=== PATIENT | female | born 1960 | race Caucasian/White ===

== ENCOUNTER → 2017-10-17 | Outpatient (CLI) | payer OTHER, SELFPAY | PROVIDERS: Family Provider Family Medicine; Visit Provider Nurse Practitioner | DX: I48.0 Paroxysmal atrial fibrillation (principal) | CPT/HCPCS: 93306 ==

== ENCOUNTER → 2017-12-24 09:39 | Outpatient (CLI) | payer OTHER, SELFPAY ==
--- NOTE | 2017-12-24 09:43 | MM_ITS ---
MM Dig screening mamm BI w/CAD CAD Screening COMPARISON: Digital mammograms to 2015 and 12/21/2016 INDICATION: There is a history of breast cancer patient's grandmother diagnosed after menopause. TECHNIQUE: Standard CC and MLO images were obtained. R2 CAD reviewed. FINDINGS: Prominent diffuse fibroglandular densities are seen throughout both breasts. There are couple of mole markers left breast. There is a possible change in asymmetric density inner quadrant right breast only definitely seen on the cc view. Given the patient return for spot compression view and 90 degrees lateral view there are no suspicious microcalcifications. IMPRESSION: Moderate diffuse breast density with possible asymmetric density right breast BI-RADS Category: 0 Need Additional Imaging Evaluation RECOMMENDED FOLLOW-UP: IMM - IMMEDIATE FOLLOW-UP RECOMMENDED (A letter has been sent to the patient regarding results of the study.)
== END ==
PROVIDERS: Family Provider Family Medicine; PCP Family Medicine; Visit Provider Obstetrics & Gynecology Gynecology
DX: Z12.31 Encounter for screening mammogram for malignant neoplasm of breast (principal)
CPT/HCPCS: 77067

== ENCOUNTER → 2018-05-10 14:52 | Outpatient (CLI) | payer OTHER, SELFPAY | PROVIDERS: PCP Family Medicine; Visit Provider Internal Medicine Clinical Cardiac Electrophysiology | DX: I48.0 Paroxysmal atrial fibrillation (principal) | CPT/HCPCS: 93005 ==

== ENCOUNTER → 2019-06-26 08:09 | Outpatient (CLI) | payer SELFPAY ==
--- NOTE | 2019-06-26 08:11 | CT_ITS ---
PROCEDURE: CT HEART W CALCIUM SCORE CLINICAL HISTORY: SCREENING COMPARISON: No exams were available for comparison TECHNIQUE: Axial images obtained with sagittal and coronal reformats. All CT scans at the facility use one or more dose reduction, viz: automated exposure control, ma/kV adjustment per patient size (including targeted exams where dose is matched to indication, i.e. head), or iterative reconstruction technique. FINDINGS: The coronary artery calcium score is 2 indicating minimal plaque burden and low cardiovascular disease risk Incidental note is made of a small hiatal hernia. Old granulomatous disease is noted. IMPRESSION: Minimal plaque burden with low cardiovascular disease risk Dictated by: Monty Holder MD 06/26/2019 17:47 Signed by: <Electronically signed by Monty Holder MD in [place]> 06/26/2019 17:47
== END ==
PROVIDERS: PCP Family Medicine; Visit Provider Internal Medicine Cardiovascular Disease
DX: Z13.6 Encounter for screening for cardiovascular disorders (principal)
CPT/HCPCS: 75571

== ENCOUNTER 2019-12-02 21:16 | Observation (INO) ==
[2019-12-02 21:50] LABS: Basophils # 0.1 K/mm3 (0-0.2); Basophils % 0.8 % (0.1-2.0); Eosinophils # 0.4 K/mm3 (0.0-0.4); Eosinophils % 3.2 % (0.1-12.0); Hematocrit 40.2 % (37.0-47.0); Lymphocytes # 3.4 K/mm3 (0.7-4.5); Lymphocytes % 29.5 % (10-50); Mean Corpuscular HGB Conc 32.2 g/dL (31.8-35.4); Mean Corpuscular Volume 88.9 fl (81-99); Monocytes # 0.6 K/mm3 (0.1-1.0); Monocytes % 5.1 % (1.7-9.3); Neutrophils % 61.4 % (37.0-80.0); Platelet Count 429 K/mm3 (142-424); Red Blood Count 4.53 M/mm3 (4.20-5.40); Red Cell Distribution Width 13.9 % (11.5-17.5); White Blood Count 11.4 K/mm3 (4.8-10.8)
[2019-12-02 22:04] LABS: Anion Gap 13.2 mEq/L (5-15); Blood Urea Nitrogen 15 mg/dL (7-18); Calcium 9.2 mg/dL (8.5-10.1); Carbon Dioxide 29 mmol/L (21.0-32.0); Chloride 104 mmol/L (98-107); Glucose 114 mg/dL (74-106); Sodium 143 mmol/L (136-145)
--- NOTE | 2019-12-02 22:58 | Emergency Department Note ---
ED Disposition Clinical Impression: Chest pain Qualifiers: Chest pain type: precordial pain Qualified Code(s): R07.2 - Precordial pain Adverse reaction to drug Qualifiers: Encounter type: initial encounter Qualified Code(s): T50.905A - Adverse effect of unspecified drugs, medicaments and biological substances, initial encounter Disposition: Admitted as Observation Condition on Discharge: Good Referrals: Jp Cuevas MD [Primary Care Provider] - - Critical Care Critical Care Time: No Attestation: On 12/02/19, the high probability of a clinically significant, sudden or life threatening deterioration of the following system(s) required my full and direct attention, intervention and personal management. The time I documented below is in addition to time spent performing reported procedures but includes the following listed in this critical care notation. Medical Decision Making - Medical Records Medical records reviewed: Yes: I reviewed the patient's medical records. - Ashutosh Inquiry Pt receiving controlled substance: No Vital Signs: 12/02/19 21:23 Temperature 98.0 F Temperature Source Oral Pulse Rate [Right Brachial] 64 Respiratory Rate 16 Blood Pressure [Right Arm] 167/82 H Blood Pressure Mean [Right Arm] 110 Blood Pressure Source [Right Arm] Automatic Cuff Blood Pressure Position [Right Arm] Sitting 02 Sat by Pulse Oximetry 99 Oxygen Delivery Method Room Air - Lab Data Lab results reviewed: Yes: I reviewed the patient's lab results. Lab Results 12/02/19 21:30: Influenza Type A Ag Negative, Influenza Type B Ag Negative 12/02/19 21:35: WBC 11.4 H, RBC 4.53, Hgb 13.0, Hct 40.2, MCV 88.9, MCH 28.6, MCHC 32.2, RDW 13.9, Plt Count 429 H, MPV 8.0, Neut % (Auto) 61.4, Lymph % (Auto) 29.5, [place] % (Auto) 5.1, Eos % (Auto) 3.2, Baso % (Auto) 0.8, Neut # (Auto) 7.0, Lymph # (Auto) 3.4, [place] # (Auto) 0.6, Eos # (Auto) 0.4, Baso # (Auto) 0.1 12/02/19 21:35: Sodium 143, Potassium 3.2 L, Chloride 104, Carbon Dioxide 29, Anion Gap 13.2, BUN 15, Creatinine 1.01, Estimated Creat Clear 70, Estimated GFR 56 L, Est GFR ( Amer) 68, Glucose 114 H, Calcium 9.2, Troponin I < 0.02 Result diagrams: 12/02/19 21:35 12/02/19 21:35 Orders (Tests/Meds): ED MEDICATIONS Generic Name Dose Route Start Last Admin Trade Name Freq PRN Reason Stop Dose Admin Sodium Chloride 8 ml 12/02/19 21:27 Sodium Chloride 0.9% 10ml Vial IV 01/01/20 21:26 NEEDED PRN dilute pepcid Discontinued Medications Generic Name Dose Route Start Last Admin Trade Name Freq PRN Reason Stop Dose Admin Aspirin 243 mg 12/02/19 21:47 12/02/19 22:07 Aspirin 81mg Chewable Tablet PO 12/02/19 21:48 243 mg ONCE ONE Administration Diphenhydramine HCl 25 mg 12/02/19 21:27 12/02/19 21:38 Benadryl 50mg/1ml Vial IV 12/02/19 21:28 25 mg ONCE ONE Administration Famotidine 20 mg 12/02/19 21:27 12/02/19 21:37 Pepcid 20mg/2ml Vial IV 12/02/19 21:28 20 mg ONCE ONE Administration Methylprednisolone Sodium Succinate 125 mg 12/02/19 21:27 12/02/19 21:37 Solu-Medrol 125mg/2ml Vial IV 12/02/19 21:28 125 mg ONCE ONE Administration ORDERS Category Date Time Status Chest XR 2 view (NOT portable) [XR chest 2V] Stat Exams 12/02/19 21:28 Taken Troponin I Q3H Lab 12/03/19 01:00 Ordered Troponin I Q3H Lab 12/03/19 04:00 Ordered - ECG Data Tracing #1 Normal Sinus Rhythm: Yes Ischemic changes: non-specific ST-T wave changes Tracing #2 Normal Sinus Rhythm: Yes Ischemic changes: non-specific ST-T wave changes - Physician Consults Physician Consulted: faith Reason -: Admission Chest Pain HPI - General Chief Complaint: Allergic Reaction Stated Complaint: Possible Reaction to Medication Time Seen by Provider: 12/02/19 21:30 Mode of Arrival: Family Vehicle Source of Information: Patient, Spouse, Medical Record Limitations: No Limitations Description of Symptoms (Recalled from ER Triage Doc. by RN): pt spoke with dr cuevas who recommended er eval for possible allergic reaction; pt is alert, o riented. states she has been taking tamiflu for 5 days and has progressively worsening tightness/swelling in her throat. denies any other new meds. pt states she has a history of allergies to pcn. - History of Present Illness HPI narrative: pt with feeling of throat fullness assoc with chest tightness over the last few days - no known heart disease but has htn - has been on jesusita and has cough for last few weeks and on tamiflu for exposure to flu - had relief with ntg - no tongue swelling reported MD complaint: chest pain indicative of cardiac Onset (ago): hour(s) Duration: now resolved Activity at onset: during rest Pain location: substernal Quality: heaviness Pain radiation: neck Relieving factors: nitroglycerin Risk Factors for CAD: Hypertension, Family Hx of CAD Treatments prior to or on arrival for Cardiac Chest Pain: none - TAMIKA Score for Non-Stemi Age of Patient: 50-59 years old Heart Rate: 50-69 bpm Systolic Blood Pressure: 160-199 mmHg Serum Creatinine: 0.80-1.19 mg/dl CHF [place] Class: I-No CHF Other Risk Factors: None Non-Stemi Risk Score: 61 - Related Data On Oral Contraceptives: No Home Medications Medication Instructions Recorded Confirmed Fluticasone Propionate 1 spray INHALATION DAILY 02/02/19 12/02/19 Metoclopramide HCl [Reglan 5mg 5 mg PO TID 02/02/19 12/02/19 Tablet] hydroCHLOROthiazide [HCTZ 12.5mg 12.5 mg PO DAILY 02/02/19 12/02/19 capsule] Sod Picosulf/Mag Ox/Citric AC 1 packet PO DAILY 09/24/19 12/02/19 [Prepopik] Aspirin 81 mg PO DAILY 09/29/19 12/02/19 Levothyroxine Sodium [Synthroid 75 mcg PO DAILY 09/29/19 12/02/19 75mcg (0.075mg) tablet] Loratadine [Claritin 10mg Tablet] 10 mg PO DAILY 09/29/19 12/02/19 Nebivolol HCl [Bystolic] 10 mg PO DAILY 09/29/19 12/02/19 Ramipril 10 mg PO DAILY 09/29/19 12/02/19 Miscellaneous [Unknown Home 20 mg PO BID 09/30/19 12/02/19 Medication] Allergies Allergy/AdvReac Type Severity Reaction Status Date / Time Penicillins [PENICILLINS] Allergy Unknown Verified 10/10/19 09:59 [facility] History - Hepatitis A Screen Drug use history?: No High risk sexual behaviors?: No History of sexually transmitted infection?: No Currently employed?: No Childcare worker?: No Do you have indoor plumbing?: Yes Do you have electricity?: Yes Attestation statement:: This patient has been screened for Hepatitis A risk factors. I have reviewed the patient's past medical history: Yes Medical History: Reports:: Atrial Fibrillation, Hypertension Denies:: Cancer, Diabetes Mellitus Type 1, Diabetes Mellitus Type 2, Internal Pacemaker, MRSA, Seizures Other Medical History: Denies: Blood Transfusion Reaction Laterality Cases: Bilateral: Tonsillectomy Other Surgeries: Yes: Colonoscopy. No: Pacemaker Amputation: No Fractures: Yes (SHOULDERS AND BACK) - Social History Smoking Status: Never smoker Alcohol Intake: never Substance Use Type: other Occupational Status: employed, other Housing: house Household Members: spouse Family Hx:: No significant family history ROS Obtained: Yes All systems reviewed & no additional complaints - Constitutional Constitutional: Denies fever(s) - Eyes Eyes: Denies change in vision - ENT Ears, Nose, Mouth, and Throat: Denies sore throat - Cardiovascular Cardiovascular: Reports chest pain at rest, Denies dyspnea - Respiratory Respiratory: No cough - Gastrointestinal Gastrointestingal: Denies: vomiting - Genitourinary Female Genitourinary: Denies hematuria - Musculoskeletal Musculoskeletal: Denies joint pain - Integumentary/Breasts Skin/Breast: Denies rash - Neurologic Neurologic: Denies focal weakness, Denies seizure-like activity Physical Exam - General General appearance: alert - Head Head exam: normocephalic - Eye Eye exam: Present: PERRL, EOMI - ENT ENT exam: Present: mucous membranes moist, other (tongue ok ) - Neck Neck exam: Present: trachea midline - Respiratory Respiratory exam: Present: normal lung sounds bilaterally. Absent: respiratory distress - Cardiovascular Cardiovascular exam: Present: regular rate, systolic murmur, +S4 - Abdominal Exam Abdominal exam: Present: soft - Extremities Exam Extremities exam: Present: full ROM - Neurological Exam Neurological exam: Present: alert, CN II-XII intact - Psychiatric Psychiatric exam: Present: normal affect - Skin Skin exam: Absent: rash
[2019-12-02 23:25] LABS: Microscopic, Urine URINE MICROSCOPIC (MICROSCOPIC)
[2019-12-02 23:27] LABS: Appearance,Urine CLEAR (Clear); Bilirubin,Urine Negative (Negative); Blood, Urine TRACE-L (Negative); Color,Urine YELLOW (Yellow); Glucose,Urine (UA) Negative (Negative); Ketones,Urine Negative (Negative); Leukocyte Esterase,Urine Negative (Negative); Protein,Urine Negative (Negative); Specific Gravity, Urine 1.015 (1.005-1.030); Urobilinogen,Urine 0.2 EU/dl (0.2)
[2019-12-02 23:35] LABS: Bacteria,Urine Trace /lpf; RBC,Urine Occasional #/hpf (0-3); Squamous Epithelial Cell,Urine Occasional #/hpf (0-5); WBC,Urine Occasional #/hpf (0-3)
[2019-12-03 04:20] LABS: Basophils % 0.2 % (0.1-2.0); Eosinophils % 0.2 % (0.1-12.0); Hematocrit 37.3 % (37.0-47.0); Hemoglobin 11.9 g/dL (12.2-16.2); Lymphocytes % 13.1 % (10-50); Mean Corpuscular HGB Conc 31.8 g/dL (31.8-35.4); Mean Corpuscular Volume 88.7 fl (81-99); Mean Platelet Volume 8.2 fl (7.4-10.4); Monocytes # 0.1 K/mm3 (0.1-1.0); Monocytes % 1.7 % (1.7-9.3); Neutrophils # 6.6 K/mm3 (1.8-7.8); Neutrophils % 84.8 % (37.0-80.0); Platelet Count 411 K/mm3 (142-424); Red Blood Count 4.21 M/mm3 (4.20-5.40); Red Cell Distribution Width 13.7 % (11.5-17.5); White Blood Count 7.8 K/mm3 (4.8-10.8)
[2019-12-03 04:32] LABS: Anion Gap 15.6 mEq/L (5-15); Calcium 8.6 mg/dL (8.5-10.1); Chol/HDL Ratio 3.8 (1-3.5)
--- NOTE | 2019-12-03 07:15 | Pharmacy Consult Notes ---
[facility] Pharmacy VTE Monitoring - Patient Demographics Admission date: 12/03/19 Report Date: 12/03/19 Time: 07:14 Allergies/Adverse Reactions: Patient Allergies Penicillins [PENICILLINS] Allergy (Unknown, Verified 10/10/19 09:59) Height: 1.63 m Weight: 73.7 kg Patient Problems: Current Active Problems Chest pain (Acute) Adverse reaction to drug (Acute) - VTE Risk Labs: VTE Related Lab Results Hgb 11.9 g/dL (12.2-16.2) L 12/03/19 04:10 Hct 37.3 % (37.0-47.0) 12/03/19 04:10 Plt Count 411 K/mm3 (142-424) 12/03/19 04:10 BUN 12 mg/dL (7-18) 12/03/19 04:10 Creatinine 0.99 mg/dL (0.55-1.02) 12/03/19 04:10 Estimated Creat Clear 72 mL/min (50-200) 12/03/19 04:10 Was VTE Risk Assessment Performed: Yes VTE Score: 3 VTE Risk Level: Low Risk - Prophylaxis VTE Prophylaxis Ordered?: Yes Types of VTE Prophylaxis: TEDS Knee High Location of Applied Device: Bilateral Lower Extremeties
--- NOTE | 2019-12-03 08:05 | History & Physical Report ---
*Admission Date: 12/03/19 *Chief complaint: chest pressure, cough *History of present illness: Ms. Espinoza is a 59-year-old female with a history of hypothyroidism, hypertension, and A. fib who began feeling poorly approximately a week ago. She states her boss had the flu, therefore she started Tamiflu for prophylaxis. She did have some chills but no fever approximately a week ago and has had some sinus congestion and a sore throat. She has also had a cough that has not been productive. She states the cough and the chest pressure began to worsen and she felt like her throat was swelling. She states she called to make a doctor's appointment and was going to see Dr. cuevas today, however last night, she could not lay down due to shortness of breath and called Dr. Cuevas golf tournament consultant. She was worried she may be having a reaction to the Tamiflu. She was told to present to the emergency room. In the ER, she was given 3 aspirin, Benadryl, and nitroglycerin. Her chest pressure did resolve, but she is unsure which medication helped. She feels a little bit better this morning. Her shortness of breath has improved and as has her chest pressure. Her chest x-ray did show a right basilar pneumonia. [facility] History I have reviewed the patient's past medical history: Yes Medical History: Reports:: Atrial Fibrillation, Hypertension Denies:: Cancer, Diabetes Mellitus Type 1, Diabetes Mellitus Type 2, Internal Pacemaker, MRSA, Seizures *Have you ever received a pneumonia vaccine?: Yes *Have you received a flu vaccine this season?: Yes Other Medical History: Reports: Hypothyroidism, Other (Avascular necrosis right shoulder ). Denies: Blood Transfusion Reaction Laterality Cases: Right: Other, Bilateral: Tonsillectomy Other Surgeries: Yes: Colonoscopy, Tubal Ligation, Other (RIGHT SHOULDER REPAIR). No: Pacemaker Amputation: No Fractures: Yes (SHOULDERS AND BACK) - *Social History Educational Level: Completed High School Smoking Status: Never smoker Alcohol Intake: never Substance Use Type: other *Occupational Status:: employed Housing: house Household Members: spouse *Travel in the last 8 weeks: None Family Hx:: Cancer, Coronary Artery Disease, Diabetes, Thyroid Disorder Review of Systems - Constitutional Reports body ache(s), Reports chills, Reports headache(s), Reports weakness, Denies fever(s) - Eyes Denies blurry vision, Denies double vision - ENT Reports nasal congestion, Reports sore throat - *Cardiovascular Reports chest pain, Reports shortness of breath, Denies rapid, pounding, or irregular heartbeat - *Respiratory Reports cough, Reports shortness of breath - *Gastrointestinal Reports nausea, Denies abdominal pain, Denies loose stools, Denies vomiting - *Genitourinary Denies difficulty urinating, Denies painful urination - *Musculoskeletal Reports body aches, Denies joint pain - *Neurologic Reports headache(s), Reports dizziness, Reports weakness, Denies localized weakness, Denies seizure-like activity Meds Home Medications Medication Instructions Recorded Confirmed Type hydroCHLOROthiazide [HCTZ 12.5mg 12.5 mg PO DAILY 02/02/19 12/03/19 History capsule] Aspirin 81 mg PO DAILY 09/29/19 12/03/19 History Levothyroxine Sodium [Synthroid 75 mcg PO DAILY 09/29/19 12/03/19 History 75mcg (0.075mg) tablet] Nebivolol HCl [Bystolic] 10 mg PO DAILY 09/29/19 12/03/19 History Ramipril 10 mg PO DAILY 09/29/19 12/03/19 History Flecainide Acetate [Tambocor 50mg 50 mg PO BID 12/03/19 12/03/19 History tablet] Glucosamine/D3/Boswellia [place] 1 each PO BID 12/03/19 12/03/19 History [Osteo Bi-Flex Tablet] Allergies Allergy/AdvReac Type Severity Reaction Status Date / Time Penicillins [PENICILLINS] Allergy Unknown Verified 10/10/19 09:59 Exam Vital signs and Labs for Last 24 Hours: Temp Pulse Resp BP Pulse Ox 98.0 F 58 L 18 117/62 99 12/03/19 05:48 12/03/19 05:48 12/03/19 05:48 12/03/19 05:48 12/03/19 05:48 Laboratory Results - last 24 hr 12/02/19 21:30: Influenza Type A Ag Negative, Influenza Type B Ag Negative 12/02/19 21:35: WBC 11.4 H, RBC 4.53, Hgb 13.0, Hct 40.2, MCV 88.9, MCH 28.6, MCHC 32.2, RDW 13.9, Plt Count 429 H, MPV 8.0, Neut % (Auto) 61.4, Lymph % (Auto) 29.5, [place] % (Auto) 5.1, Eos % (Auto) 3.2, Baso % (Auto) 0.8, Neut # (Auto) 7.0, Lymph # (Auto) 3.4, [place] # (Auto) 0.6, Eos # (Auto) 0.4, Baso # (Auto) 0.1 12/02/19 21:35: Sodium 143, Potassium 3.2 L, Chloride 104, Carbon Dioxide 29, Anion Gap 13.2, BUN 15, Creatinine 1.01, Estimated Creat Clear 70, Estimated GFR 56 L, Est GFR ( Amer) 68, Glucose 114 H, Calcium 9.2, Troponin I < 0.02 12/02/19 22:01: Urine Color Yellow, Urine Appearance Clear, Urine pH 7.0, Ur Specific [place] 1.015, Urine Protein Negative, Urine Glucose (UA) Negative, Urine Ketones Negative, Urine Blood Trace-l, Urine Nitrate Negative, Urine Bilirubin Negative, Urine Urobilinogen 0.2, Ur Leukocyte Esterase Negative, Urine RBC Occasional, Urine WBC Occasional, Ur Squamous Epith Cells Occasional, Urine Bacteria Trace 12/03/19 00:55: Troponin I < 0.02 12/03/19 04:10: Troponin I < 0.02 12/03/19 04:10: WBC 7.8 D, RBC 4.21, Hgb 11.9 L, Hct 37.3, MCV 88.7, MCH 28.2, MCHC 31.8, RDW 13.7, Plt Count 411, MPV 8.2, Neut % (Auto) 84.8 H, Lymph % (Auto) 13.1, [place] % (Auto) 1.7, Eos % (Auto) 0.2, Baso % (Auto) 0.2, Neut # (Auto) 6.6, Lymph # (Auto) 1.0, [place] # (Auto) 0.1, Eos # (Auto) 0.0, Baso # (Auto) 0.0 12/03/19 04:10: Sodium 144, Potassium 3.6, Chloride 106, Carbon Dioxide 26, Anion Gap 15.6 H, BUN 12, Creatinine 0.99, Estimated Creat Clear 72, Estimated GFR 58 L, Est GFR ( Amer) 70, Glucose 144 H D, Calcium 8.6, Triglycerides 47, Cholesterol 175, LDL Cholesterol 120, VLDL Cholesterol 9, HDL Cholesterol 46, Cholesterol/HDL Ratio 3.8 H I & O for Last 24 hours: Intake & Output 11/30/19 12/01/19 12/02/19 12/03/19 11:59 11:59 11:59 11:59 Intake Total 1000 / 1000 Balance 1000 / 1000 Weight 162 lb 7.691 oz - Constitutional no acute distress - *Routine HEENT Exam Head: Present: normocephalic Eye: Present: EOMI, PERRL ENT: Present: mucous membranes dry - *Routine Neck Exam Present: supple. Absent: lymphadenopathy - *Routine Respiratory Exam Present: decreased breath sounds (right base), CTA bilaterally - *Routine Cardiovascular Exam Present: RRR - *Routine Abdominal Exam Present: soft, normoactive bowel sounds. Absent: tenderness - *Routine Extremities Exam Absent: cyanosis, clubbing, edema - *Routine Skin Exam Present: warm. Absent: rash - *Routine Neurological Exam Present: alert, oriented X3 H&P: Result - Impressions CXR - Patchy infiltrate in the right lung base Assessment and Plan (1) Chest pain Current visit: Yes Status: Acute Qualifiers: Chest pain type: precordial pain Qualified Code(s): R07.2 - Precordial pain Category: Medical Code(s): R07.9 - Chest pain, unspecified (2) Pneumonia Current visit: Yes Status: Acute Category: Medical Code(s): J18.9 - Pne umonia, unspecified organism (3) Adverse reaction to drug Current visit: Yes Status: Acute Qualifiers: Encounter type: initial encounter Qualified Code(s): T50.905A - Adverse effect of unspecified drugs, medicaments and biological substances, initial encounter Category: Medical Code(s): T50.905A - Adverse effect of unspecified drugs, medicaments and biological substances, initial encounter (4) Hypokalemia Current visit: Yes Status: Resolved Category: Medical Code(s): E87.6 - Hypokalemia (5) Hypertension Current visit: Yes Status: Chronic Category: Medical Code(s): I10 - Essential (primary) hypertension (6) History of atrial fibrillation Current visit: Yes Status: Chronic Category: Medical Code(s): Z86.79 - Personal history of other diseases of the circulatory system - Assessment and plan all Dx Assessment and Plan for all problems:: The patient does feel better after receiving steroids, Benadryl, aspirin, and nitro in the emergency room. Her chest pressure has resolved and her shortness of breath has improved. Her chest x-ray did show a right-sided pneumonia, which would explain the elevated white blood cell count and the cough for the past week. It is unclear whether her other symptoms were due to a reaction to the Tamiflu, or the pneumonia. Patient will need to be started on antibiotics. Will discuss with Dr. Cuevas. She may be able to be discharged home today on oral antibiotics. Her white blood cell count has normalized as has her potassium. Her oxygen has been stable on room air. Cardiology has been consulted and an echo has been ordered by the emergency room physician.
--- NOTE | 2019-12-03 09:20 | Consult Report ---
History of Present Illness Consult date: 12/03/19 Requesting physician: Jp Nguyen Consult reason: chest pain, shortness of breath Chief complaint: SOB and chest pain Additional Medical History:: 1. palps 2. afib 3. thyroid disorder 4. htn History of present illness: This is a 59-year-old white female who presented to the emergency department with complaints of shortness of breath, chest pain, and cough. The patient does have a history of hypertension, atrial fibrillation and hypothyroidism. She states for the last week she has not been feeling well. Her boss was diagnosed with the flu and she was started on Tamiflu for prophylaxis. She states that she has been having chills and a nonproductive cough. She states that her throat has been sore as well. The patient thought maybe she was having a re action to the Tamiflu and decided to come into the emergency department because she was now having shortness of breath and chest pain as well. The patient reports that she gets significantly short of breath and has a cough that is nonproductive. When she takes deep breath she has having pain in her chest. She states that this is a heavy and pressure sensation. She states last night she could not lie flat because of the shortness of breath and decided to come into the emergency department. She was treated with 3 aspirin, Benadryl and nitroglycerin. She did have resolution of her chest pressure and shortness of breath at that time. She states that she is still a little short of breath at times and has some chest pressure with coughing still but it is much better. The patient did have a right basilar pneumonia on chest x-ray and is being treated with antibiotics per her primary care provider. She denies any edema, fever, nausea, vomiting, diarrhea. [facility] History I have reviewed the patient's past medical history: Yes Medical History: Reports:: Atrial Fibrillation, Hypertension Denies:: Cancer, Diabetes Mellitus Type 1, Diabetes Mellitus Type 2, Internal Pacemaker, MRSA, Seizures *Have you ever received a pneumonia vaccine?: Yes *Have you received a flu vaccine this season?: Yes Other Medical History: Reports: Hypothyroidism, Other (Avascular necrosis right shoulder ). Denies: Blood Transfusion Reaction Laterality Cases: Right: Other, Bilateral: Tonsillectomy Other Surgeries: Yes: Colonoscopy, Tubal Ligation, Other (RIGHT SHOULDER REPAIR). No: Pacemaker Amputation: No Fractures: Yes (SHOULDERS AND BACK) - *Social History Educational Level: Completed High School Smoking Status: Never smoker Alcohol Intake: never Substance Use Type: other *Occupational Status:: employed Housing: house Household Members: spouse *Travel in the last 8 weeks: None Family Hx:: Cancer, Coronary Artery Disease, Diabetes, Thyroid Disorder Meds Home Medications Medication Instructions Recorded Confirmed Type hydroCHLOROthiazide [HCTZ 12.5mg 12.5 mg PO DAILY 02/02/19 12/03/19 History capsule] Aspirin 81 mg PO DAILY 09/29/19 12/03/19 History Levothyroxine Sodium [Synthroid 75 mcg PO DAILY 09/29/19 12/03/19 History 75mcg (0.075mg) tablet] Nebivolol HCl [Bystolic] 10 mg PO DAILY 09/29/19 12/03/19 History Ramipril 10 mg PO DAILY 09/29/19 12/03/19 History Flecainide Acetate [Tambocor 50mg 50 mg PO BID 12/03/19 12/03/19 History tablet] Glucosamine/D3/Boswellia Madison 1 each PO BID 12/03/19 12/03/19 History [Osteo Bi-Flex Tablet] Oseltamivir Phosphate 75 mg PO DAILY 12/03/19 12/03/19 History Allergies Allergy/AdvReac Type Severity Reaction Status Date / Time Penicillins [PENICILLINS] Allergy Unknown Verified 10/10/19 09:59 Review of Systems - Review of Systems Review of systems:: pertinent systems reviewed and negative unless documented below - Constitutional Reports body ache(s), Reports chills, Reports fatigue - *Cardiovascular Reports chest pain, Reports chest pain at rest - *Respiratory Reports chest congestion, Reports cough, Reports shortness of breath, Reports shortness of breath with activity - *Neurologic Reports headache(s), Reports dizziness, Reports weakness, Denies localized weakness, Denies seizure-like activity Exam Vital signs and Labs for Last 24 Hours: Temp Pulse Resp BP Pulse Ox 98.0 F 73 19 132/61 99 12/03/19 08:00 12/03/19 08:00 12/03/19 08:00 12/03/19 08:00 12/03/19 08:00 Laboratory Results - last 24 hr 12/02/19 21:30: Influenza Type A Ag Negative, Influenza Type B Ag Negative 12/02/19 21:35: WBC 11.4 H, RBC 4.53, Hgb 13.0, Hct 40.2, MCV 88.9, MCH 28.6, MCHC 32.2, RDW 13.9, Plt Count 429 H, MPV 8.0, Neut % (Auto) 61.4, Lymph % (Auto) 29.5, Dixie % (Auto) 5.1, Eos % (Auto) 3.2, Baso % (Auto) 0.8, Neut # (Auto) 7.0, Lymph # (Auto) 3.4, Dixie # (Auto) 0.6, Eos # (Auto) 0.4, Baso # (Auto) 0.1 12/02/19 21:35: Sodium 143, Potassium 3.2 L, Chloride 104, Carbon Dioxide 29, Anion Gap 13.2, BUN 15, Creatinine 1.01, Estimated Creat Clear 70, Estimated GFR 56 L, Est GFR ( Amer) 68, Glucose 114 H, Calcium 9.2, Troponin I < 0.02 12/02/19 22:01: Urine Color Yellow, Urine Appearance Clear, Urine pH 7.0, Ur Specific [place] 1.015, Urine Protein Negative, Urine Glucose (UA) Negative, Urine Ketones Negative, Urine Blood Trace-l, Urine Nitrate Negative, Urine Bilirubin Negative, Urine Urobilinogen 0.2, Ur Leukocyte Esterase Negative, Urine RBC Occasional, Urine WBC Occasional, Ur Squamous Epith Cells Occasional, Urine Bacteria Trace 12/03/19 00:55: Troponin I < 0.02 12/03/19 04:10: Troponin I < 0.02 12/03/19 04:10: WBC 7.8 D, RBC 4.21, Hgb 11.9 L, Hct 37.3, MCV 88.7, MCH 28.2, MCHC 31.8, RDW 13.7, Plt Count 411, MPV 8.2, Neut % (Auto) 84.8 H, Lymph % (Auto) 13.1, Dixie % (Auto) 1.7, Eos % (Auto) 0.2, Baso % (Auto) 0.2, Neut # (Auto) 6.6, Lymph # (Auto) 1.0, Dixie # (Auto) 0.1, Eos # (Auto) 0.0, Baso # (Auto) 0.0 12/03/19 04:10: Sodium 144, Potassium 3.6, Chloride 106, Carbon Dioxide 26, Anion Gap 15.6 H, BUN 12, Creatinine 0.99, Estimated Creat Clear 72, Estimated GFR 58 L, Est GFR ( Amer) 70, Glucose 144 H D, Calcium 8.6, Triglycerides 47, Cholesterol 175, LDL Cholesterol 120, VLDL Cholesterol 9, HDL Cholesterol 46, Cholesterol/HDL Ratio 3.8 H I & O for Last 24 hours: Intake & Output 11/30/19 12/01/19 12/02/19 12/03/19 23:59 23:59 23:59 23:59 Intake Total 1000 / 1000 Balance 1000 / 1000 Weight 160 lb 162 lb 7.691 oz Narrative: EKG is sinus rhythm with a rate of 74 and poor R wave progression. Preliminary EF on echocardiogram is 50 to 60%. Awaiting official report. - Constitutional no acute distress, average body habitus - *Routine HEENT Exam Head: Present: normocephalic, atraumatic Eye: Present: EOMI, PERRL ENT: Present: mucous membranes moist - *Routine Neck Exam Present: supple, full ROM, normal carotid upstroke. Absent: JVD, carotid bruit, lymphadenopathy - *Routine Respiratory Exam Present: decreased breath sounds, rhonchi - *Routine Cardiovascular Exam Present: RRR, Normal S1, Normal S2. Absent: murmur - *Routine Abdominal Exam Present: soft, normoactive bowel sounds. Absent: tenderness, distended, rebound - *Routine Extremities Exam Present: full ROM, pulses intact, normal capillary refill. Absent: cyanosis, clubbing, edema - *Routine Skin Exam Present: intact, warm. Absent: erythema, rash - *Routine Neurological Exam Present: alert, oriented X3, CN II-XII intact. Absent: sensory deficit, motor deficit - Routine Psychiatric Exam Present: normal affect, normal thought process - Detailed Eye Exam Eyelids: Left normal inspection Assessment and Plan (1) Shortness of breath Current visit: Yes Status: Acute Category: Medical Code(s): R06.02 - Shortness of breath (2) Cough Current visit: Yes Status: Acute Category: Medical Code(s): R05 - Cough (3) Chest pain Current visit: Yes Status: Acute Qualifiers: Chest pain type: precordial pain Qualified Code(s): R07.2 - Precordial pain Category: Medical Code(s): R07.9 - Chest pain, unspecified (4) Pneumonia Current visit: Yes Status: Acute Category: Medical Code(s): J18.9 - Pneumonia, unspecified organism (5) Adverse reaction to drug Current visit: Yes Status: Acute Qualifiers: Encounter type: initial encounter Qualified Code(s): T50.905A - Adverse effect of unspecified drugs, medicaments and biological substances, initial encounter Category: Medical Code(s): T50.905A - Adverse effect of unspecified drugs, medicaments and biological substances, initial encounter (6) Hypokalemia Current visit: Yes Status: Resolved Category: Medical Code(s): E87.6 - Hypokalemia (7) Hypertension Current visit: Yes Status: Chronic Category: Medical Code(s): I10 - Essential (primary) hypertension (8) History of atrial fibrillation Current visit: Yes Status: Chronic Category: Medical Code(s): Z86.79 - Personal history of other diseases of the circulatory system - Assessment and plan all Dx Assessment and Plan for all problems:: Plan: 1. The patient was admitted to the hospital with shortness of breath, chest pain and a cough. The patient has been diagnosed with right basilar pneumonia and is being treated with antibiotics per her primary care provider. Will defer. 2. The patient has ruled out for an HI with 3- troponins. 3. Her echocardiogram does show preliminary EF of 50 to 60%. We are awaiting official dictation. There appears to be no wall motion abnormalities. 4. No plans for invasive cardiac testing as she has ruled out and her ejection fraction is normal. 5. Her blood pressure is well controlled. 6. Her LDL goal is less than 100. 7. The patient states that she does have a history of atrial fibrillation when she was toxic with her thyroid. She remains in sinus rhythm at this time. She follows with a molding machine tender, Dr. Jo, at [facility] will defer treatment of this to her regular molding machine tender. 8. No further recommendations at this time from a cardiac standpoint. The patient symptoms are most likely from her pneumonia. We do recommend that she follows up with her regular molding machine tender in 1 to 2 weeks. She states that she already has an appointment scheduled around February 18th. Thank you for the opportunity to help participate in the care of this patient.
--- NOTE | 2019-12-03 11:15 | Pharmacy Consult Notes ---
[facility] Pharmacy VTE Monitoring - Patient Demographics Admission date: 12/03/19 Report Date: 12/03/19 Time: 11:12 Allergies/Adverse Reactions: Patient Allergies Penicillins [PENICILLINS] Allergy (Unknown, Verified 10/10/19 09:59) Height: 1.63 m Weight: 73.7 kg Patient Problems: Current Active Problems Chest pain (Acute) Adverse reaction to drug (Acute) Pneumonia (Acute) Hypertension (Chronic) History of atrial fibrillation (Chronic) Shortness of breath (Acute) Cough (Acute) - VTE Risk Labs: VTE Related Lab Results Hgb 11.9 g/dL (12.2-16.2) L 12/03/19 04:10 Hct 37.3 % (37.0-47.0) 12/03/19 04:10 Plt Count 411 K/mm3 (142-424) 12/03/19 04:10 BUN 12 mg/dL (7-18) 12/03/19 04:10 Creatinine 0.99 mg/dL (0.55-1.02) 12/03/19 04:10 Estimated Creat Clear 72 mL/min (50-200) 12/03/19 04:10 Was VTE Risk Assessment Performed: Yes VTE Score: 3 VTE Risk Level: Low Risk - Prophylaxis VTE Prophylaxis Ordered?: Yes Types of VTE Prophylaxis: TEDS Knee High Location of Applied Device: Bilateral Lower Extremeties Pharmacologic Type: Other
--- NOTE | 2019-12-04 08:11 | Progress Note ---
Internal Medicine - PN: Subj *Date: 12/04/19 *Time: 08:08 Interval history: The patient feels well this morning. She did cough up a small and a sputum and this was sent for analysis. She would like to go home today. When she was admitted she was placed on carvedilol. I will let her resume her nebivolol at home. She is to discontinue the ramipril. She will receive a prescription for losartan 25 mg a day. We will follow-up on her blood pressure in the office next week, at the beginning of the week. She will discontinue the Tamiflu. Exam Vital signs and Labs for Last 24 Hours: Temp Pulse Resp BP Pulse Ox 98.0 F 74 16 117/62 95 12/04/19 04:00 12/04/19 04:00 12/04/19 04:00 12/04/19 04:00 12/04/19 04:00 I & O for Last 24 hours: Intake & Output 12/01/19 12/02/19 12/03/19 12/04/19 11:59 11:59 11:59 11:59 Intake Total 1360 / 1360 2941 / 2941 Balance 1360 / 1360 2941 / 2941 Weight 162 lb 7.691 oz 169 lb 5.04 oz Microbiology Reports for the Last 24 Hours: Microbiology 12/03/19 18:10 Sputum - Expectorated Sputum Gram Stain - Final - Constitutional no acute distress - *Routine HEENT Exam Head: Present: normocephalic ENT: Present: mucous membranes moist - *Routine Respiratory Exam Present: CTA bilaterally - *Routine Cardiovascular Exam Present: RRR (No ectopics) - *Routine Extremities Exam Absent: edema - *Routine Neurological Exam Present: alert, oriented X3 Assessment and Plan (1) Pneumonia Current visit: Yes Status: Acute Category: Medical Code(s): J18.9 - Pneumonia, unspecified organism (2) Shortness of breath Current visit: Yes Status: Acute Category: Medical Code(s): R06.02 - Shortness of breath (3) Cough Current visit: Yes Status: Acute Category: Medical Code(s): R05 - Cough (4) Chest pain Current visit: Yes Status: Acute Qualifiers: Chest pain type: precordial pain Qualified Code(s): R07.2 - Precordial pain Category: Medical Code(s): R07.9 - Chest pain, unspecified (5) Adverse reaction to drug Current visit: Yes Status: Acute Qualifiers: Encounter type: initial encounter Qualified Code(s): T50.905A - Adverse effect of unspecified drugs, medicaments and biological substances, initial encounter Category: Medical Code(s): T50.905A - Adverse effect of unspecified drugs, medicaments and biological substances, initial encounter (6) Hypokalemia Current visit: Yes Status: Resolved Category: Medical Code(s): E87.6 - Hypokalemia (7) Hypertension Current visit: Yes Status: Chronic Category: Medical Code(s): I10 - Essential (primary) hypertension (8) History of atrial fibrillation Current visit: Yes Status: Chronic Category: Medical Code(s): Z86.79 - Personal history of other diseases of the circulatory system - Assessment and plan all Dx Assessment and Plan for all problems:: See above narrative.
[2019-12-04 08:22] LABS: Anion Gap 11.2 mEq/L (5-15); Calcium 8.3 mg/dL (8.5-10.1)
[2019-12-04 08:40] LABS: Basophils % 0.3 % (0.1-2.0); Eosinophils # 0.1 K/mm3 (0.0-0.4); Eosinophils % 0.3 % (0.1-12.0); Hematocrit 37.4 % (37.0-47.0); Hemoglobin 11.6 g/dL (12.2-16.2); Lymphocytes # 3.9 K/mm3 (0.7-4.5); Lymphocytes % 22.9 % (10-50); Mean Corpuscular HGB Conc 30.9 g/dL (31.8-35.4); Mean Corpuscular Volume 89.3 fl (81-99); Mean Platelet Volume 7.7 fl (7.4-10.4); Monocytes # 0.6 K/mm3 (0.1-1.0); Monocytes % 3.6 % (1.7-9.3); Neutrophils # 12.3 K/mm3 (1.8-7.8); Neutrophils % 72.9 % (37.0-80.0); Platelet Count 400 K/mm3 (142-424); Red Blood Count 4.19 M/mm3 (4.20-5.40); White Blood Count 16.9 K/mm3 (4.8-10.8)
[2019-12-04 09:19] VITALS: BP 128/57
[2019-12-04 09:52] LABS: Lymphocytes % 25 % (10-50); Monocytes % 1 % (2-9); Neutrophils % 74 % (42-76); RBC Morphology Normal; Total Cells Counted 100
--- NOTE | 2019-12-04 13:15 | Discharge Summary ---
General - General Admission date:: 12/03/19 Discharge date: 12/04/19 HPI HPI: Ms. Espinoza is a 59-year-old female with a history of hypothyroidism, hypertension, and A. fib who began feeling poorly approximately a week ago. She states her boss had the flu, therefore she started Tamiflu for prophylaxis. She did have some chills but no fever approximately a week ago and has had some sinus congestion and a sore throat. She has also had a cough that has not been productive. She states the cough and the chest pressure began to worsen and she felt like her throat was swelling. She states she called to make a doctor's appointment and was going to see Dr. cuevas today, however last night, she could not lay down due to shortness of breath and called Dr. Cuevas superintendent transmission. She was worried she may be having a reaction to the Tamiflu. She was told to present to the emergency room. In the ER, she was given 3 aspirin, Benadryl, and nitroglycerin. Her chest pressure did resolve, but she is unsure which medication helped. She feels a little bit better this morning. Her shortness of breath has improved and as has her chest pressure. Her chest x-ray did show a right basilar pneumonia. Hospital Course Hospital Course: The patient did feel better after receiving steroids, Benadryl, aspirin, and and nitro in the emergency room. Her chest pressure had resolved and her shortness of breath improved. Her chest x-ray showed a right-sided pneumonia and her white blood cell count was initially elevated, therefore she was started on Zithromax. It was unclear whether her initial symptoms were due to a reaction to the Tamiflu, the ramipril, or the pneumonia. Cardiology was consulted and an echo was ordered. Cardiology saw the patient and was ruled out for an VT with 3- troponins. Her pulmonary echo showed an EF of 50 to 60%. They had no further recommendations from a cardiac standpoint and felt she could be discharged home. The patient was kept overnight for monitoring and felt much better the next day. She was able to cough up a small amount of sputum that was sent for analysis but is still pending. When she was initially admitted, she was placed on carvedilol. It was felt she was stable to be discharged home and she could resume her nebivolol. Dr. Cuevas did discontinue her ramipril and sent a prescription for losartan 25 mg daily. Her Tamiflu was discontinued and she will follow-up in the office to recheck her blood pressure next week. She will also be discharged on continued Zithromax for the pneumonia Objective Vital signs: Temp Pulse Resp BP Pulse Ox 97.5 F L 72 18 128/57 L 97 12/04/19 08:00 12/04/19 08:00 12/04/19 08:00 12/04/19 08:00 12/04/19 08:00 Narrative: - Constitutional no acute distress - *Routine HEENT Exam Head: Present: normocephalic Eye: Present: EOMI, PERRL ENT: Present: mucous membranes dry - *Routine Neck Exam Present: supple. Absent: lymphadenopathy - *Routine Respiratory Exam Present: decreased breath sounds (right base), CTA bilaterally - *Routine Cardiovascular Exam Present: RRR - *Routine Abdominal Exam Present: soft, normoactive bowel sounds. Absent: tenderness - *Routine Extremities Exam Absent: cyanosis, clubbing, edema - *Routine Skin Exam Present: warm. Absent: rash - *Routine Neurological Exam Present: alert, oriented X3 Results Labs on day of discharge: Labs from last 24 hours 12/04/19 12/04/19 08:05 08:05 WBC 16.9 H D RBC 4.19 L Hgb 11.6 L Hct 37.4 MCV 89.3 MCH 27.6 MCHC 30.9 L RDW 14.0 Plt Count 400 MPV 7.7 Neut % (Auto) 72.9 Lymph % (Auto) 22.9 [place] % (Auto) 3.6 Eos % (Auto) 0.3 Baso % (Auto) 0.3 Neut # (Auto) 12.3 H Lymph # (Auto) 3.9 [place] # (Auto) 0.6 Eos # (Auto) 0.1 Baso # (Auto) 0.0 Total Counted 100 Neutrophils % (Manual) 74 Lymphocytes % (Manual) 25 Monocytes % (Manual) 1 L Platelet Estimate Normal RBC Morphology Normal Sodium 144 Potassium 3.2 L Chloride 108 H Carbon Dioxide 28 Anion Gap 11.2 BUN 13 Creatinine 0.92 Estimated Creat Clear 81 Estimated GFR 63 Est GFR ( Amer) 76 Glucose 121 H Calcium 8.3 L Preliminary micro results at discharge 12/03/19 18:10 Sputum Culture - Preliminary Sputum - Expectorated Sputum DS: Diagnosis - Discharge Diagnosis (1) Pneumonia Status: Acute (2) Shortness of breath Status: Acute (3) Cough Status: Acute (4) Chest pain Status: Acute (5) Adverse reaction to drug Status: Acute (6) Hypokalemia Status: Resolved (7) Hypertension Status: Chronic (8) History of atrial fibrillation Status: Chronic Discharge Plan - Patient Discharge Instructions ACTIVITY: Continue current activity Patient Instructions: DI for Pneumonia -- Adult, DI for Chest Pain - Follow up Plan Follow up with: Jp Cuevas MD [Primary Care Provider] - 12/10/19 11:15 am Disposition: Home, Self-M[facility] Medications: Home Medications Medication Instructions Recorded Confirmed Type hydroCHLOROthiazide [HCTZ 12.5mg 12.5 mg PO DAILY 02/02/19 12/03/19 History capsule] Aspirin 81 mg PO DAILY 09/29/19 12/03/19 History Levothyroxine Sodium [Synthroid 75 mcg PO DAILY 09/29/19 12/03/19 History 75mcg (0.075mg) tablet] Nebivolol HCl [Bystolic] 10 mg PO DAILY 09/29/19 12/03/19 History Flecainide Acetate [Tambocor 50mg 50 mg PO BID 12/03/19 12/03/19 History tablet] Glucosamine/D3/Boswellia Madison 1 each PO BID 12/03/19 12/03/19 History [Osteo Bi-Flex Tablet] Azithromycin [Azithromycin 500mg 500 mg PO DAILY #2 tab 12/04/19 Rx Tab] Losartan Potassium [Cozaar 25mg 25 mg PO DAILY #30 tab 12/04/19 Rx Tablets] Prescriptions/Medication Reconciliation: New Azithromycin [Azithromycin 500mg Tab] 500 mg PO DAILY #2 tab Losartan Potassium [Cozaar 25mg Tablets] 25 mg PO DAILY #30 tab Continued hydroCHLOROthiazide [HCTZ 12.5mg capsule] 12.5 mg PO DAILY Nebivolol HCl [Bystolic] 10 mg PO DAILY Levothyroxine Sodium [Synthroid 75mcg (0.075mg) tablet] 75 mcg PO DAILY Aspirin 81 mg PO DAILY Flecainide Acetate [Tambocor 50mg tablet] 50 mg PO BID Glucosamine/D3/Boswellia Madison [Osteo Bi-Flex Tablet] 1 each PO BID Discontinued Oseltamivir Phosphate 75 mg PO DAILY Ramipril 10 mg PO DAILY - Problem Reconciliation Problems Reviewed?: Yes
--- NOTE | 2019-12-04 15:32 | Electrocardiograph Report ---
APPROVED REPORT Exam: Resting ECG HR:74 bpm ECG Measurements Heart Rate 74 AXES MS 198 P 55 QRSd 84 QRS 22 QT 364 T32 QTc 404 <Conclusion> Normal sinus rhythm Low voltage QRS Late r wave progression Abnormal ECG Electronically signed by : Librado Flynn, 12/04/2019 15:32:28
--- NOTE | 2019-12-04 15:35 | Cardiology Report ---
APPROVED REPORT EXAM: Comprehensive 2D, Doppler, and color-flow Echocardiogram Churn Operator: Pamela Helms RT(R) Ht: 5 ft 5 in Wt: 160lbs BSA: 1.80 BP: 167/82 mmHg Indications: CP, Allergic reaction to tamiflu, sob, hx of AFIB, HTN 2D Dimensions LVOT 1.75 cm (M/F) 1.5-2.5 M-Mode Dimensions RVDd 2.73 cm (0.9-2.6)LVDd 4.38 cm (3.5-5.7) LVDs 2.94 cm (3.5-5.7)IVSd 0.68 cm (0.6-1.1) PWd 0.86 cm (0.6-1.1)EF (Teich) 61.60% FS 32.90% EDV (Teich) 86.80 mL ESV (Teich) 33.30 mL LV Diastology E/A Ratio 1.08 Mitral Valve MV A Velocity 103.00 (40-130 cm/s) Left Ventricle Left atrium is mildly enlarged, left ventricle is normal size, left ventricle wall thickness is upper limit of the normal, there is preserved left ventricular systolic function, visually estimated ejection fraction 55% with no regional wall motion abnormality, diastolic parameters are within normal range. Right Ventricle Right atrium is normal size, right ventricle is mildly enlarged with normal contractility. Aortic Valve Aortic valve is grossly normal, there is no aortic stenosis aortic insufficiency. Mitral Valve Mitral valve is grossly normal, there is mild mitral regurgitation. Tricuspid Valve Tricuspid valve is grossly normal, there is mild tricuspid regurgitation, calculated right ventricular systolic pressure is 34 mmHg. Pulmonic Valve Pulmonic valve is poorly visualized. Great Vessels Aortic root is normal size. Pericardium No significant pericardial effusion noted. Conclusion 1. Mildly enlarged left atrium, normal left ventricular size, visually estimated ejection fraction 55% with no regional wall motion abnormality, diastolic parameters are within normal range. 2. Mildly enlarged right ventricle with normal contractility. 3. Mild mitral and tricuspid regurgitation. Calculated right ventricular systolic pressure is 34 mmHg. 4. No significant pericardial effusion noted. Electronically signed by : Jong More, 12/04/2019 15:35:14
== END 2019-12-04 10:16 | disposition home or self-care (01) ==
LOC: 2ND 21:16 → ER 21:16 → 2ND 12-03 00:18
PROVIDERS: ADMIT Family Medicine; ATTEND Family Medicine
CPT/HCPCS: 36415; 71020; 71046; 80048; 80061; 81001; 84484; 85007; 85025; 87070; 87205; 87275; 87276; 93005; 93306; 96365; 96375; 99284; G0378; J0456

== ENCOUNTER → 2019-12-09 12:15 | Outpatient (CLI) | payer OTHER, SELFPAY ==
--- NOTE | 2019-12-09 12:28 | XR_ITS ---
PROCEDURE: XR CHEST 2V CLINICAL HISTORY: PNEUMONIA Right lower lobe pneumonia COMPARISON: XR CHEST 2V from 12/02/2019 FINDINGS: The cardiomediastinal silhouette and pulmonary vascularity are within normal limits. Previously noted increased markings in the right lower lobe have. There remains some minimal atelectatic change in the right CP angle. No acute bony abnormalities. IMPRESSION: Improved right basilar infiltrate Dictated by: Monty Holder MD 12/09/2019 14:04 Electronically signed by Monty Holder MD in [place] 12/09/2019 14:04
== END ==
LOC: RAD 12:17
PROVIDERS: PCP Family Medicine; Visit Provider Family Medicine
DX: J18.9 Pneumonia, unspecified organism (principal)
CPT/HCPCS: 71046

== ENCOUNTER → 2019-12-18 12:52 | Outpatient (CLI) | payer OTHER, SELFPAY ==
--- NOTE | 2019-12-18 12:53 | US_ITS ---
PROCEDURE: US THYROID CLINICAL INDICATION: GOITER Neck swelling, patient on thyroid medications COMPARISON: THY US THYROID from 11/16/2014 FINDINGS: Right lobe: 1.0 x 2.8 x 1.1 centimeters Left lobe: 0.7 x 2.8 x 0.9 centimeters Isthmus: 4.1 millimeters Additional findings: There is diffuse heterogeneity of the thyroid echotexture. Nodule in the inferior left thyroid lobe 5.8 x 7.4 x 5.9 millimeters is noted and a 2nd nodule adjacent to it 6.9 x 5. 4 x 5.4 millimeters is noted. These are predominantly hyper echoic with some peripheral and internal increased color Doppler blood flow. IMPRESSION: Heterogeneous thyroid with 2 separate subcentimeter nodules left thyroid lobe. Dictated by: Zhou Espinoza 12/18/2019 13:55 Electronically signed by Zhou Espinoza in [place] 12/18/2019 13:55
== END ==
LOC: RAD 12:52
PROVIDERS: PCP Family Medicine; Visit Provider Family Medicine
DX: E04.9 Nontoxic goiter, unspecified (principal)
CPT/HCPCS: 76536

== ENCOUNTER 2020-04-25 15:23 | Emergency (ER) | payer OTHER, SELFPAY ==
[2020-04-25 15:24] VITALS: BP 154/85; PULSE 78; RESP 19; TEMP 36.8; O2SAT 98; BMI 26.6
--- NOTE | 2020-04-25 16:36 | HMH.EDUTC ---
[facility] [place] Disposition Clinical Impression: Lower extremity pain Qualifiers: Laterality: left Qualified Code(s): M79.605 - Pain in left leg Disposition: Home, Self-Care Condition on Discharge: Good Instructions: Phlebitis/DVT (Alternative Therapy), Deep Vein Thrombosis, DI for Deep Vein Thrombosis Additional Instructions: You was given outpatient order for Venous Doppler they will call you in the morning with what time to be here to have study done. Make sure that you bring the order with your *Follow up with your family doctor for further treatment and evaluation of problem Return if needed Straight to ER if any life threatening symptoms Referrals: Jp Nguyen MD [Primary Care Provider] - As needed Time of Disposition: 16:56 Medical Decision Making - Ashutosh Inquiry Pt receiving controlled substance: No Ashutosh was queried for this patient: No Vital Signs: 04/25/20 15:24 04/25/20 17:15 Temperature 98.2 F 98.2 F Temperature Source Oral Oral Pulse Rate 78 Pulse Rate [Radial] 78 Respiratory Rate 19 19 Blood Pressure 154/85 H Blood Pressure [Right Arm] 154/85 H Blood Pressure Mean [Right Arm] 108 Blood Pressure Source Automatic Cuff Blood Pressure Source [Right Arm] Automatic Cuff Blood Pressure Position Sitting Blood Pressure Position [Right Arm] Sitting 02 Sat by Pulse Oximetry 98 Oxygen Delivery Method Room Air Room Air Orders (Tests/Meds): ED MEDICATIONS Discontinued Medications Generic Name Dose Route Start Last Admin Trade Name Freq PRN Reason Stop Dose Admin Enoxaparin Sodium 110 mg 04/25/20 16:52 04/25/20 17:06 Lovenox 120mg/0.8ml Syringe SQ 04/25/20 16:53 110 mg ONCE ONE Administration - Physician Consults Physician Consulted: Dr Buck Covering for Dr Nguyen Time: 16:44 Reason -: Other Comment/Response: Spoke with Dr Buck and informed him of patient complaint and findings Agreed and advised give her 1.5mg/kg of Lovenox x 1 dose and order for venous doppler that can be completed in the morning with results called to Dr Nguyen - Reevaluation(s) Time: 16:57 Reevaluation #1: Lovenox dosed per pharmacy per Dr Buck request for 1.5mg/kg x 1 dose [facility] [place] HPI - General Stated complaint: possible blood clot/swelling L leg Time Seen by Provider: 04/25/20 16:37 Mode of Arrival: Ambulatory Source of Information: Patient Limitations: No Limitations Description of Symptoms (Recalled from Triage Doc. by RN): possible blood clot in left leg. feels drunk HEENT Symptoms (Recalled from RN notes): No Resp Symptoms (Recalled from RN notes): No Skin Symptoms (Recalled from RN notes): Yes MS Symptoms (Recalled from RN notes): Yes Functional Status (Recalled from RN notes): wnl - History of Present Illness Provider Complaint: Patient states that about 2 hours ago she noticed a bruised like area on her left lower leg area States that daughter looked at it and told her that she needs to get it checked for blood clot States that she came in to get it checked States that she has been getting adjusted to her new medication that her doctor changed her too and at times it makes her feel a little drunk. - Related Data Home Medications Medication Instructions Recorded Confirmed hydroCHLOROthiazide [HCTZ 12.5mg 12.5 mg PO DAILY 02/02/19 12/03/19 capsule] Aspirin 81 mg PO DAILY 09/29/19 12/03/19 Levothyroxine Sodium [Synthroid 75 mcg PO DAILY 09/29/19 12/03/19 75mcg (0.075mg) tablet] Nebivolol HCl [Bystolic] 10 mg PO DAILY 09/29/19 12/03/19 Flecainide Acetate [Tambocor 50mg 50 mg PO BID 12/03/19 12/03/19 tablet] Glucosamine/D3/Boswellia [place] 1 each PO BID 12/03/19 12/03/19 [Osteo Bi-Flex Tablet] Previous Rx's Medication Instructions Recorded Azithromycin [Azithromycin 500mg 500 mg PO DAILY #2 tab 12/04/19 Tab] Losartan Potassium [Cozaar 25mg 25 mg PO DAILY #30 tab 12/04/19 Tablets] Allergies Allergy/AdvReac Type Severity Reaction Stat
[2020-04-25 17:15] VITALS: BP 154/85; PULSE 78; RESP 19; TEMP 36.8; O2SAT 98
== END 2020-04-25 17:16 | disposition home or self-care (01) ==
PROVIDERS: Emergency Provider Nurse Practitioner; PCP Family Medicine
DX: M79.662 Pain in left lower leg (principal); I48.20 Chronic atrial fibrillation, unspecified; E03.9 Hypothyroidism, unspecified; I10 Essential (primary) hypertension; Z88.0 Allergy status to penicillin; Z90.09 Acquired absence of other part of head and neck; Z79.899 Other long term (current) drug therapy
CPT/HCPCS: 96372; 99201

== ENCOUNTER → 2020-04-26 08:44 | Outpatient (CLI) | payer OTHER, SELFPAY ==
--- NOTE | 2020-04-26 | CA_ITS ---
APPROVED REPORT Left Lower Extremity Venous Study for DVT. 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 Indications Lower Extremity Pain: Medications Aspirin 81 MG Vein Imaging CFV (L): compressive, spontaneous, phasic, augmentation SFJ (L): compressive, spontaneous, phasic, augmentation FEM (L): compressive, spontaneous, phasic, augmentation POP (L): compressive, spontaneous, phasic, augmentation DFV (L): compressive, spontaneous, phasic, augmentation PTV (L): compressive, spontaneous, phasic, augmentation GSV (L): compressive, spontaneous, phasic, augmentation SSV (L): compressive, spontaneous, phasic, augmentation Peroneals (L):compressive, spontaneous, phasic, augmentation GAS (L): compressive, spontaneous, phasic, augmentation Findings LLE negative for DVT/SVT. Vessels fully compressible. No reflux noted. Conclusion No evidence of DVT or superficial thrombophlebitis in the veins scanned of the left lower extremity. Electronically signed by : Monty Holder MD 04/26/2020 17:06:38
== END ==
LOC: RT 08:49
PROVIDERS: PCP Family Medicine; Visit Provider Nurse Practitioner
DX: M79.605 Pain in left leg (principal)
CPT/HCPCS: 93971

== ENCOUNTER → 2020-10-25 13:49 | Outpatient (CLI) | payer OTHER, SELFPAY | LOC: RT 13:51 | PROVIDERS: PCP Family Medicine; Visit Provider Family Medicine | DX: I47.1 Supraventricular tachycardia (principal) | CPT/HCPCS: 93225; 93226 ==

== ENCOUNTER → 2021-04-25 11:26 | Outpatient (CLI) | payer BC, SELFPAY | PROVIDERS: Visit Provider Surgery | DX: Z01.812 Encounter for preprocedural laboratory examination (principal); Z11.52 Encounter for screening for COVID-19; Z12.11 Encounter for screening for malignant neoplasm of colon; Z86.010 Personal history of colon polyps | CPT/HCPCS: U0003 ==

== ENCOUNTER 2021-04-27 07:22 | Day surgery (SDC) | payer BC, SELFPAY ==
[2021-04-21 13:01] VITALS: BMI 25.7
[2021-04-27 07:16] VITALS: BP 158/65; PULSE 74; RESP 18; TEMP 36.3; O2SAT 98
[2021-04-27 07:33] VITALS: O2SAT 98
--- NOTE | 2021-04-27 07:46 | P.PN_ITS ---
[facility] Anesthesia Checklist - Patient Identification Patient Identification: Arm Band - Structural Data Admitted From: Home Planned Operative Procedure/s: colonoscopy Consent for Planned Operative Procedure(s) Verified: Yes Verified Documents: Surgical Consent, History and Physical - NPO Status Verified Time NPO: 00:00 - Additional verifications Anesthesia Reactions: No Hx Blood Transfusions: No Blood Transfusion Reaction: No - Airway Assessment C-Spine Mobility Assessed: Yes (mp2) TMJ Mobility Assessed: Yes Dentition: Good Dentition - Neurological Assessment Level of Consciousness: Awake, Alert - Anesthesia Plan Anesthesia Risk discussed: Yes Anesthesia Plan: Verified ASA Class: III Anesthesia Type: MAC [facility] History I have reviewed the patient's past medical history: Yes Medical History: Reports:: Atrial Fibrillation, Hypertension Denies:: Cancer, Diabetes Mellitus Type 1, Diabetes Mellitus Type 2, Internal Pacemaker, MRSA, Seizures *Have you ever received a pneumonia vaccine?: Yes *Have you received a flu vaccine this season?: No Other Medical History: Reports: Hypothyroidism, Other. Denies: Blood Transfusion Reaction Anesthesia experience/problems:: nac Laterality Cases: Right: Other, Bilateral: Tonsillectomy Other Surgeries: Yes: Colonoscopy, Tubal Ligation, Other (RIGHT SHOULDER REPAIR). No: Pacemaker Amputation: No Fractures: Yes (SHOULDERS AND BACK) - *Social History Last grade of school completed: High school graduate Smoking Status: Never smoker Alcohol Intake: never Substance Use Type: other *Occupational Status:: other Housing: house Household Members: spouse *Travel in the last 8 weeks: None Family Hx:: Cancer, Coronary Artery Disease, Diabetes, Thyroid Disorder
[2021-04-27 08:06] VITALS: BP 80/40; PULSE 60; RESP 18; TEMP 36.8; O2SAT 94
--- NOTE | 2021-04-27 08:07 | HMH.SCOPE ---
- Procedure: Date: 04/27/21 Patient Date of :: 1960 Procedure Performed:: Total colonoscopy to terminal ileum with polypectomy by snare and biopsy forceps Indications:: Patient presents for follow-up colonoscopy. I had performed colonoscopy on her in 2007 and she had a tubular adenoma in the descending colon. Follow-up colonoscopy in 2013 revealed no evidence of any polyps but she did have a suboptimal preparation and 5-year follow-up colonoscopy was recommended. There is a family history and her grandmother of colon cancer. Colonoscopy performed on 09/30/2019 revealed approximately a 10 mm polyp at the hepatic flexure which was removed with hot snare and residual polyp removed with cold biopsy forceps. This returned consistent with sessile serrated adenoma. This area was marked with Rin ink. Given the 10 mm sessile serrated adenoma near the hepatic flexure as well as the family history presumed of colon cancer I would advocate a follow-up colonoscopy in approximately 18 months. Patient does have a history of atrial fibrillation apparently. I have cared for her as well for diverticulosis. Performing Provider:: Dillon Urena MD Referring Provider:: Heath Nguyen MD Sedation:: MAC sedation Procedure:: Patient was taken to endoscopy procedure room. She was positioned in a lateral decubitus position. Adequate intravenous sedation was achieved with anesthesia titration of propofol. Variable stiffness Olympus colonoscope was inserted via the anus and advanced to the cecum with some minor difficulty due to some floppiness and redundancy of the sigmoid colon. Colonic preparation was good and visualization was good. Ileocecal valve and appendiceal orifice were clearly identified. Colon scope was advanced into the terminal ileum which appeared grossly normal. Colonoscope was withdrawn through the colon with careful surveillance. At the region of the previous tattooing with Rin ink there was a small adenomatous appearing polyp removed with cold cutting snare. In the transverse colon there was a diminutive irregularity which was removed with biopsy forceps, possible lymphoid aggregate versus polyp. Rectosigmoid region revealed a couple of hyperplastic appearing polyps removed with cold biopsy forceps. Colonoscope was withdrawn. Of note, she did have some degree of pandiverticulosis. Findings:: Mild pandiverticulosis Adenomatous polyp near the hepatic flexure Possible transverse colon polyp, probable lymphoid aggregate Hyperplastic appearing rectosigmoid polyps Recommendations:: Likely repeat colonoscopy 3 years Complications:: None immediately apparent Estimated blood obtained (mL): 2
[2021-04-27 08:16] VITALS: BP 101/67; PULSE 69; RESP 18; O2SAT 94
[2021-04-27 08:26] VITALS: BP 106/88; PULSE 67; RESP 18; O2SAT 99
[2021-04-27 08:36] VITALS: BP 128/72; PULSE 64; RESP 18; O2SAT 99
== END 2021-04-27 08:38 | disposition home or self-care (01) ==
PROVIDERS: PCP Family Medicine; Visit Provider Surgery
PROC: 0DJD8ZZ Inspection of Lower Intestinal Tract, Via Natural or Artificial Opening Endoscopic (ICD-10-PCS; CPT 45385; principal; 2021-04-27 07:30)
DX: Z12.11 Encounter for screening for malignant neoplasm of colon (principal); Z86.010 Personal history of colon polyps; K57.30 Diverticulosis of large intestine without perforation or abscess without bleeding; K63.5 Polyp of colon; I48.91 Unspecified atrial fibrillation; I10 Essential (primary) hypertension; E03.9 Hypothyroidism, unspecified; Z80.9 Family history of malignant neoplasm, unspecified; Z82.49 Family history of ischemic heart disease and other diseases of the circulatory system; Z83.3 Family history of diabetes mellitus; Z83.49 Family history of other endocrine, nutritional and metabolic diseases; Z88.0 Allergy status to penicillin
CPT/HCPCS: 45385; 45380

== ENCOUNTER → 2021-07-26 12:12 | Outpatient (CLI) | payer BC, SELFPAY | LOC: SL 12:13 | PROVIDERS: PCP Family Medicine; Visit Provider Family Medicine | DX: G47.33 Obstructive sleep apnea (adult) (pediatric) (principal); I10 Essential (primary) hypertension; R06.83 Snoring | CPT/HCPCS: G0399 ==

== ENCOUNTER → 2021-09-28 11:37 | Outpatient (CLI) | payer OTHER, SELFPAY ==
[2021-09-28 12:10] LABS: Adenovirus,PCR Not Detected (NotDetected); Bordetella Pertussis Not Detected (NotDetected); Chlamydophila Pneumoniae, PCR Not Detected (NotDetected); Coronavirus 19, PCR Not Detected (NotDetected); Coronavirus 229E Not Detected (NotDetected); Coronavirus NL63 Not Detected (NotDetected); Coronavirus OC43 Not Detected (NotDetected); Coronovirus HKU1,PCR Not Detected (NotDetected); Human Metapneumovirus Not Detected (NotDetected); Influenza A, PCR Not Detected (NotDetected); Influenza AH1, 2009 Not Detected (NotDetected); Influenza AH1, PCR Not Detected (NotDetected); Influenza AH3,PCR Not Detected (NotDetected); Influenza B, PCR Not Detected (NotDetected); Mycoplasma Pneumoniae, PCR Not Detected (NotDetected); Parainfluenza 1, PCR Not Detected (NotDetected); Parainfluenza 2, PCR Not Detected (NotDetected); Parainfluenza 3, PCR Not Detected (NotDetected); Parainfluenza 4, PCR Not Detected (NotDetected); Respiratory Syncytial Virus Not Detected (NotDetected)
[2021-09-28 12:29] LABS: Basophils # 0.1 K/mm3 (0-0.2); Basophils % 0.6 % (0.1-2.0); Eosinophils # 0.2 K/mm3 (0.0-0.4); Eosinophils % 1.9 % (0.1-12.0); Hematocrit 36.9 % (37.0-47.0); Lymphocytes # 2.4 K/mm3 (0.7-4.5); Lymphocytes % 22.8 % (10-50); Mean Corpuscular HGB Conc 32.6 g/dL (31.8-35.4); Mean Corpuscular Hemoglobin 28.7 pg (27.0-31.2); Mean Corpuscular Volume 88.1 fl (81-99); Mean Platelet Volume 8.1 fl (7.4-10.4); Monocytes # 0.9 K/mm3 (0.1-1.0); Monocytes % 8.5 % (1.7-9.3); Neutrophils # 7.1 K/mm3 (1.8-7.8); Neutrophils % 66.3 % (37.0-80.0); Platelet Count 468 K/mm3 (142-424); Red Blood Count 4.19 M/mm3 (4.20-5.40); Red Cell Distribution Width 14.3 % (11.5-17.5); White Blood Count 10.7 K/mm3 (4.8-10.8)
[2021-09-28 16:45] LABS: Rhinovirus/Enterovirus Detected (NotDetected)
== END ==
PROVIDERS: PCP Family Medicine; Visit Provider Physician Assistant
DX: Z20.822 Contact with and (suspected) exposure to COVID-19 (principal); B34.1 Enterovirus infection, unspecified
CPT/HCPCS: 36415; 85025; 87581; 87632; 87798; C9803; U0003; U0005

== ENCOUNTER → 2022-09-06 12:36 | Outpatient (CLI) | payer OTHER, SELFPAY ==
--- NOTE | 2022-09-06 12:45 | XR_ITS ---
FINAL REPORT CLINICAL HISTORY: COUGH/CONGESTION COMPARISON: 12/09/2019 FINDINGS: A single view of the chest was obtained. The heart is normal in size. The mediastinum is unremarkable. The lungs are clear. There is no pleural effusion. There is no pneumothorax. There is no acute osseous abnormality. A right shoulder prosthesis is noted. IMPRESSION: No acute cardiopulmonary process. Reviewed, Interpreted and Dictated by Tawanda Banerjee MD Transcribed by Breann Foy Authenticated and [facility]
[2022-09-06 13:04] LABS: Adenovirus,PCR Not Detected (NotDetected); Bordetella Pertussis Not Detected (NotDetected); Chlamydophila Pneumoniae, PCR Not Detected (NotDetected); Coronavirus 19, PCR Not Detected (NotDetected); Coronavirus 229E Not Detected (NotDetected); Coronavirus NL63 Not Detected (NotDetected); Coronavirus OC43 Not Detected (NotDetected); Coronovirus HKU1,PCR Not Detected (NotDetected); Human Metapneumovirus Not Detected (NotDetected); Influenza A, PCR Not Detected (NotDetected); Influenza AH1, 2009 Not Detected (NotDetected); Influenza AH1, PCR Not Detected (NotDetected); Influenza AH3,PCR Not Detected (NotDetected); Influenza B, PCR Not Detected (NotDetected); Mycoplasma Pneumoniae, PCR Not Detected (NotDetected); Parainfluenza 1, PCR Not Detected (NotDetected); Parainfluenza 2, PCR Not Detected (NotDetected); Parainfluenza 3, PCR Not Detected (NotDetected); Parainfluenza 4, PCR Not Detected (NotDetected); Respiratory Syncytial Virus Not Detected (NotDetected); Rhinovirus/Enterovirus Not Detected (NotDetected)
[2022-09-06 13:12] LABS: Basophils # 0.1 K/mm3 (0-0.2); Basophils % 0.7 % (0.1-2.0); Eosinophils # 0.5 K/mm3 (0.0-0.4); Eosinophils % 4.4 % (0.1-12.0); Hematocrit 40.1 % (37.0-47.0); Hemoglobin 12.6 g/dL (12.2-16.2); Lymphocytes # 2.3 K/mm3 (0.7-4.5); Lymphocytes % 21.1 % (10-50); Mean Corpuscular HGB Conc 31.4 g/dL (31.8-35.4); Mean Corpuscular Hemoglobin 29.1 pg (27.0-31.2); Mean Corpuscular Volume 92.6 fl (81-99); Mean Platelet Volume 7.8 fl (7.4-10.4); Monocytes # 0.6 K/mm3 (0.1-1.0); Monocytes % 5.1 % (1.7-9.3); Neutrophils # 7.6 K/mm3 (1.8-7.8); Neutrophils % 68.8 % (37.0-80.0); Platelet Count 428 K/mm3 (142-424); Red Blood Count 4.33 M/mm3 (4.20-5.40); Red Cell Distribution Width 14.5 % (11.5-17.5); White Blood Count 11.1 K/mm3 (4.8-10.8)
== END ==
PROVIDERS: PCP Family Medicine; Visit Provider Family Medicine
DX: J40 Bronchitis, not specified as acute or chronic (principal)
CPT/HCPCS: 36415; 71045; 85025; 87581; 87632; 87798; C9803; U0003; U0005

== ENCOUNTER → 2022-11-29 10:20 | Outpatient (CLI) | payer OTHER, SELFPAY ==
--- NOTE | 2022-11-29 10:24 | CA_ITS ---
FINAL REPORT TECHNIQUE: Color Doppler, duplex Doppler and compression sonography of the right lower extremity venous system was performed. CLINICAL HISTORY: HTN, HLD. Right leg is sore and tight x couple of weeks. Pain is in the posterior right calf that is worse at night. She denies trauma. FINDINGS: There is no evidence of deep venous thrombosis from the level of the groin to the calf. The veins are patent and compressible. There is a fluid collection measuring 5.7 cm in length. It is uncertain if this represents a ganglion cyst, popliteal cyst, or other fluid collection. IMPRESSION: No evidence of deep venous thrombosis right lower extremity. Fluid collection as detailed above. Reviewed, Interpreted and Dictated by Dillon Castellano III, MD Transcribed by Violetta Levine Authenticated and [facility]
== END ==
LOC: RT 10:21
PROVIDERS: PCP Family Medicine; Visit Provider Family Medicine
DX: M79.604 Pain in right leg (principal)
CPT/HCPCS: 93971

== ENCOUNTER → 2022-12-18 12:05 | Outpatient (CLI) | payer OTHER, SELFPAY ==
[2022-12-18 12:56] LABS: Basophils # 0.1 K/mm3 (0-0.2); Basophils % 1.2 % (0.1-2.0); Eosinophils # 0.3 K/mm3 (0.0-0.4); Eosinophils % 4.1 % (0.1-12.0); Hematocrit 41.4 % (37.0-47.0); Hemoglobin 13.3 g/dL (12.2-16.2); Lymphocytes % 23.9 % (10-50); Mean Corpuscular HGB Conc 32.2 g/dL (31.8-35.4); Mean Corpuscular Hemoglobin 29.2 pg (27.0-31.2); Mean Corpuscular Volume 90.6 fl (81-99); Mean Platelet Volume 7.5 fl (7.4-10.4); Monocytes # 0.6 K/mm3 (0.1-1.0); Monocytes % 6.7 % (1.7-9.3); Neutrophils # 5.4 K/mm3 (1.8-7.8); Neutrophils % 64.1 % (37.0-80.0); Platelet Count 427 K/mm3 (142-424); Red Blood Count 4.56 M/mm3 (4.20-5.40); Red Cell Distribution Width 14.6 % (11.5-17.5); White Blood Count 8.4 K/mm3 (4.8-10.8)
[2022-12-18 13:26] LABS: Chloride 104 mmol/L (98-107); Potassium 4.4 mmoL/L (3.5-5.1); Sodium 142 mmol/L (136-145)
[2022-12-18 13:29] LABS: Anion Gap 9.4 mEq/L (5-15); Blood Urea Nitrogen 13 mg/dl (7-17); Calcium 9.4 mg/dl (8.4-10.2); Carbon Dioxide 33 mmol/L (22.0-30.0); Estimated Glomerular Filt Rate 73 ml/min (>60); GFR (African American) 88 ML/MIN (>60); Glucose 87 mg/dl (74-100); Magnesium 2.2 mg/dl (1.6-2.3)
[2022-12-18 14:01] LABS: Thyroid Stimulating Hormone 1.88 uIU/mL (0.465-4.68)
== END ==
PROVIDERS: PCP Family Medicine; Visit Provider Nurse Practitioner
DX: I48.0 Paroxysmal atrial fibrillation (principal)
CPT/HCPCS: 36415; 80048; 83735; 84443; 85025

== ENCOUNTER → 2022-12-27 11:05 | Outpatient (CLI) | payer OTHER, SELFPAY ==
--- NOTE | 2022-12-27 | ECG_ITS ---
APPROVED REPORT Exam: Resting ECG HR:64 bpm ECG Measurements Heart Rate 64 AXES FL 199 P 66 QRSd 111 QRS 65 QT 376 T 66 QTc 385 Conclusion SINUS RHYTHM LOW QRS VOLTAGE IN PRECORDIAL LEADS [QRS DEFLECTION < 1.0 mV IN CHEST LEADS] INCOMPLETE RIGHT BUNDLE BRANCH BLOCK [90+ ms QRS DURATION, TERMINAL R IN V1/V2, 40+ ms S IN I/aVL/V4/V5/V6] BORDERLINE ECG UNCONFIRMED REPORT Electronically signed by : Librado Flynn MD 12/27/2022 20:18:56
== END ==
PROVIDERS: PCP Family Medicine; Visit Provider Nurse Practitioner
DX: R00.2 Palpitations (principal)
CPT/HCPCS: 93005

== ENCOUNTER → 2023-01-05 08:41 | Outpatient (CLI) | payer OTHER, SELFPAY ==
--- NOTE | 2023-01-05 08:46 | XR_ITS ---
FINAL REPORT CLINICAL HISTORY: MELGOZA CYST COMPARISON: None FINDINGS: Three views of the right knee reveal no evidence of fracture or dislocation. The bony alignment is normal. There is fktv-cy-tfjoyefk degenerative change. There is lateral compartment narrowing. There is small joint effusion. No localized soft tissue abnormality is identified. IMPRESSION: Degenerative change and small joint effusion with no acute bony abnormality. Reviewed, Interpreted and Dictated by Dillon Castellano III, MD Transcribed by Dayna Matthew Authenticated and [facility]
== END ==
LOC: RAD 08:43
PROVIDERS: PCP Family Medicine; Visit Provider Orthopaedic Surgery
DX: M25.561 Pain in right knee (principal)
CPT/HCPCS: 73562

== ENCOUNTER 2023-01-05 09:58 | Outpatient (RCR) | payer OTHER, SELFPAY | END 2023-01-05 10:57 | disposition home or self-care (01) | LOC: PT 09:58 | PROVIDERS: Visit Provider Orthopaedic Surgery | DX: M71.21 Synovial cyst of popliteal space [Baker], right knee (principal) | CPT/HCPCS: 97760 ==

== ENCOUNTER → 2023-03-01 08:52 | Outpatient (CLI) | payer OTHER, SELFPAY ==
[2023-03-01 11:14] LABS: Folate > 20.00 ng/mL; Vitamin B12 > 1000 pg/mL (239-931)
== END ==
PROVIDERS: PCP Family Medicine; Visit Provider Specialist
DX: R53.1 Weakness (principal); E83.10 Disorder of iron metabolism, unspecified
CPT/HCPCS: 36415; 82607; 82746; 84443

== ENCOUNTER → 2023-03-07 07:49 | Outpatient (CLI) | payer OTHER, SELFPAY ==
--- NOTE | 2023-03-07 07:49 | MR_ITS ---
FINAL REPORT TECHNIQUE: Multiplanar MR without contrast CLINICAL HISTORY: Worsening of headache, migraine headaches FINDINGS: Diffusion sequences show no signal abnormality to indicate acute infarct. There are a few scattered punctate white matter signal changes in both hemispheres, predominantly subcortical which are nonspecific but of doubtful clinical significance. No mass, hemorrhage or edema is seen. Ventricles are normal. Major vascular flow voids are intact. IMPRESSION: No mass or acute process. Minimal white matter signal changes of doubtful significance. Reviewed, Interpreted and Dictated by Jp Sheriff MD Transcribed by Violetta Levine Authenticated and . [facility]
== END ==
LOC: RAD 07:49
PROVIDERS: PCP Family Medicine; Visit Provider Specialist
DX: G43.709 Chronic migraine without aura, not intractable, without status migrainosus (principal)
CPT/HCPCS: 70551

== ENCOUNTER → 2023-03-09 13:07 | Outpatient (CLI) | payer OTHER, SELFPAY | PROVIDERS: PCP Family Medicine; Visit Provider Specialist | DX: G47.33 Obstructive sleep apnea (adult) (pediatric) (principal) | CPT/HCPCS: 94762 ==

== ENCOUNTER → 2023-04-09 10:16 | Outpatient (CLI) | payer OTHER, SELFPAY ==
[2023-04-09 12:28] LABS: Ferritin 11.2 ng/ml (11.1-264)
== END ==
PROVIDERS: PCP Family Medicine; Visit Provider Specialist
DX: E83.10 Disorder of iron metabolism, unspecified (principal)
CPT/HCPCS: 36415; 82728

== ENCOUNTER → 2023-05-16 11:37 | Outpatient (CLI) | payer OTHER, SELFPAY ==
[2023-05-16 12:57] LABS: Thyroid Stimulating Hormone 1.05 uIU/mL (0.465-4.68)
[2023-05-17 10:13] LABS: Triiodothyronine (T3) Free 2.7 pg/mL (2.0-4.4)
== END ==
PROVIDERS: PCP Family Medicine; Visit Provider Specialist
DX: R79.89 Other specified abnormal findings of blood chemistry (principal); E03.9 Hypothyroidism, unspecified
CPT/HCPCS: 36415; 84439; 84443; 84481

== ENCOUNTER 2023-07-25 08:30 | Outpatient (RCR) | payer OTHER, SELFPAY | END 2023-07-25 08:35 | disposition home or self-care (01) | LOC: PT 08:30 | PROVIDERS: PCP Family Medicine; Visit Provider Orthopaedic Surgery Sports Medicine | DX: M54.2 Cervicalgia (principal); M25.511 Pain in right shoulder; Z96.611 Presence of right artificial shoulder joint | CPT/HCPCS: 97010; 97014; 97110; 97140; 97163; 97164; G0283 ==

== ENCOUNTER 2023-09-13 14:00 | Outpatient (RCR) | payer OTHER, SELFPAY | END 2023-09-13 15:00 | disposition home or self-care (01) | LOC: PT 14:00 | PROVIDERS: PCP Family Medicine; Visit Provider Orthopaedic Surgery | DX: M25.561 Pain in right knee (principal); Z96.651 Presence of right artificial knee joint | CPT/HCPCS: 97010; 97014; 97016; 97110; 97140; 97163; 97164; 97530; 97535; G0283 ==

== ENCOUNTER 2024-01-08 15:24 | Outpatient (CLI) | payer OTHER, SELFPAY ==
[2024-01-08 16:46] LABS: Ferritin 51.3 ng/ml (11.1-264)
== END 2024-01-08 23:59 ==
LOC: LAB 15:25
PROVIDERS: PCP Family Medicine; Visit Provider Specialist
DX: E83.10 Disorder of iron metabolism, unspecified (principal)
CPT/HCPCS: 36415; 82728

== ENCOUNTER 2024-06-20 07:18 | Day surgery (SDC) | payer OTHER, SELFPAY ==
[2024-06-19 09:39] VITALS: BMI 29.7
[2024-06-20] VITALS (7 sets, daily range): BP systolic 80–122; BP diastolic 48–66; PULSE 54–69; RESP 16–18; TEMP 36.2; O2SAT 92–100
--- NOTE | 2024-06-20 07:40 | P.PCN_ITS ---
Procedure: Date: 06/20/24 Patient Date of :: 1960 Procedure Performed:: Total colonoscopy to the terminal ileum with multiple polypectomy . Indications:: Patient is a 63-year-old female who presents for colonoscopy due to family history of colon cancer in her grandmother and personal history of polyps. I performed colonoscopy on her in 2007 and she had a tubular adenoma in the descending colon. Colonoscopy 2013 revealed no evidence of any polyps but she did have a suboptimal preparation. Colonoscopy 09/30/2019 revealed a 10 mm sessile serrated adenoma at the hepatic flexure which was marked with Rin ink. Colonoscopy 04/27/2021 revealed mild pandiverticulosis, there was a hepatic flexure tubular adenoma in the region of the previous tattoo removed with cold snare. . Performing Provider:: Dillon Urena MD Referring Provider:: Heath Nguyen MD . Sedation:: MAC sedation . Procedure:: Patient history was obtained and appropriate physical examination was performed. Patient's medications and allergies were reviewed. Informed consent was obtained after explaining the benefits, alternatives, and risks of the procedure including, but not limited to, bleeding, perforation, missed lesions, and adverse reaction to anesthesia medications. Patient was transported to endoscopy procedure room. Patient was connected to monitoring devices. Throughout the procedure the patient's blood pressure, pulse, and oxygen saturations were monitored continuously. Patient identification and planned procedure were verified by the staff. Patient was positioned in lateral decubitus position. Digital anorectal exam was performed. Variable stiffness Olympus colonoscope was inserted and advanced under direct visualization to the cecum. Adequacy of the colonic preparation was noted. The colonoscope was advanced a short distance into the terminal ileum. The colonoscope was then slowly withdrawn while carefully examining the color, texture, anatomy, and integrity of the mucosoa circumferent ially. Within the rectum retroflexion was performed. Colonoscope was then withdrawn. Impression: There was some minor redundancy to the sigmoid colon which required abdominal pressure. Colonic preparation was good with good visualization achieved with irrigation and suctioning of residual particulate fluid. In the hepatic flexure at the region of previous tattoo there was a sessile several millimeter polyp removed with cold snare. In the proximal transverse colon in this region there was a tiny diminutive adenomatous appearing polyp removed with biopsy forceps. In the descending colon and in the proximal sigmoid colon there were a couple of polyps removed with a variety of technique using either cold snare or biopsy forceps. In the rectosigmoid region there was a diminutive hyperplastic appearing polyp removed with biopsy forceps. There was minor pandiverticulosis. There were minimal prolapsing internal hemorrhoids. . Findings:: Mild pandiverticulosis Polyps as noted above, 7 polyps removed. Minimal internal hemorrhoids . Recommendations:: Repeat colonoscopy 2 to 3 years pending pathology given propensity for development of polyps and family history of colon cancer Complications:: None immediately apparent Estimated blood obtained (mL): 1 Colonoscopy Component Colonoscopy Component Was a colonoscopy performed during today's procedure?: Yes Recommended follow up colonoscopy of at least 10 years?: No If no, follow up colonoscopy recommended in ___ years?: See above Reason for not recommending >/= 10 yr follow-up interval?: See above
--- NOTE | 2024-06-20 07:49 | P.PNANES_ITS ---
[facility] Disclaimer: The information contained in this section may have been updated after the patient was seen, as this information can be updated by other users. Medical History History of migraine History of hypertension History of osteoarthritis History of atrial fibrillation Personal history of other diseases of the circulatory system History of high blood pressure Surgical History History of total knee replacement History of tonsillectomy History of right shoulder replacement History of tubal ligation History of colonoscopy Family History Other Asthma COPD (chronic obstructive pulmonary disease) Family history of coronary artery disease Family history of diabetes mellitus Hypertension Social History (Updated 06/20/24 @ 07:37 by Marianne Zayas RN) Smoking Status: Never smoker alcohol intake: never substance use type: denies use and other current occupational status: unemployed Travel in the last 8 weeks: None household members: spouse housing: house 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 current occupational exposures/hazards: No caffeine: Yes [facility] Anesthesia Checklist Patient Identification Patient Identification: Arm Band and Verbal (Name & ) Structural Data Admitted From: Home Planned Operative Procedure/s: Colonoscopy Consent for Planned Operative Procedure(s) Verified: Yes Verified Documents: Surgical Consent and History and Physical NPO Status Verified Time NPO: 07:15 (sprite) Chart Verification Results Verified: CBC, BMP, ECG and Chest Xray Additional verifications Patient : No Anesthesia Reactions: No Hx Blood Transfusions: No Blood Transfusion Reaction: No Cardiovascular Assessment Heart Sounds: S1 & S2 Pulse Rhythm: Irregular Peripheral Edema: No Airway Assessment Mallampati Score:: Class II C-Spine Mobility Assessed: Yes (FROM demonstrated) TMJ Mobility Assessed: Yes Dentition: Good Dentition (Nothing loose per pt.) Neurological Assessment Level of Consciousness: Awake, Alert, Appropriate and Follows Commands Hx Seizures: No Numbness or tingling in extremities: No Anesthesia Plan Anesthesia Risk discussed: Yes Anesthesia Plan: Verified ASA Class: III Anesthesia Type: MAC
[2024-06-20] MEDS: LACTATED RINGERS 1000ML 1,000 ML 25 ML IV (07:53)
--- NOTE | 2024-06-20 08:42 | P.PNANES_ITS ---
[facility] Anesthesia Record Part I Anesthesia Record I Intake, IV Amount: 300 Hydration: Adequate Estimated blood loss (mL): 1 Urine output (mL): 0 Blood Products used (#): none Blood Pressure: 80/48 SaO2: 92 Pulse Rate: 66 Airway Patency: Patent Respiratory Rate: 16 Temperature: 97.1 F Patient is:: Drowsy and Stable Stable to PACU at:: 08:44
== END 2024-06-20 09:17 | disposition home or self-care (01) ==
PROVIDERS: PCP Family Medicine; Visit Provider Surgery
PROC: 0DJD8ZZ Inspection of Lower Intestinal Tract, Via Natural or Artificial Opening Endoscopic (ICD-10-PCS; CPT 45385; principal; 2024-06-20 08:30)
DX: Z09 Encounter for follow-up examination after completed treatment for conditions other than malignant neoplasm (principal); Z86.010 Personal history of colon polyps; Z80.0 Family history of malignant neoplasm of digestive organs; D12.7 Benign neoplasm of rectosigmoid junction; D12.4 Benign neoplasm of descending colon; D12.3 Benign neoplasm of transverse colon; D12.5 Benign neoplasm of sigmoid colon; K57.90 Diverticulosis of intestine, part unspecified, without perforation or abscess without bleeding; K64.8 Other hemorrhoids
CPT/HCPCS: 45385; 45380; J7120

== ENCOUNTER 2024-10-27 18:39 | Emergency (ER) | payer OTHER, SELFPAY ==
[2024-10-27 18:49] VITALS: BP 139/77; PULSE 82; RESP 14; TEMP 36.7; O2SAT 96; BMI 29.9
[2024-10-27 19:15] VITALS: BP 149/75; PULSE 79; O2SAT 97
--- NOTE | 2024-10-27 19:27 | CT_ITS ---
PROCEDURE INFORMATION: Exam: CTA Abdomen and Pelvis With Contrast Exam date and time: 10/27/2024 8:46 PM Age: 64 years old Clinical indication: Other: Brisk vaginal bleeding postmenopausal TECHNIQUE: Imaging protocol: Computed tomographic angiography of the abdomen and pelvis with contrast. Exam focused on the arteries. 3D rendering (Not supervised by radiologist): MIP and/or 3D reconstructed images were created by the technologist. Radiation optimization: All CT scans at this facility use at least one of these dose optimization techniques: automated exposure control; mA and/or kV adjustment per patient size (includes targeted exams where dose is matched to clinical indication); or iterative reconstruction. Contrast material: ISO 370; Contrast volume: 80 ml; Contrast route: INTRAVENOUS (IV); COMPARISON: CT HEART W CALCIUM SCORE 06/26/2019 8:15 AM FINDINGS: Diaphragm: Moderate-sized sliding-type hiatal hernia. Aorta: Mild atherosclerotic calcification of the aorta. No aneurysm or dissection. Celiac trunk and mesenteric arteries: No occlusion or significant stenosis. Renal arteries: No occlusion or significant stenosis. Accessory right renal artery noted. Right iliac arteries: No occlusion or significant stenosis. Left iliac arteries: No occlusion or significant stenosis. Liver: No mass. Gallbladder and biliary ducts: Unremarkable. No calcified stones. No ductal dilation. Pancreas: Unremarkable. No mass. No ductal dilation. Spleen: Unremarkable. No splenomegaly. Adrenal glands: Unremarkable. No mass. Kidneys and ureters: Unremarkable. No solid mass. No hydronephrosis. Stomach and bowel: Unremarkable. No obstruction. No mucosal thickening. Appendix: The appendix is visualized and appears normal. Intraperitoneal space: Unremarkable. No free air. No significant fluid collection. Lymph nodes: Unremarkable. No enlarged lymph nodes. Urinary bladder: Unremarkable. No mass. Reproductive: Unremarkable as visualized. Bones/joints: No acute fracture. Soft tissues: Unremarkable. IMPRESSION: No acute abnormality. Chronic findings as noted.
[2024-10-27 19:47] LABS: Basophils # 0.1 K/mm3 (0-0.2); Basophils % 0.4 % (0.1-2.0); Eosinophils # 0.3 K/mm3 (0.0-0.4); Eosinophils % 2.6 % (0.1-12.0); Hematocrit 40.4 % (37.0-47.0); Hemoglobin 13.1 g/dL (12.2-16.2); Lymphocytes # 2.1 K/mm3 (0.7-4.5); Mean Corpuscular HGB Conc 32.4 g/dL (31.8-35.4); Mean Corpuscular Hemoglobin 29.2 pg (27.0-31.2); Mean Corpuscular Volume 90.2 fl (81-99); Mean Platelet Volume 9.6 fl (7.4-10.4); Monocytes # 0.8 K/mm3 (0.1-1.0); Monocytes % 7.3 % (1.7-9.3); Neutrophils # 8.2 K/mm3 (1.8-7.8); Neutrophils % 71.4 % (37.0-80.0); Platelet Count 377 K/mm3 (142-424); Red Blood Count 4.48 M/mm3 (4.20-5.40); Red Cell Distribution Width 13.8 % (11.5-17.5); White Blood Count 11.5 K/mm3 (4.8-10.8)
--- NOTE | 2024-10-27 19:58 | HMH.EDGENADL ---
Discharge Plan Disposition Patient Disposition: Home, Self-Care Chief Complaint: Vaginal Bleeding Prescriptions Prescriptions: No Action albuterol sulfate 90 mcg/actuation HFA aerosol inhaler 2 inh INHALATION TID PRN (Reason: soa) carvedilol [Coreg] 12.5 mg tablet 12.5 mg PO BID Patient Comments: TAKE 1 & 1/2 TABLETS BY MOUTH IN THE MORNING AND 1 TABLET IN THE EVENING levocetirizine [24HR Allergy Relief] 5 mg tablet 5 mg PO DAILY escitalopram oxalate [Lexapro] 5 mg tablet 5 mg PO DAILY Patient Comments: TAKE 1 TABLET BY MOUTH ONCE DAILY cholecalciferol (vitamin D3) 75 mcg (3,000 unit) tablet 75 mcg PO DAILY valsartan-hydrochlorothiazide 320-25 mg tablet 1 tab PO DAILY metoclopramide HCl 5 mg tablet 5 mg PO QACHS Xarelto 20 mg tablet 20 mg PO DAILY ondansetron 4 mg tablet,disintegrating 4 mg PO NEEDED PRN (Reason: Acid Reflux) Patient Comments: DISSOLVE 1 TABLET IN MOUTH THREE TIMES DAILY rosuvastatin 10 mg tablet 10 mg PO DAILY ibuprofen [IBU] 600 mg tablet 600 mg PO QID PRN (Reason: Acid Reflux) Patient Comments: TAKE 1 TABLET BY MOUTH 4 TIMES DAILY NEEDED esomeprazole magnesium [Nexium] 40 mg capsule,delayed release(DR/EC) 40 mg PO NEEDED PRN (Reason: Acid Reflux) Patient Comments: TAKE 1 CAPSULE BY MOUTH ONCE DAILY iron,carbonyl-vitamin C 100-250 mg tablet 1 tab PO DAILY Qty: 90 3RF Ubrelvy 100 mg tablet 100 mg PO ONCE MDD 200 mg daily PRN (Reason: migraine headache) Qty: 10 6RF Rx Instructions: 1 tablet as needed for migraine. May repeat after 2 hours if persistent headache. trazodone 50 mg tablet 50 mg PO HS MDD 50 mg Qty: 30 5RF Rx Instructions: 25 mg po 2 hours before bedtime, may increase up to 50 mg po qhs levothyroxine 75 mcg tablet 88 mcg PO DAILY flecainide 50 MG tablet 50 mg PO BID [id number] serr 1 EACH tablet 1 each PO BID Referrals Follow up/Referrals: Jp Nguyen MD [Primary Care Provider] - See instructions Activity Restrictions/Add. Instructions Additional Instructions/Restrictions: Call your family doctor to establish care for this visit to the emergency department and schedule follow-up within 48 hours to ensure improvement. If you have any worsening of your condition or any other concerning signs or symptoms, return to the emergency department or your primary care doctor for further evaluation. Call [employer]PER[employer]OR to schedule follow-up appointment in order to do further evaluation. Clinical Impressions Clinical Impression: Abnormal vaginal bleeding Print Language Print Language: Tanzanian Discharge ED Provider: Ethan Roy General Adult HPI General Chief complaint: Vaginal Bleeding Stated complaint: Vaginal bleeding Time Seen by Provider: 10/27/24 19:02 Mode of Arrival: Ambulatory Source of Information: Patient Limitations: No Limitations Description of Symptoms (Recalled from ER Triage Doc. by RN): pt reports heavy vaginal bleeding since 1700. pt states when she sits down to urinate blood is just dripping heavily into the toilet. The blood is bright red and clots are present. pt c/o lower back pain that radiates around her abd. pt states the pain is cramping and 3/10. pt reports she has had intermittant vaginal bleeding throughout the last year. pt reports she had her uterus scraped by Dr. Yen in June of this year, she has not had any vaginal bleeding since. pt also reports some dizziness over the last few days. pt is currently on xarelto. pt has a hx of a tubal. pt states she took primphase about 20 years ago to put her into menopause. History of Present Illness HPI narrative: Please note that above description of symptoms, in this electronic medical record under categorization of recalled from ER triage doctor by RN are reflective of an initial nursing assessment, however, is not reflective of my full history and physical exam that was personally taken and clarified. Consequentially, this preceding description of symptoms, which may include the patient's categorized chief complaint in the EMR, do not reflect my personal clinical impression, and the ultimate description of history of present illness and patient stated complaints should be deferred to this section of the note. Unless stated otherwise or congruent with this section of the note, additional signs, symptoms, or incongruence should be interpreted as inaccurate with my clinical impression. Related Data Home Medications ?Medication ?Instructions ?Recorded ?Confirmed flecainide 50 mg tablet 50 mg PO BID Heart rhythm 12/03/19 07/04/24 glucosamine [id number] 1 each PO BID Supplement 12/03/19 07/04/24 ish 1,500 mg-400 unit-100 mg tablet levothyroxine 75 mcg tablet 88 mcg PO DAILY thyroid 04/04/21 07/04/24 valsartan 320 1 tab PO DAILY blood pressure 04/04/21 07/04/24 mg-hydrochlorothiazide 25 mg tablet albuterol sulfate 90 mcg/actuation 2 inh inhalation TID PRN soa 08/24/21 07/04/24 aerosol inhaler metoclopramide HCl 5 mg tablet 5 mg PO QACHS bloating 08/24/21 07/04/24 esomeprazole magnesium 40 mg 40 mg PO NEEDED PRN Acid Reflux 04/04/23 07/04/24 capsule,delayed release (Nexium) ibuprofen 600 mg tablet (IBU) 600 mg PO QID PRN Acid Reflux 04/04/23 07/04/24 ondansetron 4 mg disintegrating 4 mg PO NEEDED PRN Acid Reflux 04/04/23 07/04/24 tablet rivaroxaban 20 mg tablet (Xarelto) 20 mg PO DAILY 04/04/23 07/04/24 rosuvastatin 10 mg tablet 10 mg PO DAILY 04/04/23 07/04/24 carvedilol 12.5 mg tablet (Coreg) 12.5 mg PO BID 07/24/23 07/04/24 escitalopram oxalate 5 mg tablet 5 mg PO DAILY 07/24/23 07/04/24 (Lexapro) levocetirizine 5 mg tablet (24HR 5 mg PO DAILY 07/24/23 07/04/24 Allergy Relief) cholecalciferol (vitamin D3) 75 75 mcg PO DAILY 01/08/24 07/04/24 mcg (3,000 unit) tablet Previous Rx's ?Medication ?Instructions ?Recorded iron,carbonyl 100 mg-vitamin C 250 1 tab PO DAILY Iron deficieny #90 05/16/23 mg tablet tabs ubrogepant 100 mg tablet (Ubrelvy) 100 mg PO ONCE PRN migraine 04/08/24 headache #10 tabs trazodone 50 mg tablet 50 mg PO HS Anxiety, insomnia, RLS 07/04/24 #30 tabs Allergies Allergy/AdvReac Type Severity Reaction Status Date / Time Penicillins (PENICILLINS) Allergy Unknown Verified 07/03/24 16:44 [facility] Disclaimer: The information contained in this section may have been updated after the patient was seen, as this information can be updated by other users. Medical History History of migraine History of hypertension History of osteoarthritis History of atrial fibrillation Personal history of other diseases of the circulatory system History of high blood pressure Surgical History History of total knee replacement History of tonsillectomy History of right shoulder replacement History of tubal ligation History of colonoscopy Family History Other Asthma COPD (chronic obstructive pulmonary disease) Family history of coronary artery disease Family history of diabetes mellitus Hypertension Social History Smoking Status: Never smoker alcohol intake: never substance use type: denies use and other current occupational status: unemployed Travel in the last 8 weeks: None household members: spouse housing: house 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 current occupational exposures/hazards: No caffeine: Yes Have you lived/traveled outside US in past 30 days?: No Contact w/someone who lives/traveled outside US past 30 days?: No Exposure to someone with infectious disease in past 14 days?: No Do you have a fever (greater than 100.4 F or 38 C)?: No Have you tested positive for COVID-19: No Exposed to someone with COVID-19 in past 14 days?: No Do you have a sore throat?: No Do you have a cough?: No Do you have any weakness?: No Do you have any diarrhea?: No Are you experiencing any unusual bleeding?: No Do you have any muscle aches/pain?: No Do you have any abdominal pain?: No Are you experiencing loss of taste or smell?: No Other Medical History Have you received the Flu Vaccine for this season: Yes Have you received the Pneumonia Vaccine: Yes ROS Obtained: Yes All systems reviewed & no additional complaints except as documented Physical Exam General General appearance: alert Head Head exam: atraumatic and normocephalic Eye Eye exam: Present normal appearance, PERRL and EOMI Neck Neck exam: Present normal inspection, full ROM and trachea midline Respiratory Respiratory exam: Absent respiratory distress, wheezes, stridor, accessory muscle use or prolonged expiratory phase Cardiovascular Cardiovascular exam: Present other (Pulses equal symmetric in upper and lower extremities) Abdominal Exam Abdominal exam: Present soft; Absent distention, tenderness or pulsatile mass Extremities Exam Extremities exam: Absent edema Neurological Exam Neurological exam: Present alert, oriented X3 and CN II-XII intact; Absent motor sensory deficit Skin Skin exam: Present warm and dry; Absent diaphoresis or erythema Medical Decision Making Medical Records Medical records reviewed: Yes I reviewed the patient's medical records. Screening: Per USPSTF and CDC recommendations, given the prevalence of disease in our region, it is our hospital?s policy to screen for HIV and viral Hepatitis for all patients aged 18 and over and those with ongoing risk factors. Ashutosh Inquiry Pt receiving controlled substance: No Ashutosh was queried for this patient: No Vital Signs: 10/27/24 18:49 10/27/24 19:15 10/27/24 20:51 Temperature 98.1 F Temperature Source Oral Pulse Rate 79 75 Pulse Rate [Left] 82 Respiratory Rate 14 Blood Pressure 149/75 H Blood Pressure [Right Arm] 139/77 Blood Pressure Mean [Right Arm] 97 Blood Pressure Source [Right Arm] Automatic Cuff Blood Pressure Position [Right Arm] Sitting 02 Sat by Pulse Oximetry 96 97 98 Oxygen Delivery Method Room Air 10/27/24 21:00 Temperature Temperature Source Pulse Rate 69 Pulse Rate [Left] Respiratory Rate Blood Pressure 153/82 H Blood Pressure [Right Arm] Blood Pressure Mean [Right Arm] Blood Pressure Source [Right Arm] Blood Pressure Position [Right Arm] 02 Sat by Pulse Oximetry 98 Oxygen Delivery Method Lab Data Lab Results 10/27/24 17:41: Lactate 1.4 10/27/24 19:04: WBC 11.5 H, RBC 4.48, Hgb 13.1, Hct 40.4, MCV 90.2, MCH 29.2, MCHC 32.4, RDW 13.8, Plt Count 377, MPV 9.6, Neut % (Auto) 71.4, Lymph % (Auto) 18.0, [place] % (Auto) 7.3, Eos % (Auto) 2.6, Baso % (Auto) 0.4, Neut # (Auto) 8.2 H, Lymph # (Auto) 2.1, [place] # (Auto) 0.8, Eos # (Auto) 0.3, Baso # (Auto) 0.1, PT 11.7, INR 1.05, APTT 33.4 H, Sodium 137, Potassium 3.5, Chloride 101, Carbon Dioxide 30, Anion Gap 9.5, BUN 12, Creatinine 1.10 H, Estimated Creat Clear 67, Estimated GFR 50 L, Est GFR ( Amer) 61, Glucose 116 H, Calcium 9.4, Total Bilirubin 0.4, AST 38 H, ALT 36, Alkaline Phosphatase 131 H, Total Protein 6.7, Albumin 4.0, Globulin 2.7, Albumin/Globulin Ratio 1.5 10/27/24 20:00: Urine Color Red, Urine Appearance Cloudy, Urine pH 6.0, Ur Specific [place] 1.020, Urine Protein Trace, Urine Glucose (UA) Negative, Urine Ketones Negative, Urine Blood 3+ A, Urine Nitrate Negative, Urine Bilirubin Negative, Urine Urobilinogen 0.2, Ur Leukocyte Esterase Negative, Urine RBC Tntc 10/27/24 19:04 10/27/24 19:04 Orders (Tests/Meds): ED MEDICATIONS Discontinued Medications Generic Name Dose Route Start Last Admin Trade Name Freq PRN Reason Stop Dose Admin Iopamidol 80 ml 10/27/24 20:44 10/27/24 20:47 Iopamidol-370 (76%);100ml Bottle IV 10/27/24 20:45 80 ml ONCE ONE Administration Iopamidol 80 ml 10/27/24 20:46 Iopamidol-370 (76%);100ml Bottle IV 10/27/24 20:47 ONCE ONE Sodium Chloride 50 ml 10/27/24 20:44 10/27/24 20:47 0.9 % Sodium Chloride 50 Ml Vial IV 10/27/24 20:45 50 ml ONCE ONE Administration Sodium Chloride 10 ml 10/27/24 20:44 10/27/24 20:47 Sodium Chloride 0.9% 10ml Syr (Rad Only) IV 10/27/24 20:45 10 ml ONCE ONE Administration Sodium Chloride 10 ml 10/27/24 20:46 Sodium Chloride 0.9% 10ml Syr (Rad Only) IV 10/27/24 20:47 ONCE ONE Sodium Chloride 50 ml 10/27/24 20:46 0.9 % Sodium Chloride 50 Ml Vial IV 10/27/24 20:47 ONCE ONE ORDERS Category Date Time Status CT angio abdomen pelvis Stat Cat Scan 10/27/24 19:27 Taken Complete Blood Count Auto Diff Stat Lab 10/27/24 19:04 Completed Comprehensive Metabolic Panel Stat Lab 10/27/24 19:04 Completed HIV Combo Stat Lab 10/27/24 19:04 Received Hemoglobin A1C Stat Lab 10/27/24 19:04 Received Hep C Ab with Reflex to RNA Stat Lab 10/27/24 19:04 Received Lactic Acid Stat Lab 10/27/24 17:41 Completed PT INR [Prothrombin Time INR] Stat Lab 10/27/24 19:04 Completed PTT [Activated Partial Thrombo Time] Stat Lab 10/27/24 19:04 Completed Urinalysis and Microscopic Stat Lab 10/27/24 20:00 Completed Medical Decision Narrative: 64-year-old female history of A-fib on Xarelto presenting with vaginal bleeding. She states that she started bleeding earlier this morning and has been pretty persistent throughout the day. Passing large clots. No syncope, chest pain, shortness of breath, nausea, vomiting, pain, but intermittent cramping in her lower abdomen. Because she is on Xarelto came in for further evaluation. History was obtained via conversation with patient. On arrival, patient hemodynamically stable, alert, oriented x4, appropriate, GCS 15, moving all extremities spontaneously, pupils equal and reactive to light. Full physical exam performed and significant for very clinically well-appearing female no acute distress. She is normotensive, nontachycardic speaking in full sentences and abdomen exam is benign. Pelvic exam performed and patient does have small amount of blood at cervical os. Cervical os is closed. No evidence of vaginal laceration. She is not actively passing large clots or hemorrhaging by any means. Differential includes polyp, malignancy, AVM, among others. Patient placed on continuous cardiac monitoring and continuous pulse ox with initial blood pressure 153/82, heart rate 69, saturation 98% on room air. Toradol considered, but patient not actively having cramping or any acute distress, so held off at this time especially given bleeding. Workup independently interpreted and significant for nonactionable hematologic workup. White cell count 11.5, hemoglobin 13.1, platelets are normal. Coags are normal. Patient's chemistry with mild LACY creatinine 1.1, otherwise nonactionable. Urine is without concern for UTI. On independent interpretation of imaging, no active bleed. Globular uterus. See radiology read for full review of final results. On reevaluation, patient still resting comfortably, has not saturated all the way through pants that she has been wearing or diaper that she has been wearing. Given patient presentation, workup, history, this most likely represents abnormal uterine bleeding in postmenopausal patient, likely benign versus malignant process of the uterus. Because patient at baseline without signs or symptoms of clinical decompensation, deemed appropriate for discharge. Results were relayed to patient who voiced understanding and were agreeable to outpatient management and follow up. I discussed my clinical impression with patient and answered all questions. At this time, the evidence for any other entities in the differential is insufficient to warrant any further testing or ED observation. This was explained as well. Advisory was given that persistent or worsening symptoms require further evaluation. I confirmed the understanding of this discussion. Moccasin Sewer disclaimer Much of this encounter note is an electronic chief drafter spoken language to printed text. Electronic chief drafter of the spoken language may permit errors. Although I have reviewed the note, some errors may still exist. Critical Care Critical Care Time Critical Care Time: No
[2024-10-27 20:03] LABS: Microscopic, Urine URINE MICROSCOPIC (MICROSCOPIC)
--- NOTE | 2024-10-27 20:04 | PC.NURSE ---
Pelvic exam done with RN assistance. Pt tolerated well
[2024-10-27 20:05] LABS: Activated Partial Thrombo Time 33.4 seconds (22.8-30.6)
[2024-10-27 20:23] LABS: Bilirubin,Urine Negative (Negative); Blood, Urine 3+ (Negative); Glucose,Urine (UA) Negative (Negative); Ketones,Urine Negative (Negative); Leukocyte Esterase,Urine Negative (Negative); Nitrate,Urine Negative (Negative); Protein,Urine TRACE (Negative); Urobilinogen,Urine 0.2 EU/dl (0.2)
[2024-10-27 20:27] LABS: Color,Urine Red (Yellow)
[2024-10-27 20:28] LABS: Appearance,Urine Cloudy (Clear)
[2024-10-27 20:38] LABS: Chloride 101 mmol/L (98-107); Potassium 3.5 mmoL/L (3.5-5.1); Sodium 137 mmol/L (136-145)
[2024-10-27 20:40] LABS: Lactic Acid 1.4 mmol/L (0.7-2.1)
[2024-10-27 20:41] LABS: Alanine Aminotransferase 36 U/L (12-78); Albumin/Globulin Ratio 1.5 (1.1-1.8); Alkaline Phosphatase 131 U/L (38-126); Anion Gap 9.5 mEq/L (5-15); Aspartate Amino Transferase 38 U/L (14-36); Bilirubin,Total 0.4 mg/dl (0.2-1.3); Blood Urea Nitrogen 12 mg/dl (7-17); Carbon Dioxide 30 mmol/L (22.0-30.0); Creatinine Clearance Estimated 67 mL/min (50-200); Estimated Glomerular Filt Rate 50 ml/min (>60); GFR (African American) 61 ML/MIN (>60); Globulin 2.7 g/dL (1.3-3.2); Total Protein,Serum 6.7 g/dl (6.3-8.2)
[2024-10-27 20:42] LABS: Calcium 9.4 mg/dl (8.4-10.2); Glucose 116 mg/dl (74-100)
[2024-10-27 20:44] LABS: RBC,Urine TNTC #/hpf (0-3)
[2024-10-27] MEDS: SODIUM CHLORIDE 0.9% 10ML SYR (RAD ONLY) 10 ML IV (20:47)
[2024-10-27] MEDS: IOPAMIDOL-370 (76%);100ML BOTTLE 80 ML IV (20:47)
[2024-10-27] MEDS: 0.9 % SODIUM CHLORIDE 50 ML VIAL IV (20:47)
[2024-10-27 20:51] VITALS: PULSE 75; O2SAT 98
[2024-10-27 20:52] LABS: INR 1.05 (0.9-1.1); Prothrombin Time 11.7 seconds (10.1-12.5)
[2024-10-27 21:00] VITALS: BP 153/82; PULSE 69; O2SAT 98
[2024-10-27 21:17] VITALS: BP 151/90; PULSE 65; RESP 16; TEMP 36.6; O2SAT 98
--- NOTE | 2024-10-27 21:19 | PC.NURSE ---
IV removed. Catheter tip intact. Bleeding controlled.
[2024-10-27 21:20] LABS: HIV Combo NEGATIVE (Negative)
[2024-10-27 22:09] LABS: Hemoglobin A1C 5.8 % (4.0-6.0)
[2024-10-29 06:13] LABS: HCV Ab Non Reactive (Non Reactive)
== END 2024-10-27 21:33 | disposition home or self-care (01) ==
PROVIDERS: Emergency Provider Emergency Medicine; PCP Family Medicine
DX: N93.9 Abnormal uterine and vaginal bleeding, unspecified (principal); M54.50 Low back pain, unspecified; R42 Dizziness and giddiness
CPT/HCPCS: 74174; 80053; 81001; 83036; 83605; 85025; 85610; 85730; 86803; 87389; 99285; Q9967

== ENCOUNTER 2024-10-30 13:49 | Outpatient (CLI) | payer OTHER, SELFPAY ==
--- NOTE | 2024-10-30 13:54 | US_ITS ---
PROCEDURE: US TRANSVAGINAL CLINICAL INDICATION: MASK FORMER bleeding COMPARISON: CT CT ANGIO ABDOMEN PELVIS from 10/27/2024 FINDINGS: Transvaginal sonographic images of the pelvis were obtained. UTERUS: 6.8 cm x 3.5 cmx 3.4 cm with a combined endometrial thickness of 13.8mm. The endometrium appears thickened up to 2.0 cm There appears to be clot within the cervix. LEFT OVARY: Not visualized transvaginally or transabdominally RIGHT OVARY: Not visualized transvaginally or transabdominally Both ovaries are not visualized. There is no fluid in the cul-de-sac. IMPRESSION: 1. Axial uterus normal in shape and size. The endometrium appears thickened. Suggest endometrial sampling. Difficult exam due to the axial position of the uterus. 2. There appears to be some clot within the cervix. 3. The ovaries were not visualized and attempts were made to see them transvaginally and transabdominally. 4. No fluid in the cul-de-sac Dictated by: Alex Fraser MD 10/31/2024 10:38 Alex Fraser MD in [place] 10/31/2024 10:38
== END 2024-10-30 23:59 | disposition home or self-care (01) ==
LOC: RAD 13:50
PROVIDERS: PCP Family Medicine; Visit Provider Obstetrics & Gynecology
DX: N93.9 Abnormal uterine and vaginal bleeding, unspecified (principal)
CPT/HCPCS: 76830

== ENCOUNTER 2024-11-04 12:51 | Outpatient (CLI) | payer OTHER, SELFPAY ==
--- NOTE | 2024-11-04 13:03 | ECG_ITS ---
APPROVED REPORT Exam: Resting ECG HR:59 bpm ECG Measurements Heart Rate 59 AXES UT 203 P 67 QRSd 109 QRS 8 QT 390 T 32 QTc 389 Conclusion SINUS BRADYCARDIA LOW QRS VOLTAGE IN PRECORDIAL LEADS [QRS DEFLECTION < 1.0 mV IN CHEST LEADS] POSSIBLE ANTERIOR MYOCARDIAL INFARCTION , PROBABLY OLD [30 ms Q WAVE IN V3/V4, OR R < 0.2 mV IN V4] BORDERLINE ECG UNCONFIRMED REPORT Electronically signed by : Librado Flynn MD 11/08/2024 08:34:03
[2024-11-04 13:11] VITALS: BMI 66.0
== END 2024-11-04 23:59 | disposition home or self-care (01) ==
LOC: PREOP 12:51
PROVIDERS: PCP Family Medicine; Visit Provider Obstetrics & Gynecology
DX: R00.1 Bradycardia, unspecified (principal); R94.31 Abnormal electrocardiogram [ECG] [EKG]
CPT/HCPCS: 93005

== ENCOUNTER 2024-11-06 08:23 | Day surgery (SDC) | payer OTHER, SELFPAY ==
[2024-11-04 13:20] VITALS: BMI 29.9
[2024-11-04 13:37] LABS: Chloride 103 mmol/L (98-107); Potassium 3.5 mmoL/L (3.5-5.1); Sodium 140 mmol/L (136-145)
[2024-11-04 13:40] LABS: Anion Gap 10.5 mEq/L (5-15); Blood Urea Nitrogen 10 mg/dl (7-17); Carbon Dioxide 30 mmol/L (22.0-30.0); Creatinine Clearance Estimated 74 mL/min (50-200); Estimated Glomerular Filt Rate 63 ml/min (>60); GFR (African American) 77 ML/MIN (>60)
[2024-11-04 13:41] LABS: Calcium 9.1 mg/dl (8.4-10.2); Glucose 99 mg/dl (74-100)
[2024-11-06] VITALS (9 sets, daily range): BP systolic 136–159; BP diastolic 61–92; PULSE 68–85; RESP 16–18; TEMP 36.1–36.3; O2SAT 95–98
--- NOTE | 2024-11-06 09:02 | EXP.ANES.CKL ---
[facility] Disclaimer: The information contained in this section may have been updated after the patient was seen, as this information can be updated by other users. Medical History Afib PMB (postmenopausal bleeding) History of migraine History of hypertension History of osteoarthritis History of atrial fibrillation Personal history of other diseases of the circulatory system History of high blood pressure Surgical History History of total knee replacement History of tonsillectomy History of right shoulder replacement History of tubal ligation History of colonoscopy Family History Other Asthma COPD (chronic obstructive pulmonary disease) Family history of coronary artery disease Family history of diabetes mellitus Hypertension Social History (Updated 11/06/24 @ 08:49 by Tana Bocanegra RN) Smoking Status: Never smoker alcohol intake: never substance use type: denies use and other current occupational status: retired Travel in the last 8 weeks: None household members: spouse housing: house 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 current occupational exposures/hazards: No caffeine: Yes Have you lived/traveled outside US in past 30 days?: No Contact w/someone who lives/traveled outside US past 30 days?: No Exposure to someone with infectious disease in past 14 days?: No Do you have a fever (greater than 100.4 F or 38 C)?: No Have you tested positive for COVID-19: Yes Exposed to someone with COVID-19 in past 14 days?: No Do you have a sore throat?: No Do you have a cough?: No Do you have any weakness?: No Are you experiencing any nausea/vomitting?: No Do you have any diarrhea?: No Are you experiencing any unusual bleeding?: No Do you have any muscle aches/pain?: No Do you have any abdominal pain?: No Are you experiencing loss of taste or smell?: No [facility] Anesthesia Checklist Patient Identification Patient Identification: Arm Band, Family and Verbal (Name & ) Structural Data Admitted From: Home Planned Operative Procedure/s: Hysteroscopy, D&C, Myosure Consent for Planned Operative Procedure(s) Verified: Yes Verified Documents: Surgical Consent and History and Physical NPO Status Verified Time NPO: 21:00 Chart Verification Results Verified: CBC, BMP, ECG and Chest Xray Additional verifications Patient : No Anesthesia Reactions: No Hx Blood Transfusions: No Blood Transfusion Reaction: No Cardiovascular Assessment Heart Sounds: S1 & S2 Pulse Rhythm: Irregular Peripheral Edema: No Airway Assessment Mallampati Score:: Class II C-Spine Mobility Assessed: Yes (FROM demonstrated) TMJ Mobility Assessed: Yes Dentition: Good Dentition (Nothing loose per pt.) Neurological Assessment Level of Consciousness: Awake, Alert, Appropriate and Follows Commands Hx Seizures: No Numbness or tingling in extremities: No Anesthesia Plan Anesthesia Risk discussed: Yes Anesthesia Plan: Verified ASA Class: III Anesthesia Type: General
[2024-11-06] MEDS: LACTATED RINGERS 1000ML 1,000 ML 25 ML IV (09:58)
--- NOTE | 2024-11-06 10:54 | EXP.ANES.I ---
[facility] Anesthesia Record Part I Anesthesia Record I Intake, IV Amount: 700 Hydration: Adequate Estimated blood loss (mL): 10 Urine output (mL): 50 Blood Pressure: 159/83 SaO2: 95 Pulse Rate: 77 Airway Patency: Patent Respiratory Rate: 16 Temperature: 97.3 F Patient is:: Awake Stable to PACU at:: 10:50
--- NOTE | 2024-11-06 11:47 | EXP.OP.NOTE ---
Date of procedure: 11/06/24 Pre-op Diagnosis:: 1. Postmenopausal bleeding 2. Thickened endometrial stripe Post-op Diagnosis:: 1. Postmenopausal bleeding 2. Thickened endometrial stripe 3. Cervical polyp Procedure performed:: Hysteroscopy, dilation, and MyoSure polypectomy with MyoSure endometrial curettage Surgeon:: Karissa Adrian DO NETBACKUP ENGINEER:: Eric Vallejo Anesthesia: GETA Estimated blood loss (mL): 5 Operative findings:: Findings: -EUA revealed an 6-week anteverted uterus with regular contour. No significant prolapse or support defects noted. -Hysteroscopy revealed a very thin atrophic endometrial lining. There was 1 small cervical polyp noted upon entry. Operative note:: The patient was taken back to the OR where general anesthesia was obtained.? She was placed in the dorsal lithotomy position using candycane stirrups and sterilely prepped and draped in the usual fashion.? A timeout was performed.? A weighted speculum would not fit in the patients narrowed introidus and a right angle retractor and small joe were used to visualize this cervix, a single-tooth tenaculum was applied to the anterior lip of the cervix and the os was dilated to accomodate the myosure scope. Device set up, primed and zeroed. The hysterscope was inserted to the fundus, immediately a cavity filling polyp was noted. Images were obtained. Myosure was used to remove the three polyps described above. Total fluid deficit was less than 300mLs. Following complete removal of the polyps the MyoSure hysteroscope was removed.? The single-tooth tenaculum was removed and hemostasis was noted at the tenaculum sites.? All instruments were removed from the vagina.? All counts were correct, per nursing.? This was a combo case and at this time the sterile field was broken down and sit up for general surgery to complete their portion of the procedure. The patient was taken back to the OR where general anesthesia was obtained.? She was placed in the dorsal lithotomy position using yellow fin stirrups and sterilely prepped and draped in the usual fashion.? An in and out catheter was used to drain her bladder.? A timeout was performed.? A weighted speculum was used to visualize this cervix, a single-tooth tenaculum was applied to the anterior lip of the cervix. The cervix was only slightly dilated to allow entry to the ectocervix and hydrodisection was used to get the scope the rest of the way into the cavity. The hysterscope was inserted findings as described above. Images were obtained of the cavity. The tubal ostia easily visible.? Decision was made to proceed with the MyoSure for endometrial curettings and cervical polypectomy. Device set up, primed and zeroed. At the conclusion of the procedure there was a fluid deficit of approximately 100 mLs. Total myosure cutting time was 45seconds. MyoSure hysteroscope was removed.? The single-tooth tenaculum was removed and hemostasis was noted at the tenaculum sites.? All instruments were removed from the vagina.? All counts were correct, per nursing.? This concluded the procedure, the patient was awakened from anesthesia, and transferred to the PACU in stable condition. Condition: stable Disposition: same day Specimens:: Endometrial curettings and cervical polyp Complications:: None
--- NOTE | 2024-11-10 13:11 | EXP.ANES.II ---
[facility] Anesthesia Record Part II Anesthesia Record Part II Discharge Time: 11:20 Destination: Surgical Day Care (OP Surgery) PACU nurse assessment reviewed?: Yes Patient Condition:: Good Anesthesia Complications:: None Swallowing reflex intact?: Yes Airway Patency: Patent Cyanosis?: No Blood Pressure: 148/79 SaO2: 97 Respiratory Rate: 16 Pulse Rate: 68 Temperature: 97 F Mental Status: Alert & Oriented Pain level:: 0 Nausea and/or vomitting:: None Intake, IV Amount: 0 Hydration: Adequate
[2024-11-10 13:12] VITALS: BP 148/79; PULSE 68; RESP 16; TEMP 36.1; O2SAT 97
== END 2024-11-06 12:03 | disposition home or self-care (01) ==
PROVIDERS: PCP Family Medicine; Visit Provider Obstetrics & Gynecology
PROC: (CPT 58558; principal; 2024-11-06 10:15)
DX: N92.4 Excessive bleeding in the premenopausal period (principal); N84.1 Polyp of cervix uteri
CPT/HCPCS: 58558; 80048; J1100; J1595; J2250; J2405; J3010; J7120

== ENCOUNTER 2024-12-31 12:10 | Outpatient (CLI) | payer OTHER, SELFPAY ==
[2024-12-31 12:45] LABS: Basophils % 0.5 % (0.1-2.0); Eosinophils # 0.2 K/mm3 (0.0-0.4); Eosinophils % 2.7 % (0.1-12.0); Hematocrit 37.6 % (37.0-47.0); Hemoglobin 11.9 g/dL (12.2-16.2); Lymphocytes # 2.1 K/mm3 (0.7-4.5); Lymphocytes % 25.4 % (10-50); Mean Corpuscular HGB Conc 31.6 g/dL (31.8-35.4); Mean Corpuscular Hemoglobin 28.3 pg (27.0-31.2); Mean Corpuscular Volume 89.3 fl (81-99); Mean Platelet Volume 9.2 fl (7.4-10.4); Monocytes # 0.7 K/mm3 (0.1-1.0); Monocytes % 8.7 % (1.7-9.3); Neutrophils % 62.5 % (37.0-80.0); Platelet Count 353 K/mm3 (142-424); Red Blood Count 4.21 M/mm3 (4.20-5.40); Red Cell Distribution Width 14.5 % (11.5-17.5); White Blood Count 8.1 K/mm3 (4.8-10.8)
[2024-12-31 13:29] LABS: Alanine Aminotransferase 28 U/L (12-78); Albumin Level 4.1 g/dl (3.5-5.0); Albumin/Globulin Ratio 1.9 (1.1-1.8); Alkaline Phosphatase 110 U/L (38-126); Anion Gap 9.5 mEq/L (5-15); Aspartate Amino Transferase 31 U/L (14-36); Blood Urea Nitrogen 17 mg/dl (7-17); Carbon Dioxide 30 mmol/L (22.0-30.0); Chloride 104 mmol/L (98-107); Estimated Glomerular Filt Rate 72 ml/min (>60); GFR (African American) 88 ML/MIN (>60); Globulin 2.2 g/dL (1.3-3.2); Glucose 91 mg/dl (74-100); Potassium 3.5 mmoL/L (3.5-5.1); Sodium 140 mmol/L (136-145); Total Protein,Serum 6.3 g/dl (6.3-8.2)
[2024-12-31 13:41] LABS: Bilirubin,Total 0.1 mg/dl (0.2-1.3)
[2024-12-31 13:46] LABS: HCG,Quantitative 4 mIU/ml (0-5.42)
== END 2024-12-31 23:59 | disposition home or self-care (01) ==
LOC: PREOP 12:11
PROVIDERS: PCP Family Medicine; Visit Provider Obstetrics & Gynecology
DX: N93.9 Abnormal uterine and vaginal bleeding, unspecified (principal)
CPT/HCPCS: 80053; 84702; 85025

== ENCOUNTER 2025-01-06 06:08 | Day surgery (SDC) | payer OTHER, SELFPAY ==
[2024-12-31 12:46] VITALS: BMI 31.1
[2025-01-06] VITALS (10 sets, daily range): BP systolic 130–148; BP diastolic 60–82; PULSE 61–86; RESP 12–18; TEMP 36.4–43; O2SAT 95–99
[2025-01-06] MEDS: CELECOXIB 100MG CAPSULE 400 MG PO (06:39)
[2025-01-06] MEDS: ACETAMINOPHEN 500MG TAB 1000 MG PO (06:40)
--- NOTE | 2025-01-06 07:20 | EXP.ANES.CKL ---
[facility] Disclaimer: The information contained in this section may have been updated after the patient was seen, as this information can be updated by other users. Medical History GERD (gastroesophageal reflux disease) Afib PMB (postmenopausal bleeding) History of migraine History of hypertension History of osteoarthritis History of atrial fibrillation Personal history of other diseases of the circulatory system History of high blood pressure Surgical History History of cervical polypectomy History of total knee replacement History of tonsillectomy History of right shoulder replacement History of tubal ligation History of colonoscopy Family History Other Asthma COPD (chronic obstructive pulmonary disease) Family history of coronary artery disease Family history of diabetes mellitus Hypertension Social History (Updated 01/06/25 @ 06:45 by Tana Bocanegra RN) Smoking Status: Never smoker alcohol intake: never substance use type: denies use and other current occupational status: retired Travel in the last 8 weeks: None household members: spouse housing: house 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 current occupational exposures/hazards: No caffeine: Yes Have you lived/traveled outside [place] in past 30 days?: No Contact w/someone who lives/traveled outside [place] past 30 days?: No Exposure to someone with infectious disease in past 14 days?: No Do you have a fever (greater than 100.4 F or 38 C)?: No Have you tested positive for COVID-19: No Exposed to someone with COVID-19 in past 14 days?: No Do you have a sore throat?: No Do you have a cough?: No Do you have any weakness?: No Are you experiencing any nausea/vomitting?: No Do you have any diarrhea?: No Are you experiencing any unusual bleeding?: No Do you have any muscle aches/pain?: No Do you have any abdominal pain?: No Are you experiencing loss of taste or smell?: No [facility] Anesthesia Checklist Structural Data Admitted From: Home Planned Operative Procedure/s: TVH, BSO Cysto. Verified Documents: Surgical Consent and History and Physical NPO Status Verified Time NPO: 00:00 Additional verifications Patient : No Anesthesia Reactions: No Hx Blood Transfusions: No Blood Transfusion Reaction: No Cephalosporin Allergy: No Previous Colonoscopy: Yes Airway Assessment Mallampati Score:: Class II C-Spine Mobility Assessed: Yes TMJ Mobility Assessed: Yes Dentition: Good Dentition Neurological Assessment Level of Consciousness: Awake, Alert, Appropriate and Follows Commands Hx Seizures: No Numbness or tingling in extremities: No Anesthesia Plan Anesthesia Risk discussed: Yes ASA Class: II Anesthesia Type: General
[2025-01-06] MEDS: CLINDAMYCIN PHOSPHATE/D5W 900 MG/50 ML PIGGYBACK 100 MG IV (07:24)
[2025-01-06] MEDS: METHYLENE BLUE 0.5% 10ML AMPULE 50 MG IV (07:55)
[2025-01-06] MEDS: LIDOCAINE 1% W/EPI 1:100,000 20ML VIAL 20 ML (07:55)
[2025-01-06] MEDS: GENTAMICIN SULFATE 400 MG in 0.9 % SODIUM CHLORIDE 100 ML 100 MG IV (08:00)
[2025-01-06] MEDS: METRONIDAZ/SOD CHL 500 MG/100 ML PIGGYBACK 100 MG IV (08:05)
[2025-01-06] MEDS: ROPIVACAINE 0.5% 30ML VIAL 150 MG (08:47)
--- NOTE | 2025-01-06 09:51 | EXP.ANES.I ---
[facility] Anesthesia Record Part I Anesthesia Record I Intake, IV Amount: 950 Hydration: Adequate Estimated blood loss (mL): 50 Urine output (mL): 50 Blood Products used (#): none Blood Pressure: 130/69 SaO2: 95 Pulse Rate: 73 Airway Patency: Patent Respiratory Rate: 16 Temperature: 97.5 F Patient is:: Drowsy and Stable Stable to PACU at:: 09:45
--- NOTE | 2025-01-06 10:14 | P.OP_ITS ---
Date of procedure: 01/06/25 Pre-op Diagnosis:: 1. Postmenopausal uterine bleeding 2. Benign endometrial biopsy Post-op Diagnosis:: 1. Postmenopausal uterine bleeding 2. Benign endometrial biopsy Procedure performed:: 1. Total vaginal hysterectomy 2. Diagnostic laparoscopy 3. Bilateral salpingo-oophorectomy 4. Cystoscopy Surgeon:: Karissa Adrian DO Compound Machine Operator(s):: Alex Fraser MD CLINICAL CONSULTANT:: Simeon Jordan Anesthesia: GETA Estimated blood loss (mL): 50 Operative findings:: Uterine EUA was significant for 6wk size uterus with regular borders at the fundus. There was a narrowed vaginal introitus without significant descent. No gross adnexal masses were appreciated. Operative note:: Pt was taken back to the OR where GETA was obtained without difficulty. SCDs w ere placed and found to be working. The patient was placed in dorsal lithotomy position using yellowfin stirrups. The vagina was prepped and draped in the normal sterile fashion. An in and out catheter was used to drain the bladder and 20 mL of methylene blue normal saline were inserted into the bladder. A weighted speculum and Rafael were used to visualize the cervix. Two Mclaughlin tenaculums were used to grasp the anterior and posterior ectocervix on the right and left. The bovie was used to make a circumferential incision at the cervicovaginal junction. A raytec was used to bluntly dissect the paracervical fascia from the cervix off the vaginal mucosa. Metzenbaum scissors and pickups were used to enter the colpotomy posteriorly and a long weighted speculum was placed. Abdominal entry was confirmed by the presence of the ovary and omentum. The left uterosacral ligament was grasped with a ann clamp, cut, and suture ligated with 0-Vicryl. This was tagged for later incorporation to the cuff. This process was repeated on the contralateral side. The anterior vaginal tissue was further dissected off the cervix. Pickups and Metzenbaum scissors were used to make the anterior colpotomy. A Rafael retractor was placed. Entry to the abdominal cavity was confirmed with the presence of omentum and the left ovary was visualized. The Enseal was used to dissect the broad ligament down the lateral aspect of the uterine body on the left side. The cardinal ligaments and uterine vessels were identified bilaterally, grasped with the Enseal, coagulated and transected. This process was repeated on the right. The utero-ovarian ligament was clamped, coagulated and transected on the left. At this time there was only a very small amount of the broad ligament and the round ligament noted to be attached on the right. The Enseal was used to take this down. The uterus was free and removed from the vagina, passed off the operative field and sent to pathology for evaluation. The right fallopian tube was grasped with an Allis. A sponge stick was placed to create a safe distance from the bowel and the Enseal was used to transect the mesosalpinx. Hemostasis noted. Fallopian tube pa ssed off the operative field. The left fallopian tube remnant was not easily or safely accessible and left in situ. The posterior peritoneum was fixed to the posterior vaginal cuff with a running locking stitch using 0 Vicryl. The vaginal cuff was then closed with 0 Vicryl [id number]. There is a small area of bleeding where the vaginal tissue was very thin and the suture tore through the posterior mucosa. This was reapproximated with a 2-0 Monocryl. Hemostasis was noted. 2 sugar cube Gelfoam blocks were placed at the apex of the vagina for added hemostasis secondary to the patient being on a blood thinner and not having good clotting capabilities. The area was observed for greater than 2 minutes, hemostasis was noted. Attention was turned abdominally for diagnostic laparoscopy with bilateral salpingo-oophorectomy. 10mL of Lidocaine with epinepherine was injected infraumbilically and a scalpel was used to make a 5 mm infraumbilical incision with the assistance from a randa bacon. The skin was tented and Optiview blunt trocar was introduced into the abdomen in the usual fashion. CO2 gas was connected with an initial pressure of 6 mmHg noted. Pneumoperitoneum was created to a pressure of 15 mmHg. The laparoscopic camera was inserted and a quick survey of the abdomen revealed grossly normal anatomy. The patient was placed in Trendelenburg. 10mLs of local anesthetic was injected and a 5mm incision was then made in the right lower quadrant with careful attention to avoid the rectus muscles and vasculature and under direct laparoscopic visualization a blunt trocar was introduced into the abdominal cavity. This process was repeated on the left side with an 11 mm trocar to allow adequate room for ovarian removal in an Endo Catch bag if needed. The bilateral ovaries were identified, there were noted to be very small and postmenopausal. The fallopian tube was identified, grasped, and removed from the pelvic sidewall. The ureters were visualized and noted to be distal to the operative field. Ureter visualization was difficult secondary to significant adipose tissue. The Ligasure was used to grasp the infundibulopelvic ligament. The IP ligament was grasped, coagulated, and transected. The LigaSure worked serially to remove the fallopian tube in its entirety. The ovary and fallopian tube complex were removed easily from the trocar and passed off the operative field to be sent to pathology for further evaluation. This process was repeated on the, the contralateral side. There was significant atrophy of the ovary, it was very small and postmenopausal appearing. The pelvis was inspected There was a small amount of bleeding noted at the left apex of the colpotomy. Surgical hemostatic clips were placed and this was made hemostatic. The pneumoperitoneum was reduced and the pedicles and vaginal cuff were thoroughly inspected and noted to be hemostatic. The pelvis was copiously irrigated and hemostasis appreciated. For added prophylaxis Surgicel powder was applied over the operative site. The Michael Bartholomew was used to place a 0 Vicryl stitch to close the fascial defect. Pneumoperitoneum reduced, and all ports removed. The 3 abdominal incisions were closed with a single simple interrupted suture using 4-0 Monocryl. Dermabond was applied to each skin incision. The [place] uterine manipulator was removed. All counts were correct x2, per nursing. The patient was extubated, stable, and transferred to the PACU. She will be discharged after meeting all DC criteria to include voiding, ambulating and tolerating PO independently. Cystoscopy Cystoscopy was performed with a 70 degree cystoscope and distended with normal saline. Inspection of the bladder showed a normal-looking, blue dyed, smooth bladder mucosa with no evidence of injury, suture, puckering, or other abnormalities.? Both ureteral meatuses were visualized and were noted to be expelling urine in routine fashion.? Cystoscope was removed. Sponge, instrument and needle counts were correct x3, per nursing. The patient was awakened from general anesthesia and transferred to the PACU in stable condition. Condition: stable Disposition: same day Specimens:: Uterine body, cervix, bilateral fallopian tubes and ovaries Complications:: None
--- NOTE | 2025-01-06 14:32 | P.PNANES_ITS ---
[facility] Anesthesia Record Part II Anesthesia Record Part II Discharge Time: 10:15 Destination: Surgical Day Care (OP Surgery) PACU nurse assessment reviewed?: Yes Patient Condition:: Good Anesthesia Complications:: None Swallowing reflex intact?: Yes Airway Patency: Patent Cyanosis?: No Blood Pressure: 131/71 SaO2: 98 Respiratory Rate: 12 Pulse Rate: 63 Temperature: 97.9 F Mental Status: Alert & Oriented Pain level:: 0 Nausea and/or vomitting:: None Intake, IV Amount: 0 Hydration: Adequate
== END 2025-01-06 10:50 | disposition home or self-care (01) ==
PROVIDERS: PCP Family Medicine; Visit Provider Obstetrics & Gynecology
PROC: (CPT 58260; principal; 2025-01-06 07:30)
DX: N87.9 Dysplasia of cervix uteri, unspecified (principal); D25.1 Intramural leiomyoma of uterus; N93.9 Abnormal uterine and vaginal bleeding, unspecified
CPT/HCPCS: 58260; 58661; 86850; 96374; J3490; J0736; J1100; J1580; J2250; J2405; J3010

== ENCOUNTER 2025-03-03 08:13 | Outpatient (CLI) | payer OTHER, SELFPAY ==
--- NOTE | 2025-03-03 08:16 | XR_ITS ---
FINAL REPORT TECHNIQUE: Bone densitometry calculations of the lumbar spine and left hip were obtained. CLINICAL HISTORY: SCREENING COMPARISON: None FINDINGS: Using L1-4, the bone mineral density of the spine is 0.998 g/cm2, corresponding to T-score of -0.4 and a Z score of 1.2. This is within the range of normal. Using the left hip, the bone mineral density of the femoral neck is 0.73 g/cm2, corresponding to a T-score of -1.8 and a Z-score of -0.7. This is within the range of osteopenia. Using the right hip, the bone mineral density of the femoral neck is 0.714 g/cm?, corresponding to a T-score of -1.9 and a Z-score of -0.7. This is within the range of osteopenia. NOTE: T-score: Standard deviation compared with peak bone mass of young adult mean. *Following the recommendations of the International Society of Bone densitometry, classification of hip BMD is based on the lower of two T-scores; total hip or femoral neck. IMPRESSION: 1. Bone mineral density of the lumbar spine within the range of normal. 2. Bone mineral density of the bilateral femoral necks within the range of osteopenia. Reviewed, Interpreted and Dictated by Effie Priest MD Transcribed by Johana Ross Authenticated and [facility]
== END 2025-03-03 23:59 | disposition home or self-care (01) ==
LOC: RAD 08:14
PROVIDERS: PCP Family Medicine; Visit Provider Family Medicine
DX: M85.89 Other specified disorders of bone density and structure, multiple sites (principal)
CPT/HCPCS: 77080

== ENCOUNTER 2025-05-25 16:37 | Outpatient (CLI) | payer OTHER, SELFPAY ==
--- OUTSIDE RECORDS SUMMARY | 2022-01-23 08:37 | XMS_ITS | Encounter Summary ---
Author Organization [facility] Address [address] [place] [address] Care Team Providers Care Senior Structural Engineer Name Role Phone Javi Nguyen MD Primary Care Provider [phone] Reason for Referral * Diagnostic Imaging (Routine) - Closed Specialty Diagnoses / Procedures Referred By Contac t Referred To Contact Radiology Diagnoses Osteopenia of left femoral neck Procedures DEXA Bone Density Axial Zhou Yen MD [address] [place] [address] Phone: tel: fax: [facility] [address] [place] [id number] Phone: tel: fax: Referral ID Status Reason Start Date Expiration Date Visits Re quested Visits Authorized [id number] Closed 01/23/2022 01/23/2023 1 1 Reason for Visit * Diagnostic Imaging (Routine) - Closed Specialty Diagnoses / Procedures Referred By Contac t Referred To Contact Radiology Diagnoses Osteopenia of left femoral neck Procedures DEXA Bone Density Axial Zhou Yen MD [address] [place] [address] Phone: tel: fax: [facility] [place] [id number] Phone: tel: fax: Referral ID Status Reason Start Date Expiration Date Visits Re quested Visits Authorized [id number] Closed 01/23/2022 01/23/2023 1 1 Encounter Details Date Type Department Care Team (Latest Contact Info) Description 01/23/2022 8:37 AM EDT Hospital Encounter [facility] [place] [phone] Osteopenia of left femoral neck Social History Tobacco Use Types Packs/Day Years Used Date Smoking Tobacco: Never Passive Smoke Exposure: Past Smokeless Tobacco: Never Alcohol Use Standard Drinks/Week Comments Never 0 (1 standard drink = 0.6 oz pur e alcohol) Exercise Vital Sign Answer Date Recorde d On average, how many days pe r week do you engage in moderate to strenuous exercise (like a brisk walk)? 0 days 08/01/2023 On average, how many minutes do you engage in exercise at this level? 0 min 08/01/2023 Hunger Vital Sign Answer Date Recorded Within the past 12 months, y ou worried that your food would run out before you got the money to buy more. Never true 08/01/20 23 Within the past 12 months, t he food you bought just didn't last and you didn't have money to get more. Never true 08/01/2023 Abuse Screen Answer Date Recorded Feels Unsafe at Home or Work/School no 07/17/2023 Feels Threatened by Someone no 06/29 Does Anyone Try to Keep You From Having Contact with Others or Doing Things Outside Your Home? no 07/17/2023 Physical Signs of Abuse Present no 07/17/2023 Housing Stability Answer Date Recorded Current Living Arrangements home 01/2023 Potentially Unsafe Housing Conditions none 08/01/2023 Disabilities Answer Date Recorded Difficulty Concentrating, Remembering or Making Decisions no 07/31/2023 Difficulty Managing Errands Independently no 07/31/2023 Education Answer Date Recorded Help with school or training? Not on file Preferred Language Slovak 08/01/2023 Comments No Sex and Gender Information Value Date Recorded Sex Assigned at Female 02/14/2025 9:54 AM EDT Legal Sex Female 10:56 AM EDT Gender Identity Not on file Sexual Orientation Not on file documented as of this encounter Plan of Treatment Upcoming Encounters Date Type Department Care Team (Late st Contact Info) Description 06/12/2025 8:40 AM EDT Office Visit [facility] [address] [place] [phone] Verito Castañeda, TECH INTERN [address] [facility] [address] [place] [address] 08/21/2025 8:40 AM EDT Office Visit [facility] [address] [facility] [address] [place] [address] Tor Mackey MD [address] [facility] [address] [place], [place] [id number] documented as of this encounter Procedures Procedure Name Priority Date/Time Associated Diagnosis Comments DEXA BONE DENSITY AXIAL Routine 01/23/2022 9:02 AM EDT Osteopenia of left femoral neck documented in this encounter Results * DEXA Bone Density Axial (01/23/2022 9:02 AM EDT) Anatomical Region Laterality Modality Wrist, Hip, L-spine N/A Bone Density Narrative 03/24/2022 9:39 AM EDT DEXA consistent with osteopenia us Zhou Yen MD IMG DXA ORDERABLES Final Result documented in this encounter Visit Diagnoses Diagnosis Osteopenia of left femoral neck documented in this encounter Care Teams Senior Structural Engineer Relationship Specialty Start Date End Date Javi Nguyen MD [address] [address] [place] [address] PCP - General 07/14/15 documented as of this encounter
--- OUTSIDE RECORDS SUMMARY | 2025-01-30 05:30 | XMS_ITS ---
Author Organization [facility] Address [address] [place] [id number] Care Team Providers Care Provider Scribe Name Role Phone Mary Jo Nguyen Primary Care Provider Allergies Allergen (clinical drug ingredient) Drug/Non Drug Allergy documented on EMR Reaction Allergy Type Onset Date Status Penicillin Unknown Drug Allergy Active Results Component Value Reference Range Notes CBC Venipuncture (in house) Reviewed date:02/03/2025 01:01:34 PM Interpretation: Performing Lab: Notes/Report: wbc 8.4 3.5 - 10 lymph 18.7 15 - 50 mid 6.0 2 - 15 gran 75.3 35 - 80 rbc 4.18 3.5 - 5.5 hgb 12.1 11.5 - 16.5 hct 36.9 35 - 55 mcv 88.4 75 - 100 mch 29.0 25 - 35 mchc 32.8 31 - 38 platlet 369 100 - 400 P-Comprehensive Metabolic Pa maria fernanda (CMP) Reviewed date:02/04/2025 04:31:32 PM Interpretation:K 3.4, glu 101 alk phos 132 Performing Lab: Notes/Report: Test performed by [facility], [employer] [address] [place] [address] , [address], [place] [address] Hernesto Torres MD, Laundry Attendant CLIA: [id number] Sodium 142 135-145 mmol/L Potassium 3.4 3.5-5.3 mmol/L Chloride 102 97-108 mmol/L CO2 26 22-32 mmol/L Glucose 101 65-99 mg/dL BUN 11 8-23 mg/dL Creatinine 0.80 0.50-1.00 mg/dL Calcium 9.3 8.6-10.4 mg/dL eGFR by Creatinine 83 >59 mL/min/1.73m2 Protein 6.1 6.0-8.3 g/dL Albumin 3.8 3.5-5.3 g/dL Alkaline Phosphatase 132 35-121 IU/L ALT (SGPT) 16 <5-47 IU/L AST (SGOT) 18 <5-40 IU/L Bilirubin, Total 0.3 <0.2-1.2 mg/dL A/G Ratio 1.7 1.1-2.5 P-TSH Reviewed date:02/04/2025 04:31:32 PM Interpretation:Normal Performing Lab: Notes/Report: Test performed by [facility], [address] , [address], [place] [address] Hernesto Torres MD, Laundry Attendant CLIA: [id number] TSH 5.02 0.43-5.25 mU/L DEXA Hip and Spine (Not yet reviewed by provider) Interpretation:osteopenia Performing Lab: Notes/Report: osteopenia Dexa results osteopenia DEXA Hip and Spine (Not yet reviewed by provider) Interpretation:osteopenia Performing Lab: Notes/Report: osteopenia Dexa results osteopenia Mammogram Reviewed date:04/24/2025 02:25:35 PM Interpretation:Negative Performing Lab: Notes/Report: Negative result neg REASON FOR VISIT 2 month check, Needs labs, bone density screening, & mammogram due in February. Medications Medication SIG (Take, Route, Frequency, Duration) Notes Start Date End Date Status Metoclopramide HCl 5 MG Take 1 tablet by mouth twice daily; Duration: 90 Active Carvedilol 12.5 MG TAKE 1 & 1/2 (ONE & ONE-HALF) TABLETS BY MOUTH IN THE MORNING AND 1 TABLET IN THE EVENING; Duration: 90 Active Flecainide Acetate 50 MG 1 tab(s) orally Two times a day; Duration: 90 days Active Lexapro 5 MG 1 tab orally once a day Active traZODone HCl 50 MG 1 tablet at bedtime as needed Orally Once a day; Duration: 90 days Active Rosuvastatin Calcium 10 MG 1 tab(s) oral ly At Bed Time; Duration: 90 days Active Valsartan-hydroCHLOROthiazid e 320-25 MG 1 tab(s) orally once a day; Duration: 90 days Active Levothyroxine Sodium 75 MCG 1 tablet in the morning on an empty stomach Orally Once a day; Duration: 90 days Active Xyzal Allergy 24HR 5 MG 1 tab(s) orally once a day (in the evening); Duration: 90 days Active Diclofenac Sodium 3 % 1 application Exte rnally Twice a day 05/19/2024 Active Docusate Sodium 100 MG 2 capsule as need ed Orally Once a day; Duration: 30 day(s) 12/03/2023 Active Ubrelvy 100 MG 1 tab(s) 1 tab by mo ut may repeat in 2 hours if headache is still present Active Esomeprazole Magnesium 40 MG 1 cap(s) or ally once a day; Duration: 90 days 11/25/2021 Active Albuterol Sulfate HFA 108 (90 Base) MCG/ACT 1 puff as needed Inhaled every 4 hrs, prn 12/12/2023 Active B-12 1000 MCG 1 tab(s) orally once a day; Duration: 30 day(s) Active Ibuprofen 600 MG 1 tab(s) orally 4 ti mes a day prn 01/12/2016 Active Fluticasone Propionate 50 MCG/ACT 2 spray each nostril each nostril once a day 12/09/2019 Active Xarelto 20 MG 1 tab(s) orally once a day (in the evening); Duration: 30 day(s) Active Coenzyme Q10 200 MG as directed orally o nce a day; Duration: 90 days 11/25/2021 Active Osteo Bi-Flex One Per Day - 1 tablet twice a day Active Slow-Mag 71.5-119 MG 2 tablets Orally On ce a day; Duration: 30 day(s) Active Problems Problem Type SNOMED Code ICD Code Onset Dates Problem Status W/U Status Risk Notes Problem Fibrocystic breast disease (N60.19) Active confirmed Vital Signs Blood pressure systolic 122 mm Hg 01/31/20 25 Blood pressure diastolic 72 mm Hg 025 Heart Rate 63 /min 01/30/2025 Height 64.50 in 01/30/2025 Weight 187.6 lbs 01/30/2025 BMI 31.7 kg/m2 01/30/2025 Encounters Encounter Location Date Provider Diagnosis [facility] [address] [facility] [address] [place] [id number] 01/30/2025 Mary Jo Nguyen Essential hypertensi on I10 ; Osteopenia M85.80 ; Paroxysmal atrial fibrillation I48.0 ; Status post right knee replacement Z96.651 ; Acquired hypothyroidism E03.9 ; Fibrocystic breast disease N60.19 and Anemia associated with acute blood loss D62 Assessments Encounter Date Diagnosis (ICD Code) Assessment Notes Treatment Notes Treatment Clinical Notes Section Notes 01/30/2025 Essential hypertension (ICD-10 - I10) 01/30/2025 Osteopenia (ICD-10 - M85.80) 01/30/2025 Paroxysmal atrial fibrillation (ICD-10 - I48.0) 01/30/2025 Status post right knee replacement (ICD-10 - Z96.651) 01/30/2025 Acquired hypothyroidism (ICD-10 - E03.9) 01/30/2025 Fibrocystic breast disease (ICD-10 - N60.19) 01/30/2025 Anemia associated with acute blood loss (ICD-10 - D62) Plan Of Treatment Pending Test Test Name Order Date DEXA Hip and Spine 01/30/2025 Next Appt Details Follow Up: 5M, Reason: Provider Name:Mary Jo bolivar, 06/01/2025 01:30:00 PM, [address], [address], [place], [id number], Provider Name:Mary Jo Ferguson , 07/03/2025 09:30:00 AM, [address], [place], [id number], Progress Notes * JUAN ESPINOZAOB:1 11/21/1959 (64 yo F)Acc No.[id number]:01/30/2025 Progress Notes Patient: JUAN JUAREZ Provider: Mary Jo Nguyen M.D. :1960 A ge:64 Y S ex:Female Date:01/30/2025 Address:[address] [place], [place] [id number] Subjective: * Chief Complaints: * 1 . 2 month check. 2. Needs labs, bone density screening, & mammogram due in February.. * HPI: H PI: 64 year old female presents with c/o Patient is here today for?Pt is here today for a 2 month check up. Pt sts she is doing well and has no concerns at this time. Pt is fasting . * ROS: D ERMATOLOGY: no R jessica. n o H trenton. G ASTROENTEROLOGY: no N ausea. n o V omiting. n o D iarrhea.? U ROLOGY: no D ifficulty urinating. n o B lood in urine. * Medical History: H ypothyroidism, Allergies, Colonoscopy 1 polyp, 03/2008, Dexa Scan, 07/25/2011, Palpitations, Benign Hematuria, RT Humeral Head Avascular Necrosis , Calcium Score of 2, Small Hiatal Hernia, 06/26/2019, Echo-GXT with 102% Predicted Exercise Capacity, 02/2013. * Surgical History: T ubal Ligation , Bladder x 2 , Tonsillectomy , Colonoscopy 07/2014, RT Shoulder Replacement, Dr. Jerome 05/17/2015, right knee replacement, Dr. Mackey 07/31/2023, Hysteroscopy - Dr. Adrian 11/06/2023, THA-BSO, Dr. Adrian 01/06/2025. * Family History: F ather: alive, [place], heart disease. M other: , diabetes, thyroid problem, emphysema, obesity. S iblings: brother and sister with diabetes, brother with ETOHism. 2 brother(s) , 2 sister(s) . 1 daughter(s) . . * Social History: C URRENT TOBACCO USE S moking Status: Patient does NOT smoke. C affeine: no. Marital Status: . Past smoking status: no, Smoking status: Does not smoke, Former Smoker: No. Alcohol: no. * Medications: T aking Slow-Mag 71.5-119 MG Tablet Delayed Release 2 tablets Orally Once a day , Taking Osteo Bi-Flex One Per Day - Tablet 1 tablet twice a day , Taking Xarelto 20 MG Tablet 1 tab(s) orally once a day (in the evening) , Taking Coenzyme Q10 200 MG Capsule as directed orally once a day , Taking Ibuprofen 600 MG Tablet 1 tab(s) orally 4 times a day prn , Taking Fluticasone Propionate 50 MCG/ACT Suspension 2 spray each nostril each nostril once a day , Taking Ubrelvy 100 MG Tablet 1 tab(s) 1 tab by mouth may repeat in 2 hours if headache is still present , Taking Esomeprazole Magnesium 40 MG Capsule Delayed Release 1 cap(s) orally once a day , Taking Docusate Sodium 100 MG Capsule 2 capsule as needed Orally Once a day , Taking Albuterol Sulfate HFA 108 (90 Base) MCG/ACT Aerosol Solution 1 puff as needed Inhaled every 4 hrs, prn , Taking B-12 1000 MCG Tablet 1 tab(s) orally once a day , Taking Xyzal Allergy 24HR 5 MG Tablet 1 tab(s) orally once a day (in the evening) , Taking Diclofenac Sodium 3 % Gel 1 application Externally Twice a day , Taking Valsartan-hydroCHLOROthiazide 320-25 MG Tablet 1 tab(s) orally once a day , Taking Levothyroxine Sodium 75 MCG Tablet 1 tablet in the morning on an empty stomach Orally Once a day , Taking Rosuvastatin Calcium 10 MG Tablet 1 tab(s) orally At Bed Time , Taking traZODone HCl 50 MG Tablet 1 tablet at bedtime as needed Orally Once a day , Taking Flecainide Acetate 50 MG Tablet 1 tab(s) orally Two times a day , Taking Lexapro 5 MG Tablet 1 tab orally once a day , Taking Metoclopramide HCl 5 MG Tablet Take 1 tablet by mouth twice daily , Taking Carvedilol 12.5 MG Tablet TAKE 1 & 1/2 (ONE & ONE-HALF) TABLETS BY MOUTH IN THE MORNING AND 1 TABLET IN THE EVENING , Medication List reviewed and reconciled with the patient * Allergies: P enicillin. Objective: * Vitals: W t: 187.6, Temp: 98.6, BP: 122/72, HR: 63, Nurse: zafar, Ht: 64.50, BMI:31.7. * Examination: G eneral Examination: General Appearance: N AD. H EENT: u nremarkable.?Oral cavity: n o lesions, mucosa moist and WNL, no erythema. N bhanu: s upple, no lymphadenopathy. C hest: n ormal shape and expansion. H eart: R SR. L ungs: c lear to auscultation. N eurologic Exam: I ntact, gait normal. S kin: n ormal, no rash.?Peripheral pulses: n ormal . B ack: mild dorsal kyphosis. E xtremities:?no leg edema. Assessment: * Assessment: 1. E ssential hypertension - I10 (Primary) 2 . O steopenia - M85.80 ? 3 . P aroxysmal atrial fibrillation - I48.0 4 . S tatus post right knee replacement - Z96.651 5 . A cquired hypothyroidism - E03.9 6 . F ibrocystic breast disease - N60.19 7 . A nemia associated with acute blood loss - D62 Plan: * Treatment: Value Reference Range A /G Ratio 1.7 1.1-2.5 - * A lbumin 3.8 3.5-5.3 - g/dL * A lkaline Phosphatase 132 H 35-121 - IU/L * A LT (SGPT) 16 <5-47 - IU/L * A ST (SGOT) 18 <5-40 - IU/L * B ilirubin, Total 0.3 <0.2-1.2 - mg/dL * B UN 11 8-23 - mg/dL * C alcium 9.3 8.6-10.4 - mg/dL * C hloride 102 97-108 - mmol/L * C O2 26 22-32 - mmol/L * C reatinine 0.80 0.50-1.00 - mg/dL * G lucose 101 H 65-99 - mg/dL * P otassium 3.4 L 3.5-5.3 - mmol/L * S odium 142 135-145 - mmol/L * P rotein 6.1 6.0-8.3 - g/dL * e GFR by Creatinine 83 >59 - mL/min/1.73m2 * Sommer Dumont 02/04/2025 04:3 1:19 PM > see phone encounter ?LAB: CBC Venipuncture (in house) (Collection Date & Time - 01/30/2025)* Value Reference Range w bc 8.4 3.5 - 10 * l ymph 18.7 15 - 50 * m id 6.0 2 - 15 * g ran 75.3 35 - 80 * r bc 4.18 3.5 - 5.5 * h gb 12.1 11.5 - 16.5 * h ct 36.9 35 - 55 * m cv 88.4 75 - 100 * m ch 29.0 25 - 35 * m chc 32.8 31 - 38 * p latlet 369 100 - 400 * Argelia Orellana 01/30/2025 11:34 :06 AM > 2.?Osteopenia?Imaging: DEXA Hip and Spine (Performed Date - 03/03/2025)?osteopenia* Value Reference Range D exa results osteopenia * Dana Butler 02/25/2025 02:0 3:27 PM > no auth required; faxed to [facility] Scheduling March 03 @ 9:00 3.?Acquired hypothyroidism?LAB: P-TSH (Collection Date & Time - 01/30/2025 09:09 AM)?Normal* Value Reference Range T SH 5.02 0.43-5.25 - mU/L * Sommer Dumont 02/04/2025 04:3 1:19 PM > see phone encounter 4.?Fibrocystic breast disease?Imaging: Mammogram (Performed Date - 03/16/2025)?Negative* Value Reference Range r esult neg * Tests at [facility] to Dr. Nguyen and Dana Harley 01/30/2025 09:46:21 AM > faxed order to [facility] Katy Tompkins 04/24/2025 02:25:25 PM EDT > Patient informed of normal results. * Procedure Codes: 3 074F SYST BP LT 130 MM HG, 3078F DIAST BP < 80 MM HG, 52976 CBC WITH AUTO DIFF, 12461 CAPILLARY BLOOD DRAW * Follow Up: 5 M * Images: Billing Information: * Visit Code: 34921 Office Visit, Est Pt., Level 4. * Procedure Codes: 3074F SYST BP LT 130 MM HG. 3078F DIAST BP < 80 [place]. [address] CBC WITH AUTO DIFF. 96263 CAPILLARY BLOOD DRAW. * Electronic signature of Mary Jo Nguyen MD on 05/25/2025 at 04:40 PM EDT Sign off status: Pending * Provider: Mary Jo Nguyen M.D. Date: 0 01/30/2025 Generated for Adan griggs/Zoie/Candi on: 0 05/25/2025 04:40 PM EDT History and Physical Notes * HPI (History of Present Illness) Category Sub-Category Detail Notes Category Not es HPI Patient is here today for Pt is here today for a 2 month check up. Pt sts she is doing well and has no concerns at this time. Pt is fasting Examination Category Sub-Category Detail Notes Category Not es General Examination HEENT: unremarkable Heart: RSR Lungs: clear to auscultatio n Extremities: no leg edema General Appearance: NAD Skin: normal, no rash Neurologic Exam: Intact, gait normal Neck: supple, no lymphaden opathy Oral cavity: no lesions, mucosa m oist and WNL, no erythema Peripheral pulses: normal Back: mild dorsal kyphosis Chest: normal shape and exp ansion
--- OUTSIDE RECORDS SUMMARY | 2025-03-03 04:45 | XMS_ITS ---
Author Organization [facility] Address [address] [place] [id number] Care Team Providers Care Mold Closer Helper Name Role Phone Mary Jo Nguyen Primary Care Provider [phone] Results Component Value Reference Range Notes P-Basic Metabolic Panel (BMP ) Reviewed date:03/13/2025 04:25:51 PM Interpretation:Normal Performing Lab: Notes/Report: Test performed by [employer], [employer] [address] [place] [address] , [address], [place] [address] Hernesto Torres MD, Financial Services Representative CLIA: [id number] Sodium 141 135-145 mmol/L Potassium 4.0 3.5-5.3 mmol/L Chloride 101 97-108 mmol/L CO2 28 22-32 mmol/L Glucose 103 65-99 mg/dL BUN 14 8-23 mg/dL Creatinine 0.93 0.50-1.00 mg/dL Calcium 9.8 8.6-10.4 mg/dL eGFR by Creatinine 69 >59 mL/min/1.73m2 REASON FOR VISIT blood work Medications Medication SIG (Take, Route, Frequency, Duration) Notes Start Date End Date Status Xarelto 20 MG 1 tab(s) orally once a day (in the evening); Duration: 30 day(s) Active Ibuprofen 600 MG 1 tab(s) orally 4 ti mes a day prn 01/12/2016 Active Coenzyme Q10 200 MG as directed orally o nce a day; Duration: 90 days 11/25/2021 Active Ubrelvy 100 MG 1 tab(s) 1 tab by mo [facility] may repeat in 2 hours if headache is still present Active Fluticasone Propionate 50 MCG/ACT 2 spray each nostril each nostril once a day 12/09/2019 Active Osteo Bi-Flex One Per Day - 1 tablet twice a day Active Slow-Mag 71.5-119 MG 2 tablets Orally On ce a day; Duration: 30 day(s) Active Potassium Chloride ER 10 MEQ 1 tablet wi th food Orally Once a day; Duration: 30 days 02/19/2025 Active Valsartan-hydroCHLOROthiazid e 320-25 MG Take 1 tablet by mouth once daily; Duration: 90 Active Levothyroxine Sodium 75 MCG TAKE 1 TABLE T BY MOUTH ONCE DAILY IN THE MORNING ON AN EMPTY STOMACH; Duration: 90 Active Lexapro 5 MG 1 tab orally once a day Active Flecainide Acetate 50 MG 1 tab(s) orally Two times a day; Duration: 90 days Active Rosuvastatin Calcium 10 MG TAKE 1 TABLET BY MOUTH ONCE DAILY AT BEDTIME; Duration: 90 Active Carvedilol 12.5 MG TAKE 1 & 1/2 (ONE & ONE-HALF) TABLETS BY MOUTH IN THE MORNING AND 1 TABLET IN THE EVENING; Duration: 90 Active Metoclopramide HCl 5 MG Take 1 tablet by mouth twice daily; Duration: 90 Active Diclofenac Sodium 3 % 1 application Exte rnally Twice a day 05/19/2024 Active Xyzal Allergy 24HR 5 MG 1 tab(s) orally once a day (in the evening); Duration: 90 days Active B-12 1000 MCG 1 tab(s) orally once a day; Duration: 30 day(s) Active Albuterol Sulfate HFA 108 (90 Base) MCG/ACT 1 puff as needed Inhaled every 4 hrs, prn 12/12/2023 Active traZODone HCl 50 MG 1 tablet at bedtime as needed Orally Once a day; Duration: 90 days Active Docusate Sodium 100 MG 2 capsule as need ed Orally Once a day; Duration: 30 day(s) 12/03/2023 Active Esomeprazole Magnesium 40 MG 1 cap(s) or ally once a day; Duration: 90 days 11/25/2021 Active Encounters Encounter Location Date Provider Diagnosis [facility] [address] [place] [id number] 03/03/2025 Mary Jo Nguyen Hypokalemia E87.6 Assessments Encounter Date Diagnosis (ICD Code) Assessment Notes Treatment Notes Treatment Clinical Notes Section Notes 03/03/2025 Hypokalemia (ICD-10 - E87.6) Plan Of Treatment Next Appt Details Provider Name:Mary Jo Ferguson er, 06/01/2025 01:30:00 PM, [address], [address], [place], [phone], Provider Name:Mary Jo Ferguson er, 07/03/2025 09:30:00 AM, [address], [address], [place], [phone], Progress Notes * NOE JUAN ConnOB:1 11/21/1959 (64 yo F)Acc No.[id number]:03/03/2025 Patient: JUAN JUAREZ Provider: Mary Jo Nguyen M.D. :1960 A ge:64 Y S ex:Female Date:03/03/2025 Address:[address] [place] [address] [facility], [id number] Subjective: * Chief Complaints: * 1 . Blood work. * Medical History: * Medications: T aking Slow-Mag 71.5-119 MG [...] application Externally Twice a day , Taking traZODone HCl 50 MG Tablet [...] AND 1 TABLET IN THE EVENING , Taking Rosuvastatin Calcium 10 MG Tablet TAKE 1 TABLET BY MOUTH ONCE DAILY AT BEDTIME , Taking Levothyroxine Sodium 75 MCG Tablet TAKE 1 TABLET BY MOUTH ONCE DAILY IN THE MORNING ON AN EMPTY STOMACH , Taking Valsartan-hydroCHLOROthiazide 320-25 MG Tablet Take 1 tablet by mouth once daily , Taking Potassium Chloride ER 10 MEQ Tablet Extended Release 1 tablet with food Orally Once a day , Medication List reviewed and reconciled with the patient Objective: * Vitals: Assessment: * Assessment: 1. H ypokalemia - E87.6 Plan: * Treatment: Value Reference Range B UN 14 8-23 - mg/dL * C alcium 9.8 8.6-10.4 - mg/dL * C hloride 101 97-108 - mmol/L * C O2 28 22-32 - mmol/L * C reatinine 0.93 0.50-1.00 - mg/dL * G lucose 103 H 65-99 - mg/dL * P otassium 4.0 3.5-5.3 - mmol/L * S odium 141 135-145 - mmol/L * e GFR by Creatinine 69 >59 - mL/min/1.73m2 * Katy Grimes 03/13/2025 04 :25:44 PM > Patient informed of normal results. * Images: Billing Information: * Visit Code: * Procedure Codes: * Electronic signature of Mary Jo Nguyen MD on 05/25/2025 at 04:40 PM EDT Sign off status: Pending * Provider: Mary Jo Nguyen M.D. Date: 0 03/03/2025 Generated for Adan griggs/Zoie/Candi on: 0 05/25/2025 04:40 PM EDT
--- OUTSIDE RECORDS SUMMARY | 2025-04-17 08:50 | XMS_ITS | Encounter Summary ---
[facility] Address [address] [place] [address] Care Team Providers Care Home Care Associate Name Role Phone Javi Nguyen MD Primary Care Provider [phone] Reason for Visit * Reason Comments Follow-up 6 month follow-up Pr imary osteoarthritis of left knee Encounter Details Date Type Department Care Team (Late st Contact Info) Description 04/17/2025 8:50 AM EDT Office Visit [facility] [address] [address] Tor Mackey MD [address] [place], [place] [id number] Primary osteoarthritis of left knee (Primary Dx) Social History Tobacco Use Types Packs/Day Years Used Date Smoking Tobacco: Never Passive Smoke Exposure: Past Smokeless Tobacco: Never Tobacco Cessation:Counseling Given: Not Answered Alcohol Use Standard Drinks/Week Comments Never 0 [...] or training? Not on file Preferred Language Ugandan 08/01/2023 Comments No Sex and Gender Information Value Date Recorded Sex Assigned at Female 02/14/2025 9:54 AM EDT Legal Sex Female 10:56 AM EDT Gender Identity Not on file Sexual Orientation Not on file documented as of this encounter Last Filed Vital Signs Vital Sign Reading Time Taken Comments Blood Pressure 132/78 04/17/2025 8:34 AM EDT Pulse - - Temperature - - Respiratory Rate - - Oxygen Saturation - - Inhaled Oxygen Concentration - - Weight 85.7 kg (189 lb) 04/17/2025 8:34 AM EDT Height 165.1 cm (5' 5 ) 04/17/2025 8:34 AM EDT Body Mass Index 31.45 04/17/2025 8:34 AM EDT documented in this encounter Progress Notes * Tor Mackey MD - 04/17/2025 8:50 AM EDT Images from the original note were not included. [facility] Note Subjective Chief Complaint Patient presents with Follow-up 6 month follow-up Primary osteoarthritis of left knee HPI It has been 6 month(s) since Ms. Espinoza's last visit. She returns to clinic today for follow-up of left knee pain. The issue has been ongoing for 10 year(s). She rates her pain a 5/10 on the pain scale. Previous/current treatments: NSAIDS, physical therapy, and steroid injection (last injection 10/17/24). Current symptoms: pain, swelling, popping, grinding, stiffness, and giving way/buckling. The pain is worse with walking, standing, sitting, climbing stairs, working, and any movement of the joint; pain medication and/or NSAID improve the pain. Overall, she is doing worse. She would like a repeat injection today. She is not interested in surgical intervention at this time. I have reviewed the following portions of the patient's history and agree with: History of Present Illness and Review of Systems Patient Active Problem List Diagnosis Chest pain syndrome Hypothyroidism Allergic rhinitis Osteoporosis Hyperlipidemia PAF (paroxysmal atrial fibrillation) Essential hypertension Dyslipidemia Atrial tachycardia Primary osteoarthritis of left knee Degenerative arthritis of right knee S/P total knee arthroplasty, right Hypokalemia, replaced Acute postoperative pain Past Medical History: Diagnosis Date Abnormal ECG 02/2019 Allergic rhinitis Intermittent Arthritis Atrial fibrillation Chest pain syndrome Fall Recent fall without loss of consciousness with right humerus fracture with nonoperative repair -- data deficit, March 2014. Right shoulder replacement required April [address] Jerome. GERD (gastroesophageal reflux disease) Headache syndrome Progressive with intermittent and apparent abnormal MRI/MRA x2, [facility] , Hyperlipidemia Hypertension Hypothyroidism Chronic- On replacement therapy Intermittent atrial fibrillation Knee swelling 2014 Osteoporosis Periarthritis of shoulder 2014 Remote with toxemia Sleep apnea Solitary nodule of right lobe of thyroid Prominent right thyroid lobe. Possible goiter with thyroid ultrasound, report pending- data deficit, winter 2008 Urinary tract infection Intermittent recurrent urinary tract infections with subsequent urethral dilatation x2. Wears eyeglasses Past Surgical History: Procedure Laterality Date COLONOSCOPY HYSTERECTOMY N/A 01/06/2025 Dr. Karissa Adrian at [facility] OTHER SURGICAL HISTORY Right shoulder replacement required April [address] Jerome. SHOULDER SURGERY 2014 TONSILLECTOMY AND ADENOIDECTOMY 1999 TOTAL KNEE ARTHROPLASTY Right 07/31/2023 Procedure: TOTAL KNEE ARTHROPLASTY WITH CORI ROBOT - RIGHT; Surgeon: Tor Mackey MD; Location:[facility]; Service: Robotics - Ortho; Laterality: Right; TUBAL ABDOMINAL LIGATION Bilateral 1994 Family History Problem Relation Age of Onset COPD Mother Clotting disorder Father Alcohol abuse Father Hypertension Father No Known Problems Sister Alcohol abuse Brother Colon cancer Maternal Grandmother No Known Problems Maternal Grandfather Heart attack Paternal Grandmother Heart failure Paternal Grandmother Breast cancer Paternal Grandmother 70's or 80's Cancer Paternal Grandmother Breast Alcohol abuse Paternal Grandfather Ovarian cancer Neg Hx Social History Socioeconomic History Marital status: Tobacco Use Smoking status: Never Passive exposure: Past Smokeless tobacco: Never Vaping Use Vaping status: Never Used Substance and Sexual Activity Alcohol use: Never Drug use: Never Sexual activity: Yes Partners: Male control/protection: Tubal ligation, Hysterectomy Current Outpatient Medications on File Prior to Visit Medication Sig Dispense Refill Acetaminophen Extra Strength 500 MG tablet TAKE ONE TABLET BY MOUTH EVERY 6 HOURS NEEDED FOR FEVER OR pain albuterol sulfate HFA 108 (90 Base) MCG/ACT inhaler Inhale 2 puffs Every 4 (Four) Hours As Needed for Wheezing. carvedilol (COREG) 12.5 MG tablet Take 1 tablet by mouth Take As Directed. 18.75 mg morning 12.5 mgevening dose Cholecalciferol (VITAMIN D-3 PO) Take 50 mcg by mouth Daily. Co-Enzyme Q10 200 MG capsule Take 1 capsule by mouth Daily. Cyanocobalamin (B-12) 1000 MCG capsule Daily. docusate sodium (COLACE) 100 MG capsule TAKE 2 CAPSULES BY MOUTH ONCE DAILY NEEDED escitalopram (LEXAPRO) 5 MG tablet Take 1 tablet by mouth Daily. esomeprazole (nexIUM) 40 MG capsule Take 1 capsule by mouth Daily. ferrous sulfate 140 (45 Fe) MG tablet controlled-release tablet Take 1 tablet by mouth Daily With Breakfast. flecainide (TAMBOCOR) 50 MG tablet TAKE ONE TABLET BY MOUTH TWICE A DAY (Patient taking differently: Take 1 tablet by mouth 2 (Two) Times a Day.) 180 tablet 0 fluticasone (FLONASE) 50 MCG/ACT nasal spray Administer 2 sprays into the nostril(s) as directed byprovider As Needed for Rhinitis or Allergies. Vxizihsbubb-Djtcdzgsb-Qow C-Mn (GLUCOSAMINE 1500 COMPLEX PO) Take 1 capsule by mouth 2 (Two) Times a Day. ibuprofen (ADVIL,MOTRIN) 800 MG tablet TAKE ONE TABLET BY MOUTH EVERY 8 HOURS NEEDED FOR PAIN --TAKE WITH FOOD-- levocetirizine (XYZAL) 5 MG tablet Take 1 tablet by mouth Every Evening. levothyroxine (SYNTHROID, LEVOTHROID) 75 MCG tablet Take 1 tablet by mouth Daily. magnesium cl-calcium carbonate (Slow-Mag) 71.5-119 MG tablet delayed-release tablet Take by mouth Daily. metoclopramide (REGLAN) 5 MG tablet Take 1 tablet by mouth 2 (two) times a day. Pt reports she usually takes only once a day multivitamin (THERAGRAN) tablet tablet Take 1 tablet by mouth Daily. ondansetron ODT (ZOFRAN-ODT) [address] 1 tablet on the tongue As Needed for Nausea or Vomiting. potassium chloride 10 MEQ CR tablet Daily. rivaroxaban (Xarelto) 20 MG tablet Take 1 tablet by mouth Daily. 90 tablet 3 rosuvastatin (CRESTOR) 10 MG tablet Take 1 tablet by mouth Daily. simethicone (MYLICON) 125 MG chewable tablet 1 tablet. traZODone (DESYREL) 50 MG tablet Take 1 tablet by mouth. ubrogepant 100 MG tablet Take 1 tablet by mouth As Needed (migraine). valsartan-hydrochlorothiazide (DIOVAN-HCT) 320-25 MG per tablet Take 1 tablet by mouth Daily. 30 tablet 4 No current facility-administered medications on file prior to visit. Allergies Allergen Reactions Ramipril Anaphylaxis Penicillin G Unknown - Low Severity Diclofenac Swelling Increased blood pressure and swelling Penicillins Other (See Comments) Reaction unknown Has recently taken cephalosporin no reaction Review of Systems Constitutional: Negative for activity change, appetite change, chills, diaphoresis, fatigue, fever and unexpected weight change. HENT: Negative for congestion, dental problem, drooling, ear discharge, ear pain, facial swelling, hearing loss, mouth sores, nosebleeds, postnasal drip, rhinorrhea, sinus pressure, sneezing, sore throat, tinnitus, trouble swallowing and voice change. Eyes: Negative for photophobia, pain, discharge, redness, itching and visual disturbance. Respiratory: Negative for apnea, cough, choking, chest tightness, shortness of breath, wheezing andstridor. Cardiovascular: Negative for chest pain, palpitations and leg swelling. Gastrointestinal: Negative for abdominal distention, abdominal pain, anal bleeding, blood in stool,constipation, diarrhea, nausea, rectal pain and vomiting. Endocrine: Negative for cold intolerance, heat intolerance, polydipsia, polyphagia and polyuria. Genitourinary: Negative for decreased urine volume, difficulty urinating, dysuria, enuresis, flank pain, frequency, genital sores, hematuria and urgency. Musculoskeletal: Positive for arthralgias. Negative for back pain, gait problem, joint swelling, myalgias, neck pain and neck stiffness. Skin: Negative for color change, pallor, rash and wound. Allergic/Immunologic: Negative for environmental allergies, food allergies and immunocompromised state. Neurological: Negative for dizziness, tremors, seizures, syncope, facial asymmetry, speech difficulty, weakness, light-headedness, numbness and headaches. Hematological: Negative for adenopathy. Does not bruise/bleed easily. Psychiatric/Behavioral: Negative for agitation, behavioral problems, confusion, decreased concentration, dysphoric mood, hallucinations, self-injury, sleep disturbance and suicidal ideas. The patientis not nervous/anxious and is not hyperactive. Objective Physical Exam BP 132/78 Ht 165.1 cm (65 ) Wt 85.7 kg (189 lb) BMI 31.45 kg/m?? Body mass index is 31.45 kg/m??. General: Mental Status: Alert Appearance: Cooperative, in no acute distress Build and Nutrition: Well-nourished well-developed female Orientation: Alert and oriented to person, place and time Posture: Normal Gait: Nonantalgic Integument: Left knee: No skin lesions, no rash, no ecchymosis Lower Extremities: Left Knee: Tenderness: Medial/lateral joint line tenderness Effusion: None Swelling: None Crepitus: Positive Range of motion: Extension: 5?? Flexion: 110?? Instability: No varus laxity, no valgus laxity, negative anterior drawer Deformities: Valgus Imaging/Studies Imaging Results (Last 24 Hours) No results found for the last 24 hours. No new imaging today. Assessment and Plan Diagnoses and all orders for this visit: 1. Primary osteoarthritis of left knee (Primary) - - Large Joint Arthrocentesis: L knee 1. Primary osteoarthritis of left knee I reviewed my findings with the patient. She would like a repeat injection for her left knee today,and this was provided. She is not interested in surgical intervention at this time. I will see romero in 4 months, but sooner for any problems. Procedure Note: The potential benefits of performing a therapeutic left knee joint injection, as well as potential risks (including, but not limited to infection, swelling, pain, bleeding, bruising, nerve/blood vessel damage, skin color changes, transient elevation in blood glucose levels, and fat atrophy) were discussed with the patient. After informed consent, timeout procedure was performed, and the skin on the left knee was prepped with chlorhexidine soap and alcohol, after which ethyl chloride was appliedto the skin at the injection site. Via the anterolateral approach, 1ml of Kenalog 40mg/ml mixed with 4ml 0.5% ropivacaine plain was injected into the knee joint. The patient tolerated the procedure we ll, experiencing 55% improvement a few minutes following the injection. There were no complications. Band-Aid was applied to the injection site. Post- procedural instructions were given to the patientand/or their caregiver. Return in about 4 months (around 08/17/2025). Tor Mackey MD 04/17/25 09:33 EDT Dictated Utilizing [employer] Dictation * Racheal Dennis - 04/17/2025 8:50 AM EDTAssociated Order(s): - Large Joint Arthrocentesis: L knee Procedure - Large Joint Arthrocentesis: L knee on 04/17/2025 9:08 AM Indications: pain Details: 21 G needle, anterolateral approach Medications: 40 mg triamcinolone acetonide 40 MG/ML; 4 mL ropivacaine 0.5 % Outcome: tolerated well, no immediate complications Procedure, treatment alternatives, risks and benefits explained, specific risks discussed. Consent was given by the patient. Immediately prior to procedure a time out was called to verify the correctpatient, procedure, equipment, technical support assistant and site/side marked as required. Patient was prepped and draped in the usual sterile fashion. documented in this encounter Plan of Treatment Upcoming Encounters Date Type Department Care Team (Late st Contact Info) Description 06/12/2025 8:40 AM EDT Office Visit [facility] [address] [facility] [address] [place] [address] Verito Castañeda, SURVEYING OR SPATIAL SCIENCE TECHNICIAN [address] [place] [address] 08/21/2025 8:40 AM EDT Office Visit [facility] [address] [place] [address] Tor Mackey MD [address] [facility] [address] [place] [address] documented as of this encounter Procedures Procedure Name Priority Date/Time Associated Diagnosis Comments GA ARTHROCENTESIS ASPIR&/INJ MAJOR JT/BURSA W/O US Routine 04/17/2025 9:08 AM EDT Primary osteoarthritis of left knee documented in this encounter Results * GA ARTHROCENTESIS ASPIR&/INJ MAJOR JT/BURSA W/O US (04/17/2025 9:08 AM EDT) Narrative Racheal Dennis - 04/17/2025 9:08 AM EDT Racheal Dennis 04/17/2025 9:33 AM - Large Joint Arthrocentesis: L knee on 04/17/2025 9:08 AM Indications: pain Details: 21 G needle, anterolateral approach Medications: 40 mg triamcinolone acetonide 40 MG/ML; 4 mL ropivacaine 0.5 % Outcome: tolerated well, no immediate complications Procedure, treatment alternatives, risks and benefits explained, specific risks discussed. Consent was given by the patient. Immediately prior to procedure a time out was called to verify the correct patient, procedure, equipment, technical support assistant and site/side marked as required. Patient was prepped and draped in the usual sterile fashion. us Tor Mackey MD PROCEDURE/MINOR SURGICAL ORDER [place] Final Result documented in this encounter Visit Diagnoses Diagnosis Primary osteoarthritis of left knee- Primary documented in this encounter Administered Medications Inactive Administered Medications - up to 3 most recent administrations Medication Order MAR Action Action Date Dose Rate Site ropivacaine (NAROPIN) 0.5 % injection 4 mL 4 mL, One-Time Injection, Starting on Sun04/17/25 at 0908, For 1 doseIndications:Primary osteoarthritis of left knee Given 04/17/2025 9:08 AM EDT 4 mL Knee Left triamcinolone acetonide (KENALOG-40) injection 40 mg 40 mg, One-Time Injection, Starting on Sun04/17/25 at 0908, For 1 doseIndications:Primary osteoarthritis of left knee Given 04/17/2025 9:08 AM EDT 40 mg Knee Left documented in this encounter Care Teams Home Care Associate Relationship Specialty Start Date End Date Javi Nguyen MD [facility] [address] [facility] [address] [place] [address] PCP - General 07/14/15 documented as of this encounter
--- OUTSIDE RECORDS SUMMARY | 2025-05-25 16:40 | XMS_ITS | Clinical Summary ---
Author Organization [facility] Address [address] [place] [address] Care Team Providers Care Manager Car Name Role Phone Javi Nguyen MD Primary Care Provider [phone] Allergies Active Allergy Reactions Criticality Noted Date Comments Diclofenac Swelling Low 01/02/2017 Increased blood pressure and swelling Penicillin G Unknown - Low Severity 08/08/2024 Penicillins Other (See Comments) Low 01/02/2017 Reaction unknown Has recently taken cephalosporin no reaction Ramipril Anaphylaxis High 12/19/2019 Medications fluticasone (FLONASE) 50 MCG/ACT nasal spray Administer 2 sprays into the nostril(s) as directed by provider As Needed for Rhinitis or Allergies. 02/09/20 17 Active albuterol sulfate HFA 108 (90 Base) MCG/ACT inhaler Inhale 2 puffs Every 4 (Four) Hours As Needed for Wheezing. Active metoclopramide (REGLAN) 5 MG tablet Take 1 tablet by mouth 2 (two) times a day. Pt reports she usually takes only once a day Active valsartan-hydrochl orothiazide (DIOVAN-HCT) 320-25 MG per tablet Take 1 tablet by mouth Daily. 30 tablet 4 11/08/19 21 Active Glucosamine-Chondr oit-Vit C-Mn (GLUCOSAMINE 1500 COMPLEX PO) Take 1 capsule by mouth 2 (Two) Times a Day. Active rosuvastatin (CRESTOR) 10 MG tablet Take 1 tablet by mouth Daily. 11/25/19 22 Active flecainide (TAMBOCOR) 50 MG tablet TAKE ONE TABLET BY MOUTH TWICE A DAY 180 tablet 01/03/20 22 Active Additional Information Patient taking differently: 50 mg Oral 2 Times Daily, Informant: Self, Reported on 04/17/2025 Cholecalciferol (VITAMIN D-3 PO) Take 50 mcg by mouth Daily. Active Co-Enzyme Q10 200 MG capsule Take 1 capsule by mouth Daily. Active ondansetron ODT (ZOFRAN-ODT) [address] 1 tablet on the tongue As Needed for Nausea or Vomiting. 07/15/20 22 Active ubrogepant 100 MG tablet Take 1 tablet by mouth As Needed (migraine). 07/06/20 22 Active escitalopram (LEXAPRO) 5 MG tablet Take 1 tablet by mouth Daily. 01/18/20 23 Active carvedilol (COREG) 12.5 MG tablet Take 1 tablet by mouth Take As Directed. 18.75 mg morning 12.5 mg evening dose 01/14/20 23 Active esomeprazole (nexIUM) 40 MG capsule Take 1 capsule by mouth Daily. 01/16/20 23 Active levocetirizine (XYZAL) 5 MG tablet Take 1 tablet by mouth Every Evening. 01/20/20 23 Active ferrous sulfate 140 (45 Fe) MG tablet controlled-release tablet Take 1 tablet by mouth Daily With Breakfast. Active multivitamin (THERAGRAN) tablet tablet Take 1 tablet by mouth Daily. Active docusate sodium (COLACE) 100 MG capsule TAKE 2 CAPSULES BY MOUTH ONCE DAILY NEEDED 01/10/20 24 Active rivaroxaban (Xarelto) 20 MG tablet Take 1 tablet by mouth Daily. 90 tablet 3 06/11/20 24 Active levothyroxine (SYNTHROID, LEVOTHROID) 75 MCG tablet Take 1 tablet by mouth Daily. Active traZODone (DESYREL) 50 MG tablet Take 1 tablet by mouth. Active magnesium cl-calcium carbonate (Slow-Mag) 71.5-119 MG tablet delayed-release tablet Take by mouth Daily. Active Cyanocobalamin (B-12) 1000 MCG capsule Daily. Active Acetaminophen Extra Strength 500 MG tablet TAKE ONE TABLET BY MOUTH EVERY 6 HOURS NEEDED FOR FEVER OR pain 01/07/20 25 Active ibuprofen (ADVIL,MOTRIN) 800 MG tablet TAKE ONE TABLET BY MOUTH EVERY 8 HOURS NEEDED FOR PAIN --TAKE WITH FOOD-- 01/07/20 25 Active potassium chloride 10 MEQ CR tablet Daily. 02/20/20 25 Active simethicone (MYLICON) 125 MG chewable tablet 1 tablet. 01/07/20 25 Active Active Problems Problem Noted Date Diagnosed Date Hypokalemia, replaced 08/01/2023 Acute postoperative pain 08/01/2023 S/P total knee arthroplasty, right 07/31/2023 Degenerative arthritis of right knee 05/23/2023 Primary osteoarthritis of left knee 07/28/2020 Atrial tachycardia 03/04/2019 Dyslipidemia 12/13/2018 PAF (paroxysmal atrial fibrillation) 10/11/2017 Overview (10/18/2017): 24 hour holter 08/29/17: PAF Chadsvasc 2 (female, HTN) Echocardiogram 10/17/17: EF 55%, grade 1 diastolic dysfunction, mild concentric LVH, mildly enlarged left atrium, mild MR and TR, RVSP 36 mmHg Essential hypertension 10/11/2017 Hyperlipidemia 03/02/2017 Chest pain syndrome Overview (01/02/2017): 1. History of recent progressive chest pain syndrome: a. Remote CCS class II-III symptoms with acceptable EKG and chest x-ray with few cardiovascular disease risk factors, abnormal Holter monitor demonstrating occasional isolated atrial and ventricular ectopy with abnormal combination Doppler echocardiogram demonstrating probable prominent intra-atrial septal aneurysm with possible PFO versus secundum ASD, October 2008. b. Acceptable transesophageal echocardiogram, December 2008, with residual class I symptoms. c. Class I symptoms with acceptable echocardiographic GXT, 102% predicted exercise capacity, February 2013. d. Residual class I symptoms e. Possibly musculoskeletal Hypothyroidism Overview (01/02/2017): Chronic- On replacement therapy Allergic rhinitis Overview (01/02/2017): Intermittent Osteoporosis Encounters Date Type Department Care Team Description 04/17/2025 8:50 AM EDT Office Visit [facility] [address] [facility] [address] [place] [address] Tor Mackey MD Primary osteoarthritis of left knee (Primary Dx) 04/17/2025 Travel 03/18/2025 Documentation [facility] [address] [place] [address] Lashell Hays 03/16/2025 10:13 AM EDT - 03/16/2025 11:59 PM EDT Hospital Encounter [facility]TRASOUND [place] [address] [facility] [address] [place] [address] Fibrocystic breast disease (FCBD), unspecified laterality Discharge Disposition: Home or Self Care 03/16/2025 8:51 AM EDT - 03/16/2025 11:59 PM EDT Hospital Encounter [facility]AMMOGRAPHY [place] [address] [facility] [address] [place] [address] Fibrocystic breast disease (FCBD), unspecified laterality Discharge Disposition: Home or Self Care 03/16/2025 Travel 03/04/2025 Results Follow-Up [facility] CANCER RISK ASSESSMENT [address] [place] [address] Lashell Hays from Last 3 Months Immunizations Immunization Administration Dates Next Due COVID-19 (PFIZER) Purple Cap Monovalent 08/27/20,02/24/2021,01/27/2021 Family History Medical History Relation Name Comments Alcohol abuse Brother Alcohol abuse Father Juliano Rush Clotting disorder Father Juliano Rush Hypertension Father Juliano Rush No Known Problems Maternal Grandfather Colon cancer Maternal Grandmother COPD Mother Alcohol abuse Paternal Grandfather Breast cancer Paternal Grandmother Rosario Torresell 70's or 80's Cancer Paternal Grandmother Rosario Torresell Breast Heart attack Paternal Grandmother Rosario Stuart Heart failure Paternal Grandmother Rosario Torresell No Known Problems Sister Ovarian cancer Neg Hx Relation Name Status Comments Brother Father Juliano Rush Alive Maternal Grandfather Maternal Grandmother Mother (Age 60) Paternal Grandfather Paternal Grandmother Rosario Davidson (Age 96) Sister Alive Social History Tobacco Use Types Packs/Day Years [...] or training? Not on file Preferred Language Serbian 08/01/2023 Comments No Sex and Gender Information Value Date Recorded Sex Assigned at Female 02/14/2025 9:54 AM EDT Legal Sex Female 10:56 AM EDT Gender Identity Not on file Sexual Orientation Not on file Last Filed Vital Signs Vital Sign Reading Time Taken Comments Blood Pressure 132/78 04/17/2025 8:34 AM EDT Pulse 61 12/12/2024 9:19 AM EST Temperature 37.1 C (98.8 F) 08/01/2023 3:49 PM EDT Respiratory Rate 18 08/01/2023 3:49 PM EDT Oxygen Saturation 95% 12/12/2024 9:19 AM EST Inhaled Oxygen Concentration - - Weight 85.7 kg (189 lb) 04/17/2025 8:34 AM EDT Height 165.1 cm (5' 5 ) 04/17/2025 8:34 AM EDT Body Mass Index 31.45 04/17/2025 8:34 AM EDT Plan of Treatment Upcoming Encounters Date Type Department Care Team (Late st Contact Info) Description 06/12/2025 8:40 AM EDT Office Visit [facility] CARDIOLOGY [address] [facility] [address] [place] [address] Verito Castañeda, DRAWER IN HAND [address] [facility] [address] [place], [place] [id number] 08/21/2025 8:40 AM EDT Office Visit [facility]THOPEDICS [facility]TS MEDICINE [address] [facility] [address] [place] [address] Tor Mackey MD [address] [facility] [address] [place], [place] [id number] Health Maintenance Due Date Last Done Comments Annual Gynecologic Pelvic an d Breast Exam 1961 LIPID PANEL 1961 TDAP/TD VACCINES (1 - Tdap) 1980 COLOGUARD 2006 COLON CANCER SCREENING 5 YEA R SIGMOIDOSCOPY 2006 COLONOSCOPY [address] CANCER SCREENING 2006 CT COLONOGRAPHY 2006 FECAL OCCULT BLOOD TEST 2006 FIT Testing (1 year) 2006 ANNUAL PHYSICAL 03/02/2017 HEPATITIS C SCREENING 03/02/2017 ZOSTER VACCINE (2 of 3) 12/19/2021 10/24/2021, 04/18 COVID-19 Vaccine ( - 2023-2 5 season) 2024 08/27/2021, 02/24/2021, 01/27/2021 INFLUENZA VACCINE 07/29/2025 08/23/2022, , 08/19/2019, Additional history exists MAMMOGRAM 03/16/2027 03/16/2025, 02/26, 01/25/2023, Additional history exists Pneumococcal Vaccine 50+ Completed 04/10/2022, 07/31 Medical Devices Implanted Type Area Drawing Kiln Supervisor Device Identifier Shelf Expiration Date Model / Serial / Lot Right Shoulder Replacement Implant Cmt Bone [place] R Hi/Visc 1x40 - [id number] Implanted:Qty: 2 on 07/31/2023 by Tor Mackey MD at [facility] Implant Right: Knee [employer] [id number] 11/28/2027 [id number] / / [id number] Dev Contrl Tiss Stratafix Spiral Mncryl Ud 3/0 Pls 60cm - [id number] Implanted:Qty: 1 on 07/31/2023 by Tor Mackey MD at [facility] Implant Right: Knee [employer] DIV OF J AND J [id number] 02/25/2025 [id number] / / [id number] Dev Contrl Tiss Stratafix Symm Pds Plus Bhavani Ct-1 45cm - [id number] Implanted:Qty: 1 on 07/31/2023 by Tor Mackey MD at [facility] Implant Right: Knee [employer] DIV OF J AND J [id number] 12/26/2024 [id number] / / [id number] Base Tib/Kn Gen2 Nonpor Ti Sz2 Rt - [id number] Implanted:Qty: 1 on 07/31/2023 by Tor Mackey MD at [facility] Implant Right: Knee [employer] [id number] 07/12/2032 [id number] / / [id number] Comp Fem Legion Oxinium Cr Nrw Sz4n Rt - [id number] Implanted:Qty: 1 on 07/31/2023 by Tor Mackey MD at [facility] Implant Right: Knee [employer] [id number] 05/18/2033 [id number] / / [id number] Patella Resrf Gen2 7.5x32mm - [id number] Implanted:Qty: 1 on 07/31/2023 by Tor Mackey MD at [facility] Implant Right: Knee [employer] [id number] 05/21/2033 [id number] / / [id number] Insrt Art/Kn Legion Cr Hf Xlpe Sz1to2 10mm - [id number] Implanted:Qty: 1 on 07/31/2023 by Tor Mackey MD at [facility] Implant Right: Knee [employer] [id number] 03/06/2033 [id number] / / [id number] Totl Kn Julio Mackenzie Nephew - [id number] Implanted:Qty: 1 on 07/31/2023 by Tor Mackey MD at [facility] Implant Right: Knee [employer] [id number] / / Procedures Procedure Name Priority Date/Time Associated Diagnosis Comments AK ARTHROCENTESIS ASPIR&/INJ MAJOR JT/BURSA W/O US Routine 04/17/2025 9:08 AM EDT Primary osteoarthritis of left knee US BREAST RIGHT LIMITED Routine 03/16/2025 10:45 AM EDT Fibrocystic breast disease (FCBD), unspecified laterality MAMMO DIAGNOSTIC DIGITAL TOMOSYNTHESIS BILATERAL W CAD Routine 03/16/2025 10:13 AM EDT Fibrocystic breast disease (FCBD), unspecified laterality AMBRY GENETIC ASSESSMENT Routine 03/04/2025 1:31 PM EDT SCANNED - LABS 03/03/2025 from Last 3 Months Results * AK ARTHROCENTESIS ASPIR&/INJ MAJOR JT/BURSA W/O US (04/17/2025 [...] to verify the correct patient, procedure, equipment, learning support resource room teacher and site/side marked as required. Patient was prepped and draped in the usual sterile fashion. us Tor Mackey MD PROCEDURE/MINOR SURGICAL ORDER [place] Final Result * US Breast Right Limited (03/16/2025 10:45 AM EDT) Anatomical Region Laterality Modality Breast Right Ultrasound 03/16/2025 10:0 9 AM EDT Impressions 03/16/2025 10:49 AM EDT 1. Right breast: No suspicious abnormality is seen. Recommendation is for continued routine annual screening mammogram unless clinical or risk factors dictate otherwise. 2. Left breast: No suspicious abnormality is seen. Recommendation is for continued routine annual screening mammogram unless clinical or risk factors dictate otherwise. 3. Today's findings and recommendations were discussed with the patient at the time of the examination by myself. OVERALL ASSESSMENT: BI-RADS Category 1: Negative. Recommend continued routine follow-up. 03/16/2025 10:49 AM by Yolanda De Jesus MD on Narrative 03/16/2025 10:49 AM EDT EXAM: MAMMO DIAGNOSTIC DIGITAL TOMOSYNTHESIS BILATERAL W CAD- DATE:03/16/2025 9:50 AM INDICATION: 64-year-old female who presents for diagnostic mammogram for history of fibrocystic change. Patient has no concerns or complaints at today's exam. Paternal grandmother with history of breast cancer COMPARISON: Comparison is made to prior studies dating back to 12/24/2017 TECHNIQUE: 2D/3D CC and MLO views of each breast as well as 2D/3D spot right CC and 2D/3D exaggerated lateral right cc views were obtained. FINDINGS: There are scattered areas of fibroglandular density. Right breast: Suspected density in the lateral right breast on only one of the CC images central presses out with today's spot compression imaging with no suspicious abnormality identified on today's exaggerated lateral right cc with tomosynthesis. Left breast: No suspicious masses, calcifications, or areas of distortion are seen. Targeted sonographic imaging the lateral right breast was performed by the technologist and myself. An island of heterogeneous normal breast tissue is marked by the technologist. Survey sonographic imaging of the lateral right breast performed by myself demonstrates normal breast tissue. No suspicious abnormality is identified. Yolanda De Jesus MD [facility] US ORDERABLES Fi nal Result * Mammo Diagnostic Digital Tomosynthesis Bilateral With CAD (03/16/2025 10:13 AM EDT) Anatomical Region Laterality Modality Breast Bilateral Mammography 03/16/2025 10:0 9 AM EDT Impressions 03/16/2025 10:49 AM EDT 1. Right breast: No suspicious abnormality is seen. Recommendation is for continued routine annual screening mammogram unless clinical or risk factors dictate otherwise. 2. Left breast: No suspicious abnormality is seen. Recommendation is for continued routine annual screening mammogram unless clinical or risk factors dictate otherwise. 3. Today's findings and recommendations were discussed with the patient at the time of the examination by myself. OVERALL ASSESSMENT: BI-RADS Category 1: Negative. Recommend continued routine follow-up. 03/16/2025 10:49 AM by Yolanda De Jesus MD on Narrative 03/16/2025 10:49 AM EDT EXAM: MAMMO DIAGNOSTIC DIGITAL TOMOSYNTHESIS BILATERAL W CAD- DATE:03/16/2025 9:50 AM INDICATION: 64-year-old female who presents for diagnostic mammogram for history of fibrocystic change. Patient has no concerns or complaints at today's exam. Paternal grandmother with history of breast cancer COMPARISON: Comparison is made to prior studies dating back to 12/24/2017 TECHNIQUE: 2D/3D CC and MLO views of each breast as well as 2D/3D spot right CC and 2D/3D exaggerated lateral right cc views were obtained. FINDINGS: There are scattered areas of fibroglandular density. Right breast: Suspected density in the lateral right breast on only one of the CC images central presses out with today's spot compression imaging with no suspicious abnormality identified on today's exaggerated lateral right cc with tomosynthesis. Left breast: No suspicious masses, calcifications, or areas of distortion are seen. Targeted sonographic imaging the lateral right breast was performed by the technologist and myself. An island of heterogeneous normal breast tissue is marked by the technologist. Survey sonographic imaging of the lateral right breast performed by myself demonstrates normal breast tissue. No suspicious abnormality is identified. Javi Nguyen MD IMG MAMMOGRAPHY ORDERABLE S Final Result * (ABNORMAL) [facility] GENETIC RISK ASSESSMENT QUESTIONNAIRE - , (03/04/2025 1:31 PM EDT) Herb 10.5 [facility] GENETICS NCCN NCCN met(A) [facility] GENETICS Comment:High Risk Cancer Ris k Assessment 03/04/2025 1:31 PM EDT Javi Nugyen MD GENETIC TESTING Final Res ult [employer]
[address] [place] [address], [place] [phone] * LABS SCANNED (03/03/2025) [facility] Onbase LAB BLOOD ORDERABLES Final Re sult from Last 3 Months Insurance [facility] Advance Directives * CPR (Attempt to Resuscitate) (Latest Code Status on File) Date Activated Date Inactivated Comments 07/31/2023 3:38 PM 08/01/2023 7:46 PM Question Answer Comments Code Status (Patient has no pulse and is not breathing): CPR (Attempt to Resuscitate) Medical Interventions (Patie nt has pulse or is breathing): Full Support Care Teams Manager Car Relationship Specialty Start Date End Date Javi Nguyen MD [address] [place] [facility] [address] [facility] [address] [place] [address] PCP - General 07/14/15
--- OUTSIDE RECORDS SUMMARY | 2025-05-25 16:40 | XMS_ITS | Encounter Summary ---
Author Organization [facility] Address [address] [place] [address] Care Team Providers Care Security Intern Name Role Phone Javi Nguyen MD Primary Care Provider [phone] Encounter Details Date Type Department Care Team (Latest Contact Info) Description 04/17/2025 Travel Social History Tobacco Use Types Packs/Day Years [...] or training? Not on file Preferred Language Tanzanian 08/01/2023 Comments No Sex and Gender Information Value Date Recorded Sex Assigned at Female 02/14/2025 9:54 AM EDT Legal Sex Female 10:56 AM EDT Gender Identity Not on file Sexual Orientation Not on file documented as of this encounter Plan of Treatment Upcoming Encounters Date Type Department Care Team (Late st Contact Info) Description 06/12/2025 8:40 AM EDT Office Visit [facility] CARDIOLOGY [address] [facility] [address] [place] [address] Verito Castañeda, CONDENSER SETTER [address] [facility] [address] [place] [address] 08/21/2025 8:40 AM EDT Office Visit [facility]OPED[facility] & [facility]ORTS MEDICINE [address] [facility] [address] [place] [address] Tor Mackey MD [address] [facility] [address] [place] [address] documented as of this encounter Visit Diagnoses Not on filedocumented in this encounter Care Teams Security Intern Relationship Specialty Start Date End Date Javi Nguyen MD [address] [facility] [address] [facility] [place] [address] PCP - General 07/14/15 documented as of this encounter
--- OUTSIDE RECORDS SUMMARY | 2025-05-25 16:40 | XMS_ITS | Patient Health Record ---
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 Gr. 1.015 Ketone Neg Bili Neg Gluc Neg Influenza Screen (in house) Reviewed date:12/15/2024 07:40:20 AM Interpretation:neg Performing Lab: Notes/Report: neg results neg Rapid Strep- Inhouse Reviewed date:12/15/2024 07:40:31 AM Interpretation:pos Performing Lab: Notes/Report: pos strep test pos Covid test (in house) Reviewed date:12/15/2024 07:40:11 AM Interpretation:neg Performing Lab: Notes/Report: neg Result: neg CBC Venipuncture (in house) Reviewed date:02/03/2025 01:01:34 [...] 132 Performing Lab: Notes/Report: Test performed by [facility] [address] [place] [address] , [address], [place] [address] Hernesto Torres MD, Licensed Practical Nurse Clinic Nurse CLIA: [id number] Sodium 142 135-145 mmol/L Potassium 3.4 3.5-5.3 [...] Interpretation:Normal Performing Lab: Notes/Report: Test performed by [facility] [address] [place] [address] , [address], [place] [address] Hernesto Torres MD, Licensed Practical Nurse Clinic Nurse CLIA: [id number] TSH 5.02 0.43-5.25 mU/L DEXA Hip and Spine (Not yet reviewed by provider) Interpretation:osteopenia Performing Lab: Notes/Report: osteopenia Dexa results osteopenia DEXA Hip and Spine (Not yet reviewed by provider) Interpretation:osteopenia Performing Lab: Notes/Report: osteopenia Dexa results osteopenia Mammogram Reviewed date:04/24/2025 02:25:35 PM Interpretation:Negative Performing Lab: Notes/Report: Negative result neg P-Basic Metabolic Panel (BMP ) Reviewed date:03/13/2025 04:25:51 PM Interpretation:Normal Performing Lab: Notes/Report: Test performed by [facility], [address] , [address], [place] [address] Hernesto Torres MD, Licensed Practical Nurse Clinic Nurse CLIA: [id number] Sodium 141 135-145 mmol/L Potassium 4.0 3.5-5.3 mmol/L Chloride 101 97-108 mmol/L CO2 28 22-32 mmol/L Glucose 103 65-99 mg/dL BUN 14 8-23 mg/dL Creatinine 0.93 0.50-1.00 mg/dL Calcium 9.8 8.6-10.4 mg/dL eGFR by Creatinine 69 >59 mL/min/1.73m2 Mammogram, Bilateral Diagnos tic Reviewed date:03/19/2025 04:57:58 PM Interpretation:Negative, recommend continued routine f/u Performing Lab: Notes/Report: Negative, recommend continued routine f/u P-Surgical Pathology Reviewed date:12/03/2024 09:45:36 AM Interpretation:Seborrheic keratosis, pigmented Performing Lab: Notes/Report: Surgical Pathology View Report Patient Name: JUAN ESPINOZA Age-Sex-: 64y F 1960 Procedure Date: 11/28/2024 Accession Date: 11/29/2024 Pt Acct#: Report Date: 12/02/2024 Location: OFFICE Physician(s): Javi Nguyen MD P A T H O L O G Y R E P O R T DIAGNOSIS: 1. Skin, right shoulder, biopsy: Seborrheic keratosis, pigmented. 2. Skin, left shoulder, biopsy: Seborrheic keratosis, pigmented. Dayna Woo MD electronically signed 12/02/2024 12:00 PM Gross Description: 1. Received in formalin labeled Juan Espinoza R shoulder and consists of a pale arnett, rubbery, lobulated and irregular portion of skin measuring 0.9 x 0.5 x 0.2 cm. The base is inked blue. The specimen is sectioned and entirely submitted in cassette 1A, 12/27. 2. Received in formalin labeled Juan Espinoza L shoulder and consists of a white-arnett, rubbery, disrupted portion of skin measuring 0.8 x 0.4 x 0.2 cm. The base is inked blue. The specimen is sectioned and entirely submitted in cassette 2A, 11/29. Please note: The specimen is friable. Also in the container are multiple pieces of white-arnett tissue measuring 1.4 x 0.4 x 0.2 cm in loose aggregate. The specimen is filtered and entirely submitted in cassette 2B, /. (NM5,KK8,ls12) Grossing services provided by [facility], [facility], d/b/a [address] [place], [address] Ramu Leigh MD, Licensed Practical Nurse Clinic Nurse. Microscopic Description: 1. There is epidermal hyperplasia with formation of keratin cysts. No significant cytologic atypia is present. The keratinocytes show melanin pigmentation. These are features of a pigmented seborrheic keratosis. 2. There is epidermal hyperplasia with formation of keratin cysts. No significant cytologic atypia is present. The keratinocytes show melanin pigmentation. These are features of a pigmented seborrheic keratosis. 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 Mole right shoulder 2. Mole left shoulder Unless specified otherwise above, the quality of the H and E and any other stains performed is satisfactory, and any internal or external positive and negative controls react appropriately. End of Report Technical services provided by [facility], [facility], d/b/a [address] , [place] [address] Ramu Leigh MD, Licensed Practical Nurse Clinic Nurse. Case reviewed and diagnosis rendered at [facility], [facility], d/b/a [address] , [place] [address] Ramu Leigh MD, Licensed Practical Nurse Clinic Nurse. CONFIDENTIAL Medications Medication SIG (Take, Route, Frequency, Duration) Notes Start Date End Date Status Docusate Sodium 100 MG 2 capsule as need ed Orally Once a day; Duration: 30 day(s) 12/03/2023 Active Levothyroxine Sodium 75 MCG TAKE 1 TABLE T BY MOUTH IN THE MORNING ON AN EMPTY STOMACH; Duration: 90 Active Esomeprazole Magnesium 40 MG 1 cap(s) or ally once a day; Duration: 90 days 11/25/2021 Active Rosuvastatin Calcium 10 MG TAKE 1 TABLET BY MOUTH AT BEDTIME; Duration: 90 Active B-12 1000 MCG 1 tab(s) orally once a day; Duration: 30 day(s) Active Escitalopram Oxalate 5 MG Take 1 tablet by mouth once daily; Duration: 90 Active Albuterol Sulfate HFA 108 (90 Base) MCG/ACT 1 puff as needed Inhaled every 4 hrs, prn 12/12/2023 Active Valsartan-hydroCHLOROthiazid e 320-25 MG Take 1 tablet by mouth once daily; Duration: 90 Active Metoclopramide HCl 5 MG Take 1 tablet by mouth twice daily for 90 days; Duration: 90 Active Fluticasone Propionate 50 MCG/ACT 2 spray each nostril each nostril once a day 12/09/2019 Active Carvedilol 12.5 MG TAKE 1 & 1/2 (ONE & ONE-HALF) TABLETS BY MOUTH IN THE MORNING AND 1 IN THE EVENING; Duration: 90 Active Ibuprofen 600 MG 1 tab(s) orally 4 ti mes a day prn 01/12/2016 Active Xyzal Allergy 24HR 5 MG 1 tab(s) orally once a day (in the evening); Duration: 90 days Active Ubrelvy 100 MG 1 tab(s) 1 tab by mo uth may repeat in 2 hours if headache is still present Active Osteo Bi-Flex One Per Day - 1 tablet twice a day Active traZODone HCl 50 MG 1 tablet at bedtime as needed Orally Once a day; Duration: 90 days Active Slow-Mag 71.5-119 MG 2 tablets Orally On ce a day; Duration: 30 day(s) Active Diclofenac Sodium 3 % 1 application Exte rnally Twice a day 05/19/2024 Active Coenzyme Q10 200 MG as directed orally o nce a day; Duration: 90 days 11/25/2021 Active Potassium Chloride ER 10 MEQ 1 tablet wi th food Orally Once a day; Duration: 30 days 02/19/2025 Active Xarelto 20 MG 1 tab(s) orally once a day (in the evening); Duration: 30 day(s) Active Flecainide Acetate 50 MG 1 tab(s) orally Two times a day; Duration: 90 days Active Immunizations Vaccine Route Administration Date Status Comme nts COVID 19 Pfizer Unknown 01/27/2021 Administered COVID 19 Pfizer Unknown 02/24/2021 Administered COVID 19 Pfizer Unknown 08/27/2021 Administered Flublok IM Intramuscular 08/18/2021 Administered Fluzone Intradermal Quad private(18-64yrs) ID Intradermal 08/09/2015 Administered Fluzone Intradermal Quad private(18-64yrs) ID Intradermal 07/31/2016 Administered Fluzone PF Quad (6-35 months) Unknown 08/23/2022 Administered Fluzone Quad (6months&older) IM Intramuscular 08/23/2017 Administered Fluzone Quad (6months&older) IM Intramuscular 08/19/2018 Administered Fluzone Quad (6months&older) IM Intramuscular 08/19/2019 Administered Fluzone Quad (6months&older) IM Intramuscular 07/09/2020 Administered Fluzone Quad (6months&older) IM Intramuscular 10/10/2023 Administered Fluzone Quad (6months&older) IM Intramuscular 09/19/2024 Administered Hepatitis A (adult) Unknown 08/28/2018 Administered Hepatitis A (adult) Unknown 03/06/2019 Administered PNEUMOVAX 23 VACCINE IM Intramuscular 07/21/2013 Administe red PNEUMOVAX 23 VACCINE Unknown 08/28/2018 Administered Prevnar (PCV20) Unknown 04/10/2022 Administered Shingrix IM Intramuscular 04/18/2021 Administered Given by Yessenia Arias Shingrix IM Intramuscular 10/24/2021 Administered Tetanus Tdap-Adacel (over 7yrs) IM Intramuscular 05/24/2016 Administered xAdministration of injection Unknown 10/24/2021 Administered xFlu shot-36 months and older IM Intramuscular 09/08/2006 Administered xFlu shot-36 months and older IM Intramuscular 09/30/2007 Administered xFlu shot-36 months and older IM Intramuscular 09/08/2008 Administered xFlu shot-36 months and older IM Intramuscular 07/09/2009 Administered xFlu shot-36 months and older IM Intramuscular 07/20/2011 Administered xFluzone (6mos and older)-trivalent IM Intramuscular 07/14/2010 Administered xFluzone (6mos and older)-trivalent IM Intramuscular 08/07/2012 Administered xFluzone (6mos and older)-trivalent ID Intradermal 09/14/2014 Administered xFluzone Intradermal (18-64yrs)-trivalent ID Intradermal 07/21/2013 Administered Problems Problem Type SNOMED Code ICD Code Onset Dates Problem Status W/U Status Risk Notes Problem Goiter (1421521) Goiter NOS (240.9) Active conf irmed Problem Essential hypertension (89931123) Essential hypertension (I10) Active confirmed Problem Osteopenia (460708967) Osteopenia (M85.80) Active confirmed Problem Mixed anxiety and depressive disorder (965883459) Depression with anxiety (F41.8) Active confirmed Problem Paroxysmal atrial fibrillation (256956296) Paroxysmal atrial fibrillation (I48.0) Active confirmed Problem Seasonal allergic rhinitis (205370381) Other seasonal allergic rhinitis (J30.2) Active confirmed Problem Pure hypercholesterolemia (221471481) Pure hypercholesterolemia (E78.0) Active confirmed Problem Primary insomnia (6076614) Primary insomnia (F51.01) Active confirmed Problem Episodic tension-typ e headache (200769496) Episodic tension-type headache, not intractable (G44.219) Active confirmed Problem Chronic pain (07394243) Other chronic pain (G89.29) Active confirmed Problem Supraventricular tachycardia (3551059) Supraventricular tachycardia (I47.1) Active confirmed Problem Slow transit constipation (72028078) Slow transit constipation (K59.01) Active confirmed Problem Goiter (7721028) Goiter (E04.9) Active confirme d Problem Gastroesophageal reflux disease (305306947) GERD without esophagitis (K21.9) Active confirmed Problem Chronic pain (92705143) Other chronic pain (G89.29) Active confirmed Problem Acquired hypothyroidism (260791331) Acquired hypothyroidism (E03.9) Active confirmed Problem Bronchitis (37679763) Bronchitis (J40) Active c onfirmed Problem Hormone replacement therapy (132200448) Hormone replacement therapy (Z79.890) Active confirmed Problem Headache (49787142) Periodic hea dache syndrome, not intractable (G43.C0) Active confirmed Problem Pneumonia (359408286) Pneumonia of right lower lobe due to infectious organism (J18.9) Active confirmed Problem Pain in right leg (432042730) Right leg pain (M79.604) Active confirmed Problem Obstructive sleep apnea syndrome (24534113) JAYCEE (obstructive sleep apnea) (G47.33) Active confirmed Problem Long-term current us e of anticoagulant (928194942) Current use of long term acute care registered nurse anticoagulation (Z79.01) Active confirmed Problem Essential hypertension (98872327) Essential hypertension with goal blood pressure less than 130\/80 (I10) Active confirmed Problem Fibrocystic breast changes (80483295) Fibrocystic breast disease (N60.19) Active confirmed Problem Artificial knee join t present (598562188770) Status post right knee replacement (Z96.651) Active confirmed Problem Refractory migraine without aura (998342623) Intractable migraine without aura and without status migrainosus (G43.019) Active confirmed Problem Allergic rhinitis (40736700) Seasonal allergic rhinitis due to other allergic trigger (J30.89) Active confirmed Problem Pure hypercholesterolemia (005129915) Pure hypercholesterolemia (E78.00) Active confirmed Problem Pure hypercholesterolemia (415440108) Pure hypercholesterolemia, unspecified (E78.00) Active confirmed Problem Breast lump (25464189) Breast lump on left side at 1 o'clock position (N63) Active confirmed Problem Osteoarthritis of knee (534388735) Arthropathy of both knees (M17.0) Active confirmed Problem Fibrocystic breast changes (97826629) Fibrocystic breast disease (FCBD), unspecified laterality (N60.19) Active confirmed Problem Seasonal allergic rhinitis (234034472) Seasonal allergic rhinitis, unspecified trigger (J30.2) Active confirmed Problem Allergic rhinitis (55791032) Non-seasonal allergic rhinitis, unspecified trigger (J30.89) Active confirmed Problem Pure hypercholesterolemia (237984303) Borderline hypercholesterolemia (E78.00) Active confirmed Vital Signs Heart Rate 62 /min 05/25/2025 Blood pressure diastolic 80 mm Hg 05/25/2025 Height 64.50 in 05/25/2025 Blood pressure systolic 130 mm Hg 05/25/2025 Weight 192 lbs 05/25/2025 BMI 32.44 kg/m2 05/25/2025 Encounters Encounter Location Date Provider Diagnosis [facility] [address] [facility] [address] [place], [place] [id number] 09/19/2024 Mary Jo Nguyen Essential hypertensi on I10 ; Pure hypercholesterolemia E78.0 ; Acquired hypothyroidism E03.9 ; Primary insomnia F51.01 ; GERD without esophagitis K21.9 ; Status post right knee replacement Z96.651 ; Neoplasm of skin D49.2 and Encounter for immunization Z23 [facility] [address] [place], [place] [id number] 11/28/2024 Mary Jo Nguyen Neoplasm of skin of shoulder D49.2 [facility] [address] [place], [place] [id number] 12/12/2024 Evon Imelda Acute URI J06.9 and Strep pharyngitis J02.0 [facility] [address] [place], [place] [id number] 01/30/2025 Mary Jo Nguyen Essential hypertensi on I10 ; Osteopenia M85.80 ; Paroxysmal atrial fibrillation I48.0 ; Status post right knee replacement Z96.651 ; Acquired hypothyroidism E03.9 ; Fibrocystic breast disease N60.19 and Anemia associated with acute blood loss D62 [facility] [address] [place], [place] [id number] 03/03/2025 Mary Jo Nguyen Hypokalemia E87.6 [facility] [address] [place], [place] [id number] 05/25/2025 Mary Jo Nguyen Essential hypertensi on I10 ; Paroxysmal atrial fibrillation I48.0 and Near syncope R55 [facility] [address] [place], [place] [id number] 10/31/2024 Mary Jo Nguyen [facility] [address] [place], [place] [id number] 12/03/2024 Mary Jo Nguyen [facility] [address] [place], [place] [id number] 02/04/2025 Mary Jo Nguyen [facility] [address] [place], [place] [id number] 02/19/2025 Mary Jo Nguyen [facility] [address] [place], [place] [id number] 03/02/2025 Mary Jo Nguyen Assessments Encounter Date Diagnosis (ICD Code) Assessment Notes Treatment Notes Treatment Clinical Notes Section Notes 09/19/2024 Essential hypertensi on (ICD-10 - I10) 09/19/2024 Pure hypercholesterolemia (ICD-10 - E78.0) 11/28/2024 Neoplasm of skin of shoulder (ICD-10 - D49.2) 12/12/2024 Strep pharyngitis (ICD-10 - J02.0) Rest, Fluids, tylenol or motrin for fever, gargle with warm water or salt water, throw away toothbrush after a few days on the antibiotic 12/12/2024 Acute URI (ICD-10 - J06.9) Has cough medication at home. 01/30/2025 Essential hypertensi on (ICD-10 - I10) 01/30/2025 Osteopenia (ICD-10 - M85.80) 03/03/2025 Hypokalemia (ICD-10 - E87.6) 05/25/2025 Essential hypertensi on (ICD-10 - I10) 05/25/2025 Paroxysmal atrial fibrillation (ICD-10 - I48.0) 05/25/2025 Near syncope (ICD-10 - R55) 01/30/2025 Paroxysmal atrial fibrillation (ICD-10 - I48.0) 09/19/2024 Acquired hypothyroid ism (ICD-10 - E03.9) 09/19/2024 Primary insomnia (IC D-10 - F51.01) 01/30/2025 Status post right kn ee replacement (ICD-10 - Z96.651) 01/30/2025 Acquired hypothyroid ism (ICD-10 - E03.9) 09/19/2024 GERD without esophag itis (ICD-10 - K21.9) 09/19/2024 Status post right kn ee replacement (ICD-10 - Z96.651) 01/30/2025 Fibrocystic breast disease (ICD-10 - N60.19) 09/19/2024 Neoplasm of skin (IC D-10 - D49.2) 01/30/2025 Anemia associated wi th acute blood loss (ICD-10 - D62) 09/19/2024 Encounter for immunization (ICD-10 - Z23) Plan Of Treatment Pending Test Test Name Order Date Urinalysis - Inhouse 05/25/2025 Ultrasound : Breasts, bilateral 01/31/20 25 DEXA Hip and Spine 01/30/2025 Holter Monitor- 48 hour 05/25/2025 P-Basic Metabolic Panel (BMP) 05/25/2025 Next Appt Details Provider Name:Mary Jo Ferguson er, 06/01/2025 01:30:00 PM, [address], [address], [place], [phone], Provider Name:Mary Jo Ferguson er, 07/03/2025 09:30:00 AM, [address], [place], [id number], Insurance Providers Payer Name Payer Address Payer Phone Subscriber Number Group Number Insured Name Patient Relationship to Insured Coverage Start Date Coverage End Date ZEV [address] [place], [place] [id number] JUAN ESPINOZA Self - patient is the insured Medications Administered Medication Instructions Date of Administration Dosage Notes Dexamethasone 08/22/2010 1 mL Dexamethasone 10/18/2010 1 mL Dexamethasone 03/13/2016 1 mL Dexamethasone 01/12/2021 1 mL Dexamethasone 05/18/2021 1 mL Medical (General) History Medical History History ICD Code Hypothyroidism Allergies Colonoscopy 1 polyp, 03/2008 Dexa Scan, 07/25/2011 Palpitations Benign Hematuria RT Humeral Head Avascular Necrosis Calcium Score of 2, Small Hiatal Hernia, 06/26/2019 Echo-GXT with 102% Predicted Exercise Ca pacity, 02/2013 Surgical History Surgery Date(Month/Year) Tubal Ligation Bladder x 2 Tonsillectomy Colonoscopy 07/2014 RT Shoulder Replacement, Dr. Jerome 04/29 right knee replacement, Dr. Mackey 07/31/20 Hysteroscopy - Dr. Adrian 11/06/2023 [facility], Dr. Adrian 01/06/2025
== END 2025-05-25 23:59 | disposition home or self-care (01) ==
PROVIDERS: PCP Family Medicine; Visit Provider Family Medicine
DX: I49.1 Atrial premature depolarization (principal); I48.0 Paroxysmal atrial fibrillation; R94.31 Abnormal electrocardiogram [ECG] [EKG]
CPT/HCPCS: 93225; 93227